=== PATIENT | male | born 1955 | race Caucasian/White ===

== ENCOUNTER → 2019-07-09 14:05 | Outpatient (CLI) | payer MEDICARE, OTHER, SELFPAY ==
--- NOTE | 2019-07-09 14:10 | CT_ITS ---
PROCEDURE: CT LUNG SCREENING CLINICAL INDICATION: H/O NICOTINE DEPENDENCE Fifty-three pack-year smoking history, asymptomatic for lung cancer COMPARISON: No exams were available for comparison TECHNIQUE: The exam was performed on a GE Light Speed [address] scanner using 2.90 mGy CTDI. A low dose helical CT CHEST was performed on a multi-detector scanner. All CT scans at the facility use one or more dose reduction, viz: automated exposure control, ma/kV adjustment per patient size (including targeted exams where dose is matched to indication, i.e. head), or iterative reconstruction technique. The LDCT was performed in a facility that meets the criteria for the screening program. Data regarding this exam was submitted to ACR which is an approved registry. The order for this exam indicates that it came as a result of a lung cancer screening counseling shard decision-making visit that included all the elements required of such a visit including smoking cessation. The radiologist interpreting this exam meets the [facility] criteria for the LDCT lung cancer screening program. The exam is reported using the Lung-RADS classification scale and reported to the ACR registry. NOTE: This study was performed for the specific purposes of lung cancer screening and is not an alternative to diagnostic chest CT. RADIATION DOSE: CTDI vol(CT dose Index-volume) = 2.90mG DLP (Dose Length Product) = 108.12 mGcm Lung Rads Category: FINDINGS: There arm several small bilateral pulmonary nodular opacities most of which are calcified. These are 4 mm or less consistent with granulomas. There is a 3 mm noncalcified nodule in the right lower lobe posteriorly image 48 series 3. No suspicious nodules are evident. Calcified nodes are present in the hilum. OTHER FINDINGS: There are coronary artery calcifications. There 2 stones in the right kidney measuring up to 6 mm. Degenerative changes are present in the thoracic spine. Suspect COPD with hyperinflation and mild prominence of the interstitial markings. Gynecomastia IMPRESSION: BI-RADS category [address] benign. Recommend annual LD CT Other incidental findings as described above Dictated by: Chucho Taylor MD 07/26/2019 06:45 Electronically signed by Chucho Taylor MD in [place] 07/26/2019 06:45
== END ==
PROVIDERS: PCP Family Medicine; Visit Provider Family Medicine
DX: Z87.891 Personal history of nicotine dependence (principal); Z12.2 Encounter for screening for malignant neoplasm of respiratory organs

== ENCOUNTER → 2019-07-24 08:26 | Outpatient (CLI) | payer MEDICARE, OTHER, SELFPAY ==
[2019-07-24 14:18] LABS: Coronavirus 19 IgG Antibody Negative (Negative); Coronavirus 19 IgM Antibody Negative (Negative)
== END ==
PROVIDERS: Visit Provider Internal Medicine Gastroenterology
DX: Z01.818 Encounter for other preprocedural examination (principal)
CPT/HCPCS: 36415; 86328

== ENCOUNTER 2019-07-27 07:42 | Day surgery (SDC) | payer MEDICARE, OTHER, SELFPAY ==
[2019-07-22 11:08] VITALS: BMI 28.7
[2019-07-27] VITALS (7 sets, daily range): BP systolic 93–130; BP diastolic 57–83; PULSE 55–67; RESP 16–18; TEMP 36.1–36.6; O2SAT 94–97
--- NOTE | 2019-07-27 08:38 | P.PN_ITS ---
[facility] Anesthesia Checklist - Structural Data Admitted From: Home Planned Operative Procedure/s: colonoscopy Consent for Planned Operative Procedure(s) Verified: Yes - Airway Assessment C-Spine Mobility Assessed: Yes TMJ Mobility Assessed: Yes Dentition: Good Dentition - Neurological Assessment Level of Consciousness: Awake, Alert, Appropriate - Anesthesia Plan Anesthesia Risk discussed: Yes Anesthesia Plan: Verified ASA Class: II Anesthesia Type: MAC [facility] History I have reviewed the patient's past medical history: Yes Medical History: Denies:: Cancer, Diabetes Mellitus Type 1, Diabetes Mellitus Type 2, Internal Pacemaker, MRSA, Seizures *Have you ever received a pneumonia vaccine?: No *Have you received a flu vaccine this season?: No Anesthesia experience/problems:: none Laterality Cases: Right: Arthroscopy Knee Other Surgeries: No: Pacemaker Amputation: No Fractures: No - *Social History Educational Level: Completed High School Smoking Status: Current every day smoker Tobacco Type: cigarettes # Packs/Day (cigarettes): 1 Alcohol Intake: never Substance Use Type: denies use *Occupational Status:: retired *Travel in the last 8 weeks: None Family Hx:: No significant family history
--- NOTE | 2019-07-27 09:40 | P.PCN_ITS ---
[facility] Procedure Note Procedure Note:: Colonoscopy Procedure Report: Colonoscopy with submucosal injection and cold snare polypectomy Endoscopist: Chun Lal II, MD Referring physician: Pola Monreal MD Date of Procedure: July 27, 2019 Equipment: Olympus 180 variable stiffness pediatric colonoscope Sedation: MAC sedation Indication: Mr. Daniel is a 64-year-old gentleman who is here for follow-up screening/surveillance colonoscopy. His last colonoscopy was greater than 10 years ago (Dr. Tc Mason). The patient reports no abdominal pain, weight loss, change in his bowel habits or rectal bleeding. He reports no family history of colon cancer. Procedure: Prior to the procedure, a history and physical exam was performed, and patient's medications and allergies were reviewed. The risks, benefits and alternatives of the sedation and procedure were discussed with the patient. All questions were answered and informed consent was obtained. The patient was brought to the procedure room. Patient identification and proposed procedure were verified by the physician and the nurse. The patient was placed in a left lateral decubitus position and the scope was passed under direct vision. Throughout the procedure, the patient's blood pressure, pulse, and oxygen saturations were monitored continuously. The colonoscopy was accomplished without difficulty. The patient tolerated the procedure well. Findings: On digital rectal examination there was normal rectal tone. There were no external hemorrhoids. The prostate was 2+, smooth, soft, symmetric without nodules. The colonoscope was introduced through the anal canal to the rectum and advanced to the cecum. The ileocecal valve and appendiceal orifice were identified. The scope was advanced a short distance into the ileum which appeared grossly normal. The scope was then withdrawn into the colon. Within the cecum was a large wide-based 40 mm (4 cm) polyp that extended behind the ileocecal valve and was very difficult to visualize and less pulled or positioned. It was on a wide base so more than 10 mL of Eleview was injected submucosally to raise this polyp. Even a 3 cm large thin wire snare could only remove a large section of this. However, the major portion of the polyp volume was still remaining and difficult to visualize or removed colonoscopically. Portions of this large polyp were removed colonoscopically with the Montoya net. Because of the size and obscured location, it was deemed to be risky to completely remove colonoscopically. Upon withdrawal, the ascending colon was normal. There were transverse polyps x3 (4, 4 and 6 mm), descending polyps x3 (3, 5 and 7 mm) and sigmoid polyp x1 (6 mm). All of these were removed via cold snare polypectomy. There were a few scattered diverticuli in the distal descending and sigmoid colon. Upon retroflexion within the rectum there were grade 1-2 internal hemorrhoids. The preparation was excellent throughout with Graham Preparation Score of 9. The cecal time was 22 minutes. Impression: 1. Large advanced adenomatous cecal polyp (4 cm with wide base) status post partial piecemeal removal 2. Additional diminutive polyps x7 3. Mild left-sided diverticulosis 4. Grade 1-2 internal hemorrhoids Plan: Based upon the very wide size of this very advanced cecal polyp and its obscured location in a thin walled area of colon, I would favor surgical removal. I will discuss this with patient and family.
== END 2019-07-27 10:40 | disposition home or self-care (01) ==
LOC: OUTP 07:43
PROVIDERS: PCP Family Medicine; Visit Provider Internal Medicine Gastroenterology
PROC: 0DJD8ZZ Inspection of Lower Intestinal Tract, Via Natural or Artificial Opening Endoscopic (ICD-10-PCS; CPT 45378; principal; 2019-07-27 09:00)
DX: Z12.11 Encounter for screening for malignant neoplasm of colon (principal); K63.5 Polyp of colon; K57.30 Diverticulosis of large intestine without perforation or abscess without bleeding; K64.0 First degree hemorrhoids; Z72.0 Tobacco use; Z83.3 Family history of diabetes mellitus; Z82.49 Family history of ischemic heart disease and other diseases of the circulatory system; Z87.39 Personal history of other diseases of the musculoskeletal system and connective tissue; Z88.6 Allergy status to analgesic agent
CPT/HCPCS: 45381; 45385; 88305

== ENCOUNTER → 2019-08-11 07:26 | Outpatient (CLI) | payer MEDICARE, OTHER, SELFPAY ==
[2019-08-11 07:42] LABS: Basophils % 0.7 % (0.1-2.0); Eosinophils # 0.1 K/mm3 (0.0-0.4); Eosinophils % 2.6 % (0.1-12.0); Hematocrit 44.4 % (42.0-52.0); Hemoglobin 14.8 g/dL (14.1-18.0); Lymphocytes # 1.6 K/mm3 (0.7-4.5); Lymphocytes % 29.4 % (10-50); Mean Corpuscular HGB Conc 33.3 g/dL (31.8-35.4); Mean Corpuscular Hemoglobin 29.6 pg (27.0-31.2); Mean Corpuscular Volume 88.8 fl (80-94); Mean Platelet Volume 7.5 fl (7.4-10.4); Monocytes # 0.3 K/mm3 (0.1-1.0); Neutrophils # 3.2 K/mm3 (1.8-7.8); Neutrophils % 61.3 % (37.0-80.0); Platelet Count 197 K/mm3 (142-424); Red Cell Distribution Width 14.2 % (11.5-17.5); White Blood Count 5.3 K/mm3 (4.8-10.8)
--- NOTE | 2019-08-11 07:46 | ECG_ITS ---
APPROVED REPORT Exam: Resting ECG HR:57 bpm ECG Measurements Heart Rate 57 AXES NE 130 P 16 QRSd 122 QRS -38 QT 430 T 8 QTc 418 <Conclusion> Sinus bradycardia Left axis deviation RSR' or QR pattern in V1 suggests right ventricular conduction delay Abnormal ECG Electronically signed by : Andrew Amaral, 08/11/2019 14:05:28
[2019-08-11 08:35] LABS: Chloride 104 mmol/L (98-107); Potassium 4.6 mmoL/L (3.5-5.1); Sodium 139 mmol/L (136-145)
[2019-08-11 08:38] LABS: Alanine Aminotransferase 14 U/L (12-78); Albumin/Globulin Ratio 1.7 (1.1-1.8); Alkaline Phosphatase 74 U/L (38-126); Anion Gap 10.6 mEq/L (5-15); Aspartate Amino Transferase 25 U/L (17-59); Bilirubin,Total 0.6 mg/dl (0.2-1.3); Blood Urea Nitrogen 15 mg/dl (9-20); Carbon Dioxide 29 mmol/L (22.0-30.0); Estimated Glomerular Filt Rate 97 ml/min (>60); GFR (African American) 117 ML/MIN (>60); Globulin 2.3 g/dL (1.3-3.2); Glucose 99 mg/dl (74-100); Total Protein,Serum 6.3 g/dl (6.3-8.2)
[2019-08-11 10:39] LABS: Coronavirus 19 IgG Antibody Negative (Negative); Coronavirus 19 IgM Antibody Negative (Negative)
== END ==
PROVIDERS: Visit Provider Surgery
DX: Z01.812 Encounter for preprocedural laboratory examination (principal); D49.0 Neoplasm of unspecified behavior of digestive system; Z01.84 Encounter for antibody response examination
CPT/HCPCS: 36415; 80053; 85025; 86328; 93005

== ENCOUNTER 2019-08-12 07:20 | Inpatient (IN) | payer MEDICARE, OTHER, SELFPAY ==
[2019-08-10 09:49] VITALS: BMI 26.5
--- NOTE | 2019-08-10 09:49 | SUR.PREOP ---
spoke with pt and daughter, Radha, to preop and inform of need to come in in the morning for blood work, including Covid test as well as ekg Both verbalized understanding. Reviewed all prep with Radha and said pt has GoLytely and Neomycin and Emycin to take 08-11-19.
[2019-08-12] VITALS (24 sets, daily range): BP systolic 120–153; BP diastolic 67–82; PULSE 67–88; RESP 14–20; TEMP 36.4–43; O2SAT 90–98
--- NOTE | 2019-08-12 06:55 | HMH.ANESCL ---
[facility] Anesthesia Checklist - Structural Data Admitted From: Home Planned Operative Procedure/s: hemicolectomy Consent for Planned Operative Procedure(s) Verified: Yes - Additional verifications Anesthesia Reactions: No Hx Blood Transfusions: No Blood Transfusion Reaction: No - Airway Assessment C-Spine Mobility Assessed: Yes TMJ Mobility Assessed: Yes Dentition: Poor Dentition - Neurological Assessment Level of Consciousness: Awake, Alert, Appropriate - Anesthesia Plan Anesthesia Risk discussed: Yes Anesthesia Plan: Verified ASA Class: II Anesthesia Type: General [facility] History I have reviewed the patient's past medical history: Yes Medical History: Reports:: MRSA (1972) Denies:: Cancer, Diabetes Mellitus Type 1, Diabetes Mellitus Type 2, Internal Pacemaker, Seizures *Have you ever received a pneumonia vaccine?: No *Have you received a flu vaccine this season?: No Other Medical History: Denies: Blood Transfusion Reaction Anesthesia experience/problems:: none Laterality Cases: Right: Arthroscopy Knee Other Surgeries: Yes: Colonoscopy, Hernia Repair. No: Pacemaker Amputation: No Fractures: No - *Social History Smoking Status: Current every day smoker Tobacco Type: cigarettes # Packs/Day (cigarettes): 1 Alcohol Intake: current Alcohol Intake Frequency:: holidays/special occasions only Substance Use Type: denies use *Occupational Status:: employed *Travel in the last 8 weeks: None Family Hx:: Cancer
[2019-08-12 06:56] LABS: Activated Partial Thrombo Time 24.7 seconds (23.6-34.0); INR 1.14 (0.9-1.1); Prothrombin Time 11.6 seconds (9.4-11.8)
--- NOTE | 2019-08-12 08:17 | HMH.PHAVTE ---
[facility] Pharmacy VTE Monitoring - Patient Demographics Admission date: 08/12/19 Report Date: 08/12/19 Time: 08:17 Allergies/Adverse Reactions: Patient Allergies codeine [CODEINE] Adverse Reaction (Unknown, Verified 08/12/19 06:18) Height: 1.78 m Weight: 83.915 kg - VTE Risk Labs: VTE Related Lab Results PT 11.6 seconds (9.4-11.8) 08/12/19 06:30 INR 1.14 (0.9-1.1) H 08/12/19 06:30 APTT 24.7 seconds (23.6-34.0) 08/12/19 06:30 Clinical Trial Participant: No - Prophylaxis VTE Prophylaxis Ordered?: Yes Types of VTE Prophylaxis: TEDS Knee High
--- NOTE | 2019-08-12 09:16 | HMH.OPNOTE ---
Date of procedure: 08/12/19 Pre-op Diagnosis:: Colon neoplasm of uncertain behavior Post-op Diagnosis:: Same Procedure performed:: Right hemicolectomy Surgeon:: Alexis Casillas MD Resident Care Aide(s):: Dr. Andrew Andrade APPEALS BOARD REFEREE:: Andrew Harvey Anesthesia: GETA Estimated blood loss (mL): 100 Clinical Note:: This is a 64-year-old gentleman who recently underwent colonoscopy by Dr. Chun Lal. A cecal polyp that was not amenable to colonoscopic removal was noted. Partial removal did reveal adenomatous changes. No high-grade dysplasia or invasive carcinoma was noted. The surgical service was consulted for right hemicolectomy. Operative findings:: Large polypoid lesion in cecum/ileocecal valve confirmed No obvious adenopathy Operative note:: After informed consent was obtained the patient was taken to the operating room and placed in the supine position. General anesthesia was induced and his abdomen was prepped and draped in a sterile fashion. A midline laparotomy incision was made. The abdomen was entered and the Bookwalter retractor was placed in position. The right colon was carefully retracted medially as the lateral attachments were taken down with a combination of blunt dissection and electrocautery. A transection site just proximal to the ileocecal valve was carefully elevated. A window was made in the mesentery and a EDWARD stapling device was utilized to transect the distal ileum. Careful dissection then continued around the hepatic flexure. The proximal transverse colon was carefully elevated. A window was made in the mesentery and a EDWARD stapling device was utilized to transect at this site. A combination of blunt dissection, electrocautery, Enseal, and suture ligation was then utilized to take the mesentery as the right colon was carefully elevated. The right colon was passed off for pathologic evaluation. The specimen was opened on the back table to confirm a large polypoid lesion of the cecum/ileocecal valve. Attention was then turned to anastomosis and closure. The distal ileum and transverse colon were brought into [id number] approximation. A EDWARD stapler was utilized to create a common otomy which was then closed with a TX stapling device. The staple line was imbricated with interrupted 3-0 Surgilon. The crotch was also secured with the same suture. The mesenteric defect was closed with running Vicryl suture. The abdominal cavity was irrigated. No sign of injury or active bleeding was noted. Fascia was reapproximated with #2 Novafil. Skin was stapled and dressings were applied. The patient's anesthetic agents were reversed and he was extubated prior to transfer to recovery. Condition: stable Disposition: PACU Specimens:: Right colon Complications:: No immediate
--- NOTE | 2019-08-12 09:21 | HMH.ANESI ---
[facility] Anesthesia Record Part I Intake, IV Amount: 1,400 Estimated blood loss (mL): 100 Urine output (mL): 60 Blood Products used (#): none Blood Pressure: 120/73 SaO2: 95 Pulse Rate: 69 Respiratory Rate: 20 Temperature: 97.5 F Patient is:: Drowsy, Stable Stable to PACU at:: 09:17
[2019-08-12 10:05] LABS: Microscopic,Cath URINE MICROSCOPIC (MICROSCOPIC)
[2019-08-12 10:10] LABS: Appearance,Urine/Cath CLEAR (Clear); Bilirubin,Cath Negative (Negative); Blood, Urine/Cath TRACE-L (Negative); Color,Urine/Cath YELLOW (Yellow); Glucose,Urine/Cath (UA) Negative (Negative); Ketones,Urine/Cath TRACE (Negative); Leukocyte Esterase,Cath Negative (Negative); Nitrate,Cath Negative (Negative); PH,Urine/Cath 5.5 (5.0-8.5); Protein,Urine/Cath Negative (Negative); Specific Gravity, Urine/Cath >= 1.030 (1.005-1.030); Urobilinogen,Cath 0.2 EU/dl (0.2)
[2019-08-12 10:19] LABS: Squamous Epithelial Ur./Cath Occasional #/hpf (0-5); WBC,Urine/Cath Occasional #/hpf (0-3)
--- NOTE | 2019-08-12 13:06 | P.PN_ITS ---
[facility] Anesthesia Record Part II Discharge Time: 09:47 Destination: Medical Surgical Department PACU nurse assessment reviewed?: Yes Patient Condition:: Good Anesthesia Complications:: None Swallowing reflex intact?: Yes Cyanosis?: No Blood Pressure: 133/70 Pulse Rate: 82 Temperature: 98.0 F Mental Status: Alert & Oriented Pain level:: 5 Nausea and/or vomitting:: None Intake, IV Amount: 50
--- NOTE | 2019-08-12 17:25 | PC.NURSE ---
PATIENT A&O X4, LUNGS DIMINSHED, PULSES EQUAL. MIDLINE INCISION, DRESSING GAUZE WITH TEGADERM. SCANT AMOUNT OF BLOODY DRAINAGE. PATIENT SAT ON SIDE OF BED, TOLERATED WELL. THIS RN HAS ATTEMPTED TO WEAN PATIENT OFF OF O2 NC. O2 STATES DROP TO 88% ON RA. PATIENT IS CURRENTLY ON 1L NC WITH 94% O2 STATS. NO OTHER CONCERNS AT THIS TIME.
--- NOTE | 2019-08-12 18:25 | PC.NURSE ---
PATIENT RECEIVED 7MG OF MORPHINE FROM WRAPPING MACHINE HELPER PUMP.
--- NOTE | 2019-08-12 19:07 | PC.NURSE ---
report given to umm
[2019-08-13] VITALS (11 sets, daily range): BP systolic 119–157; BP diastolic 67–88; PULSE 72–91; RESP 16–19; TEMP 36.6–37.3; O2SAT 92–98; BMI 27.1; BMI 565536.9
--- NOTE | 2019-08-13 02:52 | PC.NURSE ---
A&OX4 T/O SHIFT. PT TOLERATING RA WELL T/O SHIFT. PT HAS REMAINED IN BED, AND HAS BEEN RESTING WITH EYES CLOSED MAJORITY OF SHIFT. SCUDS PRESENT TO BLE. PT TOLERATING NPO DIET WELL. POPULATION HEALTH COACH PUMP PRESENT. PT HAS HAD NO C/O THUS FAR THIS SHIFT. INCISION PRESENT TO MIDLINE OF ABD. SLIGHT SANG DRAINAGE PRESENT. DRESSING CDI. ALL BOWEL SOUNDS ACTIVE PER AUSCULTATION. F/C PRESENT DRAINING BRIGHT YELLOW URINE. VSS WILL CONTINUE TO MONITOR.
--- NOTE | 2019-08-13 05:17 | PC.NURSE ---
PT HAS RECEIVED 5MG OF MORPHINE THIS SHIFT. PUMP CLEARED AT THIS TIME.
[2019-08-13 06:35] LABS: Chloride 104 mmol/L (98-107); Potassium 4.8 mmoL/L (3.5-5.1); Sodium 133 mmol/L (136-145)
[2019-08-13 06:36] LABS: Hematocrit 42.6 % (42.0-52.0); Hemoglobin 14.3 g/dL (14.1-18.0); Lymphocytes % 8.9 % (10-50); Mean Corpuscular HGB Conc 33.5 g/dL (31.8-35.4); Mean Corpuscular Hemoglobin 29.7 pg (27.0-31.2); Mean Corpuscular Volume 88.7 fl (80-94); Mean Platelet Volume 7.1 fl (7.4-10.4); Monocytes # 0.7 K/mm3 (0.1-1.0); Monocytes % 6.3 % (1.7-9.3); Neutrophils # 9.8 K/mm3 (1.8-7.8); Neutrophils % 84.8 % (37.0-80.0); Platelet Count 193 K/mm3 (142-424); Red Cell Distribution Width 14.2 % (11.5-17.5); White Blood Count 11.6 K/mm3 (4.8-10.8)
[2019-08-13 06:38] LABS: Anion Gap 3.8 mEq/L (5-15); Blood Urea Nitrogen 13 mg/dl (9-20); Calcium 8.5 mg/dl (8.4-10.2); Carbon Dioxide 30 mmol/L (22.0-30.0); Creatinine Clearance Estimated 88 mL/min (50-200); Estimated Glomerular Filt Rate 97 ml/min (>60); GFR (African American) 117 ML/MIN (>60); Glucose 128 mg/dl (74-100)
--- NOTE | 2019-08-13 06:52 | HMH.GSPN ---
Subjective Patient reports: no new complaints Exam Vital signs and Labs for Last 24 Hours: Temp Pulse Resp BP Pulse Ox 98.0 F 78 18 145/85 H 94 L 08/13/19 03:45 08/13/19 03:45 08/13/19 03:45 08/13/19 03:45 08/13/19 03:45 Laboratory Results - last 24 hr 08/12/19 06:30: PT 11.6, INR 1.14 H, APTT 24.7 08/12/19 07:15: Urine Color Yellow, Urine Appearance Clear, Urine pH 5.5, Ur Specific [place] >= 1.030, Urine Protein Negative, Urine Glucose (UA) Negative, Urine Ketones Trace, Urine Blood Trace-l, Urine Nitrate Negative, Urine Bilirubin Negative, Urine Urobilinogen 0.2, Ur Leukocyte Esterase Negative, Urine RBC 5-10, Urine WBC Occasional, Ur Squamous Epith Cells Occasional, Urine Bacteria None 08/13/19 06:00: WBC 11.6 H D, RBC 4.80, Hgb 14.3, Hct 42.6, MCV 88.7, MCH 29.7, MCHC 33.5, RDW 14.2, Plt Count 193, MPV 7.1 L, Neut % (Auto) 84.8 H, Lymph % (Auto) 8.9 L, [place] % (Auto) 6.3, Eos % (Auto) 0.0 L, Baso % (Auto) 0.0 L, Neut # (Auto) 9.8 H, Lymph # (Auto) 1.0, [place] # (Auto) 0.7, Eos # (Auto) 0.0, Baso # (Auto) 0.0 08/13/19 06:00: Sodium 133 L, Potassium 4.8, Chloride 104, Carbon Dioxide 30, Anion Gap 3.8 L, BUN 13, Creatinine 0.80, Estimated Creat Clear 88, Estimated GFR 97, Est GFR ( Amer) 117, Glucose 128 H, Calcium 8.5 I & O for Last 24 hours: Intake & Output 08/10/19 08/11/19 08/12/19 08/13/19 11:59 11:59 11:59 11:59 Intake Total 1400 / 1400 2653 / 2653 Output Total 100 / 100 1725 / 1725 Balance 1300 / 1300 928 / 928 Weight 185 lb 189 lb 8 oz - Constitutional no acute distress - *Routine Respiratory Exam Absent: respiratory distress - *Routine Cardiovascular Exam Present: RRR - *Routine Abdominal Exam Present: soft Comments: dressing in place. no erythema. 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 DC Huang Ambulate Await return of bowel function Current Visit: Yes
--- NOTE | 2019-08-13 17:30 | PC.NURSE ---
patient in recliner with safety measures in place. no issues at this time. incision to abd cdi. pt ambulated in hallway several times today. family visited patient. no changes on this shift.
[2019-08-14] VITALS (14 sets, daily range): BP systolic 123–163; BP diastolic 72–106; PULSE 75–85; RESP 16–20; TEMP 36.7–37.2; O2SAT 91–97; BMI 26.7
--- NOTE | 2019-08-14 01:00 | PC.NURSE ---
Pt's room air sat at rest = 92%.
--- NOTE | 2019-08-14 05:41 | PC.NURSE ---
A&OX4. PT HAS TOLERATED ROOM AIR WELL THROUGHOUT SHIFT. RESPIRATIONS CLEAR AND UNLABORED. WHEEZES NOTED BILATERALLY THROUGHOUT. HEART RATE REGULAR. INTERMITTENT NONPRODUCTIVE COUGH NOTED. NO EDEMA NOTED. HAND CONVERTER SUPERVISOR EQUAL. LR INFUSING AT 150ML/HR. SQL SSRS DEVELOPER PUMP IN PLACE WITH MORPHINE 1MG INFUSING EVERY 10 MINUTES NEEDED. PT TOLERATING WELL. HYPOACTIVE BOWEL SOUNDS NOTED. SOFT TENDER ABDOMEN NOTED. DRESSING NOTED TO MIDLINE OF ABDOMEN. CDI WITH SLIGHT SANGUINEOUS DRAINAGE NOTED UNCHANGED FROM BEGINNING OF SHIFT. WILL CONTINUE TO MONITOR. PT REPORTS NO FLATUS PASSED THIS SHIFT. PT HAS WALKED WITH STANDBY ASSISTANCE TO THE RESTROOM AND IN THE HALLWAY THROUGHOUT SHIFT. PT TOLERATED WELL. INCENTIVE SPIROMETER ENCOURAGED TO USE Q 1 HOUR WHILE AWAKE. CALL LIGHT WITHIN REACH. BED IN LOWEST POSITION. VSS. NO CONCERNS AT THIS TIME. WILL CONTINUE TO MONITOR.
--- NOTE | 2019-08-14 06:34 | PC.NURSE ---
CLEARED AMOUNT IN FINISHER COLD ROLLING PUMP IS 11.7 AT THE END OF SHIFT.
[2019-08-14 06:43] LABS: Basophils % 0.1 % (0.1-2.0); Chloride 101 mmol/L (98-107); Eosinophils % 0.5 % (0.1-12.0); Hematocrit 43.4 % (42.0-52.0); Hemoglobin 14.2 g/dL (14.1-18.0); Lymphocytes # 1.1 K/mm3 (0.7-4.5); Lymphocytes % 13.6 % (10-50); Mean Corpuscular HGB Conc 32.8 g/dL (31.8-35.4); Mean Corpuscular Hemoglobin 29.3 pg (27.0-31.2); Mean Corpuscular Volume 89.3 fl (80-94); Mean Platelet Volume 7.9 fl (7.4-10.4); Monocytes # 0.7 K/mm3 (0.1-1.0); Monocytes % 8.5 % (1.7-9.3); Neutrophils # 6.4 K/mm3 (1.8-7.8); Neutrophils % 77.2 % (37.0-80.0); Platelet Count 188 K/mm3 (142-424); Potassium 4.3 mmoL/L (3.5-5.1); Red Blood Count 4.85 M/mm3 (4.60-6.20); Red Cell Distribution Width 14.1 % (11.5-17.5); Sodium 134 mmol/L (136-145); White Blood Count 8.3 K/mm3 (4.8-10.8)
[2019-08-14 06:46] LABS: Anion Gap 9.3 mEq/L (5-15); Blood Urea Nitrogen 14 mg/dl (9-20); Calcium 8.8 mg/dl (8.4-10.2); Carbon Dioxide 28 mmol/L (22.0-30.0); Creatinine Clearance Estimated 87 mL/min (50-200); Estimated Glomerular Filt Rate 113 ml/min (>60); GFR (African American) 137 ML/MIN (>60); Glucose 94 mg/dl (74-100)
--- NOTE | 2019-08-14 07:10 | HMH.GSPN ---
Subjective Patient reports: no flatus, no bowel movement Narrative: ambulating Exam Vital signs and Labs for Last 24 Hours: Temp Pulse Resp BP Pulse Ox 98.5 F 82 18 147/79 H 95 08/14/19 06:00 08/14/19 06:00 08/14/19 06:00 08/14/19 06:00 08/14/19 06:00 Laboratory Results - last 24 hr 08/12/19 06:30: Carcinoembryonic Ag 3.0 08/14/19 05:55: WBC 8.3 D, RBC 4.85, Hgb 14.2, Hct 43.4, MCV 89.3, MCH 29.3, MCHC 32.8, RDW 14.1, Plt Count 188, MPV 7.9, Neut % (Auto) 77.2, Lymph % (Auto) 13.6, [place] % (Auto) 8.5, Eos % (Auto) 0.5, Baso % (Auto) 0.1, Neut # (Auto) 6.4, Lymph # (Auto) 1.1, [place] # (Auto) 0.7, Eos # (Auto) 0.0, Baso # (Auto) 0.0 08/14/19 05:55: Sodium 134 L, Potassium 4.3, Chloride 101, Carbon Dioxide 28, Anion Gap 9.3, BUN 14, Creatinine 0.70, Estimated Creat Clear 87, Estimated GFR 113, Est GFR ( Amer) 137, Glucose 94 D, Calcium 8.8 I & O for Last 24 hours: Intake & Output 08/11/19 08/12/19 08/13/19 08/14/19 11:59 11:59 11:59 11:59 Intake Total 1400 / 1400 2653 / 2653 3618 / 3618 Output Total 100 / 100 2175 / 2175 Balance 1300 / 1300 478 / 478 3618 / 3618 Weight 189 lb 8 oz 187 lb - Constitutional no acute distress - *Routine Respiratory Exam Absent: respiratory distress - *Routine Cardiovascular Exam Present: RRR - *Routine Abdominal Exam Present: soft Comments: Incision clean, dry, and intact. No erythema. 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 Await return of bowel function Change IV fluids to maintenance Sips and chips Current Visit: Yes
--- NOTE | 2019-08-14 19:02 | PC.NURSE ---
report given to alejandro
--- NOTE | 2019-08-14 19:05 | PC.NURSE ---
pt is sitting up in the chair. pt has only used a total of 1 mg of morphine this shift. ambulating in the king and to the bathroom. chewing gum. pt was offered ice chips but stated he was okay with the chewing gum for now. midline incision open to air. normal bowel sounds. vss. will continue to monitor.
[2019-08-15] VITALS (7 sets, daily range): BP systolic 90–144; BP diastolic 66–87; PULSE 66–79; RESP 16–24; TEMP 36.7–37.2; O2SAT 91–97; BMI 26.7
--- NOTE | 2019-08-15 03:36 | PC.NURSE ---
Pt has slept on and off t/o this shift. Pt has been up to chair all evening. LABEL PRESS OPERATOR pump running appropriately. Pt ambulates to bathroom independently. VSS. No complaints at this time. Call light within reach. Will continue to monitor for any changes.
--- NOTE | 2019-08-15 09:17 | P.PN_ITS ---
Subjective Narrative: Patient without significant complaints other than soreness . Still no flatus. Ambulating well. Exam Vital signs and Labs for Last 24 Hours: Temp Pulse Resp BP Pulse Ox 98.0 F 78 24 109/75 L 93 L 08/15/19 08:33 08/15/19 08:33 08/15/19 08:33 08/15/19 08:33 08/15/19 08:33 I & O for Last 24 hours: Intake & Output 08/12/19 08/13/19 08/14/19 08/15/19 11:59 11:59 11:59 11:59 Intake Total 1400 / 1400 2653 / 2653 3905 / 3905 1770 / 1770 Output Total 100 / 100 2175 / 2175 Balance 1300 / 1300 478 / 478 3905 / 3905 1770 / 1770 Weight 189 lb 8 oz 187 lb 187 lb 0.008 oz - *Routine Abdominal Exam Present: soft Comments: Incision clean. Progress Note: A&P (1) Neoplasm of uncertain behavior of ascending colon Status: Acute Current Visit: Yes Assessment and Plan for All Diagnoses:: Decrease IVF. May have few sips of clears. DC FIRE EQUIPMENT INSPECTOR and start oral pain meds.
--- NOTE | 2019-08-15 16:38 | PC.NURSE ---
Pt has been pleasant and cooperative this shift. A&O X4. LEARNING SUPPORT SERVICES DIRECTOR pump DC'd this shift. Pt has complained of pain X2 since, and has been medicated with Hydrocodone/APAP per APR. No complaints of SOA. Lungs sounds reveal inspiratory wheezing and expiratory rhonchi. Bowel sounds present in all 4 quadrants. No edema noted. No BM this shift. Abdominal incision is open to air and c/d/i. Pt is on room air with sats. >90%. Pt ambulates independently throughout the room, to the bathroom, and in the hallway. Pt received a shower and total linen change. Pt is still NPO status but has tolerated ice chips well today. Pt is also frequently chewing sugarless gum. 20 G peripheral IV located in the RT AC patent and infusing D5W 0.45% NS w/20K+ @ 100 ML/HR. VSS. Call light within reach. Will continue to monitor.
[2019-08-16] VITALS: BP 127/69; PULSE 73; RESP 20; TEMP 37.2; O2SAT 90
[2019-08-16 04:00] VITALS: BP 112/61; PULSE 69; RESP 20; TEMP 36.7; O2SAT 91
[2019-08-16 05:00] VITALS: BMI 260110.0
--- NOTE | 2019-08-16 05:38 | PC.NURSE ---
Pt has rested well this shift. At the beginning of the shift pt ambulated once in the king. Pt c/o of abdominal pain with movement x1 this shift, PRN medication administered per APR. No complaints as of this morning. Pt has had no bowel movement or flatulence this shift. Call light within reach, no complaints at this time. Will continue to monitor.
[2019-08-16 07:48] VITALS: BP 125/65; PULSE 64; RESP 16; TEMP 36.8; O2SAT 96
[2019-08-16 07:49] VITALS: O2SAT 95
--- NOTE | 2019-08-16 09:38 | HMH.GSPN ---
Subjective Patient reports: no new complaints Narrative: Ambulating extremely well. No nausea. Still no flatus! Exam Vital signs and Labs for Last 24 Hours: Temp Pulse Resp BP Pulse Ox 98.3 F 64 16 125/65 95 08/16/19 07:48 08/16/19 07:48 08/16/19 07:48 08/16/19 07:48 08/16/19 07:49 I & O for Last 24 hours: Intake & Output 08/13/19 08/14/19 08/15/19 08/16/19 11:59 11:59 11:59 11:59 Intake Total 2653 / 2653 3905 / 3905 1770 / 1770 4031 / 4031 Output Total 2175 / 2175 400 / 400 Balance 478 / 478 3905 / 3905 1370 / 1370 4031 / 4031 Weight 189 lb 8 oz 187 lb 187 lb 0.008 oz 181 lb 4.8 oz - *Routine Abdominal Exam Present: soft Progress Note: A&P (1) Neoplasm of uncertain behavior of ascending colon Status: Acute Current Visit: Yes Assessment and Plan for All Diagnoses:: Start clear liquids.
[2019-08-16 16:00] VITALS: BP 119/66; PULSE 73; RESP 17; TEMP 36.7; O2SAT 94
--- NOTE | 2019-08-16 18:35 | PC.NURSE ---
ALERT AND ORIENTED X4. GOAL DIRECTED BEHAVIOR. PT HAS AMBULATED IN HALLWAY SEVERAL TIMES THIS SHIFT WITHOUT PROBLEM AND UP TO CHAIR FOR MOST OF THE DAY. PT HAD ONE MEDIUM SIZED WATERY YELLOW BM THIS EVENING. CLEAR LIQUID DIET TOLERATED WELL AND PT IS EAGER TO ADVANCE DIET. PAIN MEDS ADMINISTERED PER MAR. PT DENIES GI UPSET AND PAIN IS RELATED TO INCISION. VSS. NO DISTRESS NOTED. SAFETY MEASURES IN PLACE, WILL CONTINUE TO MONITOR
[2019-08-16 20:00] VITALS: BP 124/73; PULSE 73; RESP 20; TEMP 36.9; O2SAT 94
--- NOTE | 2019-08-17 03:20 | PC.NURSE ---
pt has slept t/o the night in bed. IV site in Right FA discontinued due to infiltration. 20 g was placed in new IV site on right FA. Pt has tolerated clear liquids this shift. Shows eagerness to have diet advanced. No other bowel movements since previous one on last day shift. Pt ambulated appropriately x1 this shift. No complaints at this time, will continue to monitor.
[2019-08-17 04:00] VITALS: BP 115/70; PULSE 73; RESP 18; TEMP 36.9; O2SAT 93
[2019-08-17 05:00] VITALS: BMI 25.9
[2019-08-17 07:51] VITALS: BP 99/68; PULSE 77; RESP 20; TEMP 36.7; O2SAT 94
--- NOTE | 2019-08-17 08:32 | HMH.GSPN ---
Subjective Narrative: Patient feels quite good with no complaints. He has been tolerating clear liquid diet. He states he began passing significant flatus and has had a couple of bowel movements. 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 Saline lock IV. Possible discharge this afternoon.
--- NOTE | 2019-08-17 11:35 | P.DS_ITS ---
General - General Admission date:: 08/12/19 Discharge date: 08/17/19 HPI HPI: This is a 64-year-old gentleman who recently underwent colonoscopy by Dr. Chun Lal. A cecal polyp that was not amenable to colonoscopic removal was noted. Partial removal did reveal adenomatous changes. No high-grade dysplasia or invasive carcinoma was noted. The surgical service was consulted for right hemicolectomy. Hospital Course Hospital Course: Patient was admitted on the day of surgery and taken to the operating room on 08/11/2018 at which time he underwent right hemicolectomy. He was found to have an adenomatous mass in the cecum at the ileocecal valve. There were good gross negative margins. There were no issues during his colon resection. Please see operative dictation for complete details. He was admitted for postoperative management. He remained on an n.p.o. status. Huang catheter was removed. For several days patient continued without any evidence of bowel function with no flatus. However he had no evidence of any nausea or abdominal bloating either. By postoperative day #4 he still stated he was not passing any flatus but his abdomen was soft and flat with no distention and he had no nausea. He was therefore started on a clear liquid diet at that time. He tolerated this extremely well and began passing significant amounts of flatus and had several bowel movements. His diet was advanced to full liquid which she tolerated without difficulty. His IV was saline locked. Plan was for removal of every other staple prior to discharge. After tolerating full liquid diet he was dis charged home in the afternoon of 08/17/2019 with follow-up with Dr. Casillas in 1 week. 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 Status: Acute Discharge Plan - Patient Discharge Instructions ACTIVITY: No heavy lifting DIET: advance to your usual diet Patient Instructions: DI for Surgical Site Infection, Catheter-Associated Urinary Tract Infection - Follow up Plan Follow up with: Alexis Casillas MD [Staff Physician] - 1 week Home Medications: Home Medications Medication Instructions Recorded Confirmed Type Hydrocod/Acet 5/325 mg [[place] 1 - 2 tab PO Q6HP PRN #9 tab 08/17/19 Rx 5/325mg tablet] Prescriptions/Medication Reconciliation: New Hydrocod/Acet 5/325 mg [[place] 5/325mg tablet] 1 - 2 tab PO Q6HP PRN #9 tab PRN Reason: Moderate Pain - Problem Reconciliation Problems Reviewed?: Yes
--- NOTE | 2019-08-17 12:14 | HMH.PHAINT ---
DISCHARGE COUNSELING COMPLETED ON [place] PT RECEIVED WRITTEN RX. PT DID NOT HAVE ANY QUESTIONS.
== END 2019-08-17 12:30 | disposition home or self-care (01) | DRG 331 ==
LOC: 2ND 07:20
PROVIDERS: Admitting Provider Surgery; PCP Family Medicine; Visit Provider Surgery
PROC: 0DTK0ZZ Resection of Ascending Colon, Open Approach (ICD-10-PCS; principal; 2019-08-12 07:30)
DX: D12.2 Benign neoplasm of ascending colon; Z72.0 Tobacco use; D37.4 Neoplasm of uncertain behavior of colon
CPT/HCPCS: 44140; 36415; 80048; 80053; 81001; 82378; 85025; 85610; 85730; 86328; 88309; 93005; 94761; 96372; 96374; J1335; J2405; J2543; J2710

== ENCOUNTER → 2020-08-25 15:40 | Outpatient (CLI) | payer MEDICARE, OTHER, SELFPAY ==
[2020-08-25 16:21] LABS: Basophils # 0.1 K/mm3 (0-0.2); Basophils % 0.8 % (0.1-2.0); Eosinophils # 0.2 K/mm3 (0.0-0.4); Eosinophils % 3.1 % (0.1-12.0); Hematocrit 42.8 % (42.0-52.0); Hemoglobin 14.3 g/dL (14.1-18.0); Lymphocytes % 30.4 % (10-50); Mean Corpuscular HGB Conc 33.4 g/dL (31.8-35.4); Mean Corpuscular Hemoglobin 29.1 pg (27.0-31.2); Mean Corpuscular Volume 86.9 fl (80-94); Mean Platelet Volume 7.6 fl (7.4-10.4); Monocytes # 0.4 K/mm3 (0.1-1.0); Monocytes % 6.2 % (1.7-9.3); Neutrophils # 3.8 K/mm3 (1.8-7.8); Neutrophils % 59.5 % (37.0-80.0); Platelet Count 225 K/mm3 (142-424); Red Blood Count 4.92 M/mm3 (4.60-6.20); Red Cell Distribution Width 14.6 % (11.5-17.5); White Blood Count 6.4 K/mm3 (4.8-10.8)
[2020-08-25 16:27] LABS: Chloride 108 mmol/L (98-107); Potassium 4.8 mmoL/L (3.5-5.1); Sodium 144 mmol/L (136-145)
[2020-08-25 16:30] LABS: Alanine Aminotransferase 14 U/L (12-78); Albumin Level 4.4 g/dl (3.5-5.0); Albumin/Globulin Ratio 1.6 (1.1-1.8); Alkaline Phosphatase 87 U/L (38-126); Anion Gap 12.8 mEq/L (5-15); Aspartate Amino Transferase 24 U/L (17-59); Bilirubin,Total 0.6 mg/dl (0.2-1.3); Blood Urea Nitrogen 25 mg/dl (9-20); Carbon Dioxide 28 mmol/L (22.0-30.0); Estimated Glomerular Filt Rate 75 ml/min (>60); GFR (African American) 90 ML/MIN (>60); Globulin 2.8 g/dL (1.3-3.2); Total Protein,Serum 7.2 g/dl (6.3-8.2)
[2020-08-25 16:31] LABS: Calcium 9.1 mg/dl (8.4-10.2); Glucose 121 mg/dl (74-100)
[2020-08-25 17:01] LABS: Thyroid Stimulating Hormone 1.66 uIU/mL (0.465-4.68)
[2020-08-25 23:56] LABS: Prostate Specific Ag Screen 0.5 ng/ml (0.0-4.0)
== END ==
PROVIDERS: Visit Provider Family Medicine
DX: Z00.00 Encounter for general adult medical examination without abnormal findings (principal); J44.9 Chronic obstructive pulmonary disease, unspecified; M15.0 Primary generalized (osteo)arthritis; R53.83 Other fatigue; Z12.5 Encounter for screening for malignant neoplasm of prostate
CPT/HCPCS: 36415; 80053; 84443; 85025; G0103

== ENCOUNTER → 2020-08-31 08:15 | Outpatient (CLI) | payer MEDICARE, OTHER, SELFPAY ==
--- NOTE | 2020-08-31 08:20 | US_ITS ---
PROCEDURE: US ABD. AORTA SCREENING CLINICAL INDICATION: AAA COMPARISON: CT ABDPELW/O CT ABD PELVIS W/O CONTRAST from 02/04/2013 FINDINGS: Normal caliber abdominal aorta. No evidence of aortic aneurysm to the mid aspect of the aorta. Proximal iliacs are unremarkable. IMPRESSION: No evidence of abdominal aortic aneurysm Dictated by: Chucoh Taylor MD 08/31/2020 10:30 Chucho Taylor MD in [place] 08/31/2020 10:30
== END ==
PROVIDERS: PCP Family Medicine; Visit Provider Family Medicine
DX: Z13.6 Encounter for screening for cardiovascular disorders (principal)
CPT/HCPCS: 76705

== ENCOUNTER → 2020-10-26 08:20 | Outpatient (CLI) | payer MEDICARE, OTHER, SELFPAY | PROVIDERS: Visit Provider Internal Medicine Gastroenterology | DX: Z01.812 Encounter for preprocedural laboratory examination (principal); Z20.822 Contact with and (suspected) exposure to COVID-19; Z12.11 Encounter for screening for malignant neoplasm of colon | CPT/HCPCS: U0003 ==

== ENCOUNTER 2020-10-28 07:32 | Day surgery (SDC) | payer MEDICARE, OTHER, SELFPAY ==
[2020-10-20 10:58] VITALS: BMI 28.8
[2020-10-28 07:56] VITALS: BP 111/73; PULSE 80; RESP 18; TEMP 36.6; O2SAT 95
--- NOTE | 2020-10-28 08:28 | HMH.ANESCL ---
[facility] Anesthesia Checklist - Structural Data Admitted From: Home Planned Operative Procedure/s: colonoscopy Consent for Planned Operative Procedure(s) Verified: Yes - Additional verifications Anesthesia Reactions: No Hx Blood Transfusions: No Blood Transfusion Reaction: No - Airway Assessment C-Spine Mobility Assessed: Yes TMJ Mobility Assessed: Yes Dentition: Good Dentition - Neurological Assessment Level of Consciousness: Awake, Alert, Appropriate - Anesthesia Plan Anesthesia Risk discussed: Yes Anesthesia Plan: Verified ASA Class: II Anesthesia Type: MAC [facility] History I have reviewed the patient's past medical history: Yes Medical History: Denies:: Cancer, Diabetes Mellitus Type 1, Diabetes Mellitus Type 2, Internal Pacemaker, MRSA, Seizures *Have you ever received a pneumonia vaccine?: No *Have you received a flu vaccine this season?: No Other Medical History: Denies: Blood Transfusion Reaction Anesthesia experience/problems:: none Laterality Cases: Right: Arthroscopy Knee Other Surgeries: Yes: Colonoscopy, Hernia Repair. No: Pacemaker Amputation: No Fractures: No - *Social History Last grade of school completed: High school graduate Smoking Status: Current every day smoker Tobacco Type: cigarettes # Packs/Day (cigarettes): 1 Alcohol Intake: never Alcohol Intake Frequency:: holidays/special occasions only Substance Use Type: denies use *Occupational Status:: employed Housing: house Household Members: significant other *Travel in the last 8 weeks: None Family Hx:: Unable to obtain
--- NOTE | 2020-10-28 08:29 | P.PCN_ITS ---
[facility] Procedure Note Procedure Note:: Colonoscopy Procedure Report: Colonoscopy with cold snare polypectomy Endoscopist: Chun Lal II, MD Referring physician: Pola Monreal M.D./Alexis Casillas M.D. Date of Procedure: October 28, 2020 Equipment: Olympus 190 variable stiffness pediatric colonoscope Sedation: MAC sedation Indication: Mr. Daniel is a 65-year-old gentleman who had a screening/surveillance colonoscopy with wi in July 2019 and was found to have a very large advanced cecal adenomatous polyp (4 cm). This was a tubulovillous adenoma. He did undergo right hemicolectomy subsequently (on 08/12/2019 by Alexis Casillas M.D.). The patient has done well with no complaints. He reports no abdominal pain, weight loss, change in his bowel habits or rectal bleeding. He reports no family history of colon cancer. He does state that he has a bowel movement every 3 to 4 days. Procedure: Prior to the procedure, a history and physical exam was performed, and patient's medications and allergies were reviewed. The risks, benefits and alternatives of the sedation and procedure were discussed with the patient. All questions were answered and informed consent was obtained. The patient was brought to the procedure room. Patient identification and proposed procedure were verified by the physician and the nurse. The patient was placed in a left lateral decubitus position and the scope was passed under direct vision. Throughout the procedure, the patient's blood pressure, pulse, and oxygen saturations were monitored continuously. The colonoscopy was accomplished without difficulty. The patient tolerated the procedure well. Findings: On digital rectal examination there was normal rectal tone. There were no external hemorrhoids. The prostate was 2+, smooth, soft, symmetric without nodules. The colonoscope was introduced through the anal canal to the rectum and advanced to the ileocolonic anastomosis. There was an end-to-side anastomosis which was widely patent and normal in appearance. The scope was advanced a short distance into the ileum which was normal. The scope was then withdrawn into the colon. The remaining ascending and transverse colon and mucosa were grossly normal. There were 3 diminutive polyps (transverse x2 (3 and 3 mm) and descending x1 (4 mm)) which were removed via cold snare polypectom y. There were very mildly scattered diverticuli throughout the descending and sigmoid colon (LEFT colon). The rectum itself was normal. Upon retroflexion within the rectum there were grade 2 internal hemorrhoids. The preparation was excellent throughout with [place] Preparation Score of 9. The cecal time was 12 minutes. Impression: 1. Diminutive colonic polyps x3 2. Mild left-sided diverticulosis 3. Prior right hemicolectomy with normal anastomosis 4. Grade 2 internal hemorrhoids Plan: Based upon the patient's prior and recent history of advanced adenomatous polyp/tubulovillous adenoma, I would recommend repeat surveillance in 3 years. I would encourage a fiber bowel regimen on a maintenance basis.
[2020-10-28 08:50] VITALS: BP 77/47; PULSE 69; RESP 18; TEMP 36.3; O2SAT 96
[2020-10-28 09:00] VITALS: BP 112/65; PULSE 68; RESP 18; O2SAT 96
[2020-10-28 09:10] VITALS: BP 72/42; PULSE 70; RESP 18; O2SAT 95
[2020-10-28 09:34] VITALS: BP 119/61; PULSE 60; RESP 18; O2SAT 96
--- NOTE | 2020-10-28 11:35 | HMH.PROC ---
[facility] Procedure Note Procedure Note:: Upper Endoscopy Procedure Report: Esophagogastroduodenoscopy with cold biopsies Endoscopost: Chun Lal II, MD Referring Physician: Hill Singh D.O. Date of Procedure: October 28, 2020 Equipment: Olympus GIF 190 standard upper endoscope Sedation: MAC sedation Indications: Mr. Daniel is a 65-year-old gentleman with dyspepsia. He does get epigastric abdominal discomfort and occasionally pain. He has more significant reflux postprandially. He reports moderate belching and pyrosis. He does report bloating and fullness. He states that his symptoms are worsened when he is constipated. He has occasional nausea and regurgitation. He reports no vomiting. He does report incomplete bowel evacuation. He reports no dysphagia or globus. This is his first upper endoscopy. The patient has not responded well to dietary measures and PPI therapy. Procedure: Prior to the procedure, a history and physical exam was performed, and patient's medications and allergies were reviewed. The risks, benefits and alternatives of the sedation and procedure were discussed with the patient. All questions were answered and informed consent was obtained. The patient was brought to the procedure room. Patient identification and proposed procedure were verified by the physician and the nurse. The patient was placed in a left lateral decubitus position and the scope was passed under direct vision. Throughout the procedure, the patient's blood pressure, pulse, and oxygen saturations were monitored continuously. The upper GI endoscopy was accomplished without difficulty. The patient tolerated the procedure well. Findings: The scope was passed directly into the upper esophagus and advanced to the third portion of the duodenum. The post bulbar duodenum and duodenal bulb were normal with normal mucosa and conniventes. The scope was withdrawn through a normal duodenal bulb and pylorus into the stomach. There was bile reflux with linear reactive gastropathy of the antrum. The remainder of the body and fundus of the stomach were grossly normal. Upon retroflexion there was a very small sliding 1 to 2 cm hiatal hernia. 2 biopsies were taken in the antrum and along the lesser curvature for histology to rule out gastritis and/or H pylori. The scope was then withdrawn into the esophagus. There was one tongue of salmon-colored mucosa that was biopsied to rule out Clarke's esophagus. There was evidence of mild grade A reflux esophagitis. There were some tertiary contractions and evidence of mild esophageal dysmotility. The remainder of the esophageal mucosa was normal. Impression: 1. Grade A reflux esophagitis with possible short segment Clarke's esophagus and very small sliding hiatal hernia 2. Bile reflux with linear reactive gastropathy Plan: I will follow-up the biopsies. The patient does have functional dyspepsia and functional GERD. This is related to gas pressure gradient secondary to his obstipation. We will discussed dietary measures, fiber bowel regimen, promotility therapy with or without PPI therapy. I would also consider [id number] FDgard when necessary.
[2020-10-28 12:18] VITALS: O2SAT 94
== END 2020-10-28 09:39 | disposition home or self-care (01) ==
LOC: OUTP 07:34
PROVIDERS: PCP Family Medicine; Visit Provider Internal Medicine Gastroenterology
PROC: 0DJD8ZZ Inspection of Lower Intestinal Tract, Via Natural or Artificial Opening Endoscopic (ICD-10-PCS; CPT 45378; principal; 2020-10-28 09:00)
DX: Z12.11 Encounter for screening for malignant neoplasm of colon (principal); Z86.010 Personal history of colon polyps; K63.5 Polyp of colon; K57.30 Diverticulosis of large intestine without perforation or abscess without bleeding; K64.1 Second degree hemorrhoids; Z90.49 Acquired absence of other specified parts of digestive tract; Z72.0 Tobacco use; Z88.6 Allergy status to analgesic agent
CPT/HCPCS: 45385; 88305

== ENCOUNTER → 2020-11-08 09:38 | Outpatient (CLI) | payer MEDICARE, OTHER, SELFPAY ==
--- NOTE | 2020-11-08 09:43 | XR_ITS ---
PROCEDURE: XR SHOULDER RT MIN 2V CLINICAL INDICATION: RT SHOULDER PAIN COMPARISON: No exams were available for comparison FINDINGS: No fracture or dislocation. No lytic or blastic change. There is normal mineralization. There is mild osteoarthritic change of the acromioclavicular and glenohumeral joint. Soft tissue calcification is present along the deltoid region nonspecific. No significant subacromial stenosis. Other findings:None. IMPRESSION: Mild osteoarthritic change Dictated by: Chucho Taylor MD 11/08/2020 13:44 Chucho Taylor MD in [place] 11/08/2020 13:44
== END ==
PROVIDERS: PCP Family Medicine; Visit Provider Family Medicine
DX: M25.511 Pain in right shoulder (principal)
CPT/HCPCS: 73030

== ENCOUNTER 2021-04-30 19:00 | Emergency (ER) | payer MEDICARE, OTHER, SELFPAY ==
[2021-04-30 19:00] VITALS: BP 156/82; PULSE 86; RESP 16; TEMP 36.8; O2SAT 95; BMI 28.7
--- NOTE | 2021-04-30 19:19 | CT_ITS ---
PROCEDURE INFORMATION: Exam: CT Abdomen And Pelvis Without Contrast Exam date and time: 04/30/2021 7:19 PM Age: 65 years old Clinical indication: Abdominal pain; Generalized; Additional info: R/O kidney stone TECHNIQUE: Imaging protocol: Computed tomography of the abdomen and pelvis without contrast. Total images: 305 Radiation optimization: All CT scans at this facility use at least one of these dose optimization techniques: automated exposure control; mA and/or kV adjustment per patient size (includes targeted exams where dose is matched to clinical indication); or iterative reconstruction. COMPARISON: US ABD. AORTA SCREENING 08/31/2020 8:26 AM FINDINGS: Lungs: Visualized lung bases are clear. Heart: Heart size normal. Moderate coronary artery calcification. Mediastinal space: The visualized distal esophagus is largely contracted without gross abnormality. Liver: Granulomatous calcifications in the liver. Normal contour. Well-circumscribed low-density lesion in the right hepatic lobe demonstrating benign CT features most consistent with hepatic cyst. No further imaging characterization/followup is required based on current consensus criteria. No intrahepatic biliary ductal dilatation. Gallbladder and bile ducts: The gallbladder is partially contracted but otherwise unremarkable. Nondilated common bile duct. Pancreas: Normal. No inflammatory changes or ductal dilation. Spleen: Granulomatous calcifications in the spleen without acute splenic abnormality. Adrenal glands: Normal. No adrenal mass. Kidneys and ureters: There is slight right-sided pelviectasis and caliectasis and slight right-sided ureterectasis down to the level of the pelvic brim where there is a 3 mm suspected distal right ureteral stone, with normal caliber ureter beyond this level. There are 3 nonobstructive right renal stones measuring up to 7 mm. There is a 3 mm nonobstructive left renal stone. Stomach and bowel: The stomach is largely contracted without gross abnormality. The small bowel is nondilated with no gross abnormality. Proximal subtotal colectomy with ileocolonic anastomosis demonstrating no gross complication. Appendix: The appendix is surgically absent. Intraperitoneal space: No free fluid or air. Vasculature: Moderate atherosclerotic aortoiliac calcification without aneurysm. Lymph nodes: No adenopathy. Urinary bladder: Unremarkable as visualized. Reproductive: Mildly enlarged prostate. Bones/joints: No acute osseous abnormalities. Osteopenia and moderate lumbar osteoarthritic/degenerative changes. Soft tissues: Very small epigastric fatty hernias just to the left of midline and at the midline with midline surgical scarring, probably small chronic incisional hernias. No associated bowel herniation or signs of strangulation. IMPRESSION: 1. Mild right hydronephrosis and proximal hydroureter with a 3 mm suspected distal right ureteral stone at the pelvic brim. 2. Additional small bilateral nonobstructive renal stones are present. 3. Additional nonemergent findings detailed above.
[2021-04-30 19:25] LABS: Basophils # 0.1 K/mm3 (0-0.2); Eosinophils # 0.2 K/mm3 (0.0-0.4); Eosinophils % 2.9 % (0.1-12.0); Hematocrit 47.3 % (42.0-52.0); Hemoglobin 14.9 g/dL (14.1-18.0); Lymphocytes # 1.9 K/mm3 (0.7-4.5); Lymphocytes % 30.9 % (10-50); Mean Corpuscular HGB Conc 31.6 g/dL (31.8-35.4); Mean Corpuscular Hemoglobin 28.6 pg (27.0-31.2); Mean Corpuscular Volume 90.5 fl (80-94); Mean Platelet Volume 7.6 fl (7.4-10.4); Monocytes # 0.3 K/mm3 (0.1-1.0); Monocytes % 4.3 % (1.7-9.3); Neutrophils # 3.8 K/mm3 (1.8-7.8); Platelet Count 288 K/mm3 (142-424); Red Blood Count 5.23 M/mm3 (4.60-6.20); Red Cell Distribution Width 13.9 % (11.5-17.5); White Blood Count 6.2 K/mm3 (4.8-10.8)
[2021-04-30 19:33] LABS: Alanine Aminotransferase 18 U/L (12-78); Albumin Level 4.5 g/dl (3.5-5.0); Albumin/Globulin Ratio 1.5 (1.1-1.8); Alkaline Phosphatase 80 U/L (38-126); Anion Gap 11.8 mEq/L (5-15); Aspartate Amino Transferase 26 U/L (17-59); Bilirubin,Total 0.4 mg/dl (0.2-1.3); Blood Urea Nitrogen 16 mg/dl (9-20); Calcium 9.3 mg/dl (8.4-10.2); Carbon Dioxide 28 mmol/L (22.0-30.0); Chloride 103 mmol/L (98-107); Creatinine Clearance Estimated 92 mL/min (50-200); Estimated Glomerular Filt Rate 96 ml/min (>60); GFR (African American) 117 ML/MIN (>60); Glucose 103 mg/dl (74-100); Potassium 4.8 mmoL/L (3.5-5.1); Sodium 138 mmol/L (136-145); Total Protein,Serum 7.5 g/dl (6.3-8.2)
[2021-04-30 19:49] LABS: Microscopic, Urine URINE MICROSCOPIC (MICROSCOPIC)
[2021-04-30 19:53] LABS: Appearance,Urine CLEAR (Clear); Bilirubin,Urine Negative (Negative); Blood, Urine 2+ (Negative); Color,Urine YELLOW (Yellow); Glucose,Urine (UA) Negative (Negative); Ketones,Urine Negative (Negative); Leukocyte Esterase,Urine Negative (Negative); Nitrate,Urine Negative (Negative); PH,Urine 6.5 (5.0-8.5); Protein,Urine Negative (Negative); Specific Gravity, Urine 1.025 (1.005-1.030); Urobilinogen,Urine 0.2 EU/dl (0.2)
[2021-04-30 19:59] LABS: Bacteria,Urine 1+ /lpf; RBC,Urine 20-50 #/hpf (0-3)
--- NOTE | 2021-04-30 20:43 | HMH.EDGENADL ---
ED Disposition Clinical Impression: Renal colic on right side Disposition: Home, Self-Care Condition on Discharge: Good Instructions: DI for Kidney Stones Additional Instructions: use meds and call pcp and urology for follow up Prescriptions: Tamsulosin HCl [Flomax 0.4mg capsule] 0.4 mg PO HS #10 cap Transmission Status: Pending to [id number] levoFLOXacin [Levaquin 500mg tab] 500 mg PO DAILY #7 tab Transmission Status: Pending to [id number] Referrals: Jose Daniel Monreal MD [Primary Care Provider] - - Critical Care Critical Care Time: No Attestation: On 04/30/21, the high probability of a clinically significant, sudden or life threatening deterioration of the following system(s) required my full and direct attention, intervention and personal management. The time I documented below is in addition to time spent performing reported procedures but includes the following listed in this critical care notation. Medical Decision Making - Medical Records Medical records reviewed: Yes: I reviewed the patient's medical records. - [place] Inquiry Pt receiving controlled substance: No Vital Signs: 04/30/21 19:00 Temperature 98.2 F Temperature Source Oral Pulse Rate [Right Radial] 86 Respiratory Rate 16 Blood Pressure [Right Arm] 156/82 H Blood Pressure Mean [Right Arm] 106 Blood Pressure Source [Right Arm] Automatic Cuff Blood Pressure Position [Right Arm] Sitting 02 Sat by Pulse Oximetry 95 Oxygen Delivery Method Room Air - Lab Data Lab results reviewed: Yes: I reviewed the patient's lab results. Lab Results 04/30/21 19:18: WBC 6.2, RBC 5.23, Hgb 14.9, Hct 47.3, MCV 90.5, MCH 28.6, MCHC 31.6 L, RDW 13.9, Plt Count 288, MPV 7.6, Neut % (Auto) 61.0, Lymph % (Auto) 30.9, Cotton % (Auto) 4.3, Eos % (Auto) 2.9, Baso % (Auto) 1.0, Neut # (Auto) 3.8, Lymph # (Auto) 1.9, Cotton # (Auto) 0.3, Eos # (Auto) 0.2, Baso # (Auto) 0.1 04/30/21 19:18: Sodium 138, Potassium 4.8, Chloride 103, Carbon Dioxide 28, Anion Gap 11.8, BUN 16, Creatinine 0.80, Estimated Creat Clear 92, Estimated GFR 96, Est GFR ( Amer) 117, Glucose 103 H, Calcium 9.3, Total Bilirubin 0.4, AST 26, ALT 18, Alkaline Phosphatase 80, Total Protein 7.5, Albumin 4.5, Globulin 3.0, Albumin/Globulin Ratio 1.5 04/30/21 19:45: Urine Color Yellow, Urine Appearance Clear, Urine pH 6.5, Ur Specific [place] 1.025, Urine Protein Negative, Urine Glucose (UA) Negative, Urine Ketones Negative, Urine Blood 2+, Urine Nitrate Negative, Urine Bilirubin Negative, Urine Urobilinogen 0.2, Ur Leukocyte Esterase Negative, Urine RBC 20-50, Urine WBC 10-20, Ur Squamous Epith Cells 3-5, Urine Bacteria 1+ Result diagrams: 04/30/21 19:18 04/30/21 19:18 Orders (Tests/Meds): ED MEDICATIONS Discontinued Medications Generic Name Dose Route Start Last Admin Trade Name Dwaine PRN Reason Stop Dose Admin Sodium Chloride 1,000 mls @ 999 mls/hr 04/30/21 19:30 04/30/21 19:22 Sod Chlor 0.9% 1000ml Bag IV 04/30/21 20:30 999 mls/hr .Q1H1M ENRIQUE Administration Ketorolac Tromethamine 30 mg 04/30/21 19:19 04/30/21 19:21 Ketorolac 30mg/Ml Vial IV 04/30/21 19:20 30 mg ONCE ONE Administration ORDERS Category Date Time Status Urine Culture Stat Micro 04/30/21 19:45 Received - CT Data CT Scan: Abdomen, Pelvis Time Received: 20:[address] Reviewed: Yes: I have viewed the radiologist's interpretation Preliminary Findings: Abnormal (see report ) Medical Decision Narrative: has flank pain with acute renal colic and stable exam and labs - will start treatment and refer to urology General Adult HPI - General Chief complaint: PAIN Stated complaint: poss kidney stone Time Seen by Provider: 04/30/21 20:00 Mode of Arrival: Ambulatory Source of Information: Patient, Medical Record Limitations: No Limitations Description of Symptoms (Recalled from ER Triage Doc. by RN): Pt reports right flank pain that started 30 min prior to ar
[2021-04-30 21:04] VITALS: BP 146/82; PULSE 76; RESP 16; TEMP 36.6; O2SAT 95
== END 2021-04-30 21:07 | disposition home or self-care (01) ==
PROVIDERS: Emergency Provider Emergency Medicine; PCP Family Medicine
DX: N23 Unspecified renal colic (principal); Z87.442 Personal history of urinary calculi; F17.210 Nicotine dependence, cigarettes, uncomplicated
CPT/HCPCS: 74176; 80053; 81001; 85025; 87086; 96365; 96375; 99284

== ENCOUNTER 2021-06-05 05:24 | Emergency (ER) | payer MEDICARE, OTHER, SELFPAY ==
[2021-06-05 05:24] VITALS: BP 157/91; PULSE 81; RESP 20; TEMP 36.6; O2SAT 95; BMI 28.7
[2021-06-05 05:34] LABS: Microscopic, Urine URINE MICROSCOPIC (MICROSCOPIC)
[2021-06-05 05:35] LABS: Appearance,Urine CLEAR (Clear); Bilirubin,Urine Negative (Negative); Blood, Urine 3+ (Negative); Color,Urine YELLOW (Yellow); Glucose,Urine (UA) Negative (Negative); Ketones,Urine TRACE (Negative); Leukocyte Esterase,Urine Negative (Negative); Nitrate,Urine Negative (Negative); PH,Urine 6.5 (5.0-8.5); Protein,Urine Negative (Negative); Urobilinogen,Urine 0.2 EU/dl (0.2)
[2021-06-05 05:37] LABS: Amorphous Sediment,Urine Trace /lpf; RBC,Urine 20-50 #/hpf (0-3)
--- NOTE | 2021-06-05 05:47 | CT_ITS ---
PROCEDURE INFORMATION: Exam: CT Abdomen And Pelvis Without Contrast Exam date and time: 06/05/2021 5:59 AM Age: 65 years old Clinical indication: Abdominal pain; Flank; Right; Additional info: Right flank pain, h/o stones TECHNIQUE: Imaging protocol: Computed tomography of the abdomen and pelvis without contrast. Radiation optimization: All CT scans at this facility use at least one of these dose optimization techniques: automated exposure control; mA and/or kV adjustment per patient size (includes targeted exams where dose is matched to clinical indication); or iterative reconstruction. COMPARISON: CT ABDOMEN PELVIS WO CON 04/30/2021 6:22 PM FINDINGS: Liver: Calcified hepatic granulomas. Gallbladder and bile ducts: Normal. No calcified stones. No ductal dilation. Pancreas: Normal. No ductal dilation. Spleen: Calcified splenic granuloma. Adrenal glands: Normal. No mass. Kidneys and ureters: 6 mm proximal right ureteral calculus associated with mild right hydronephrosis. Additional bilateral nonobstructing renal calculi. Stomach and bowel: Prior right colon anastomosis. Appendix: Appendix not visualized. Intraperitoneal space: Unremarkable. No free air. No significant fluid collection. Arteries: Few atheromatous vascular calcifications. Lymph nodes: Unremarkable. No enlarged lymph nodes. Urinary bladder: Unremarkable as visualized. Reproductive: Prostatic calcifications. Bones/joints: Moderate multilevel spondylosis with convex left scoliosis. Soft tissues: Unremarkable. IMPRESSION: 1. Proximal right ureteral calculus causing mild obstruction. 2. Additional bilateral nonobstructing renal calculi. 3. Other nonacute findings above.
--- NOTE | 2021-06-05 06:00 | PC.NURSE ---
pt to CT
[2021-06-05 06:03] LABS: Basophils # 0.2 K/mm3 (0-0.2); Basophils % 2.8 % (0.1-2.0); Eosinophils # 0.1 K/mm3 (0.0-0.4); Eosinophils % 0.9 % (0.1-12.0); Hematocrit 49.1 % (42.0-52.0); Hemoglobin 15.9 g/dL (14.1-18.0); Lymphocytes # 0.8 K/mm3 (0.7-4.5); Lymphocytes % 9.4 % (10-50); Mean Corpuscular HGB Conc 32.5 g/dL (31.8-35.4); Mean Corpuscular Hemoglobin 28.9 pg (27.0-31.2); Mean Corpuscular Volume 88.9 fl (80-94); Mean Platelet Volume 7.3 fl (7.4-10.4); Monocytes # 0.5 K/mm3 (0.1-1.0); Monocytes % 6.8 % (1.7-9.3); Neutrophils # 6.4 K/mm3 (1.8-7.8); Platelet Count 222 K/mm3 (142-424); Red Blood Count 5.53 M/mm3 (4.60-6.20); Red Cell Distribution Width 13.9 % (11.5-17.5)
--- NOTE | 2021-06-05 06:10 | PC.NURSE ---
pt back from ct
[2021-06-05 06:11] LABS: Chloride 102 mmol/L (98-107); Potassium 4.7 mmoL/L (3.5-5.1); Sodium 133 mmol/L (136-145)
[2021-06-05 06:13] LABS: Blood Urea Nitrogen 16 mg/dl (9-20); Creatinine Clearance Estimated 92 mL/min (50-200); Estimated Glomerular Filt Rate 75 ml/min (>60); GFR (African American) 90 ML/MIN (>60)
[2021-06-05 06:14] LABS: Alanine Aminotransferase 21 U/L (12-78); Albumin Level 4.3 g/dl (3.5-5.0); Albumin/Globulin Ratio 1.3 (1.1-1.8); Alkaline Phosphatase 105 U/L (38-126); Amylase 62 U/L (30-110); Anion Gap 8.7 mEq/L (5-15); Aspartate Amino Transferase 33 U/L (17-59); Bilirubin,Total 1.2 mg/dl (0.2-1.3); Calcium 8.7 mg/dl (8.4-10.2); Carbon Dioxide 27 mmol/L (22.0-30.0); Globulin 3.4 g/dL (1.3-3.2); Glucose 111 mg/dl (74-100); Lipase 64 U/L (23-300); Total Protein,Serum 7.7 g/dl (6.3-8.2)
[2021-06-05 06:21] LABS: C-Reactive Protein 18.3 mg/L (0-4)
--- NOTE | 2021-06-05 06:24 | HMH.EDNVD ---
ED Disposition Clinical Impression: Renal colic on right side Disposition: Home, Self-Care Condition on Discharge: Good Instructions: DI for Kidney Stones Additional Instructions: call pcp and dr alarcon for follow up Prescriptions: Tamsulosin HCl [Flomax 0.4mg capsule] 0.4 mg PO HS #30 cap Transmission Status: Pending to [id number] Referrals: Jose Daniel Monreal MD [Primary Care Provider] - Cory Alarcon MD [Staff Physician] - - Critical Care Critical Care Time: No Attestation: On 06/05/21, the high probability of a clinically significant, sudden or life threatening deterioration of the following system(s) required my full and direct attention, intervention and personal management. The time I documented below is in addition to time spent performing reported procedures but includes the following listed in this critical care notation. Medical Decision Making - Medical Records Medical records reviewed: Yes: I reviewed the patient's medical records. - Genaro Inquiry Pt receiving controlled substance: No Vital Signs: 06/05/21 05:24 Temperature 97.9 F Temperature Source Oral Pulse Rate [Right] 81 Respiratory Rate 20 Blood Pressure [Right Arm] 157/91 H Blood Pressure Mean [Right Arm] 113 Blood Pressure Source [Right Arm] Automatic Cuff 02 Sat by Pulse Oximetry 95 Oxygen Delivery Method Room Air - Lab Data Lab results reviewed: Yes: I reviewed the patient's lab results. Lab Results 06/05/21 05:30: Urine Color Yellow, Urine Appearance Clear, Urine pH 6.5, Ur Specific [place] 1.020, Urine Protein Negative, Urine Glucose (UA) Negative, Urine Ketones Trace, Urine Blood 3+, Urine Nitrate Negative, Urine Bilirubin Negative, Urine Urobilinogen 0.2, Ur Leukocyte Esterase Negative, Urine RBC 20-50, Amorphous Sediment Trace 06/05/21 05:38: ESR 1 06/05/21 05:38: C-Reactive Protein 18.3 H, Amylase 62 06/05/21 05:38: WBC 8.0, RBC 5.53, Hgb 15.9, Hct 49.1, MCV 88.9, MCH 28.9, MCHC 32.5, RDW 13.9, Plt Count 222, MPV 7.3 L, Neut % (Auto) 80.0, Lymph % (Auto) 9.4 L, [place] % (Auto) 6.8, Eos % (Auto) 0.9, Baso % (Auto) 2.8 H, Neut # (Auto) 6.4, Lymph # (Auto) 0.8, [place] # (Auto) 0.5, Eos # (Auto) 0.1, Baso # (Auto) 0.2 06/05/21 05:38: Sodium 133 L, Potassium 4.7, Chloride 102, Carbon Dioxide 27, Anion Gap 8.7, BUN 16, Creatinine 1.00, Estimated Creat Clear 92, Estimated GFR 75, Est GFR ( Amer) 90, Glucose 111 H, Calcium 8.7, Total Bilirubin 1.2, AST 33, ALT 21, Alkaline Phosphatase 105, Total Protein 7.7, Albumin 4.3, Globulin 3.4 H, Albumin/Globulin Ratio 1.3, Lipase 64 Result diagrams: 06/05/21 05:38 06/05/21 05:38 Orders (Tests/Meds): ED MEDICATIONS Generic Name Dose Route Start Last Admin Trade Name Freq PRN Reason Stop Dose Admin Sodium Chloride 1,000 mls @ 999 mls/hr 06/05/21 06:00 06/05/21 05:52 Sod Chlor 0.45% 1000ml Bag IV 06/05/21 07:00 999 mls/hr .Q1H1M ENRIQUE Administration Discontinued Medications Generic Name Dose Route Start Last Admin Trade Name Freq PRN Reason Stop Dose Admin Ketorolac Tromethamine 30 mg 06/05/21 05:47 06/05/21 05:49 Ketorolac 30mg/Ml Vial IV 06/05/21 05:48 30 mg ONCE ONE Administration Ondansetron HCl 4 mg 06/05/21 06:09 06/05/21 06:10 Ondansetron 4mg/2ml Vial IV 06/05/21 06:10 4 mg ONCE ONE Administration Tamsulosin HCl 0.4 mg 06/05/21 07:04 06/05/21 07:05 Tamsulosin 0.4mg Capsule PO 06/05/21 07:05 0.4 mg ONCE ONE Administration ORDERS Category Date Time Status Amylase Stat Lab 06/05/21 05:38 Results C-Reactive Protein Stat Lab 06/05/21 05:38 Results Procalcitonin Stat Lab 06/05/21 05:38 Results - CT Data CT Scan: Abdomen, Pelvis Time Received: 07:[address] Reviewed: Yes: I have viewed the radiologist's interpretation Preliminary Findings: Abnormal (see report ) Medical Decision Narrative: has acute flank pain with hx of stones with rt acute stone Nausea/Vomiting/Diarrhea HPI
[2021-06-05 06:48] LABS: Erythrocyte Sedimentation Rate 1 mm/hr (0-20)
[2021-06-05 07:31] LABS: Procalcitonin 0.052 ng/mL (0.0-2.0)
[2021-06-05 07:43] VITALS: BP 135/78; PULSE 74; RESP 15; TEMP 36.8; O2SAT 98
== END 2021-06-05 07:44 | disposition home or self-care (01) ==
PROVIDERS: Emergency Provider Emergency Medicine; PCP Family Medicine
DX: N23 Unspecified renal colic (principal); J45.909 Unspecified asthma, uncomplicated; F17.210 Nicotine dependence, cigarettes, uncomplicated; Z79.1 Long term (current) use of non-steroidal anti-inflammatories (NSAID); Z88.5 Allergy status to narcotic agent; Z87.442 Personal history of urinary calculi
CPT/HCPCS: 74176; 80053; 81001; 82150; 83690; 84145; 85025; 85651; 86140; 96361; 96365; 96374; 96375; 99285; J2405

== ENCOUNTER 2021-06-06 07:59 | Emergency (ER) | payer MEDICARE, OTHER, SELFPAY ==
[2021-06-06 08:00] VITALS: BP 145/80; PULSE 82; RESP 18; TEMP 36.7; O2SAT 93; BMI 28.7
--- NOTE | 2021-06-06 08:05 | HMH.EDGENADL ---
ED Disposition Clinical Impression: Kidney stone on right side Disposition: Home, Self-Care Condition on Discharge: Good Instructions: DI for Kidney Stones Additional Instructions: You have been evaluated for flank pain, kidney stone. Please take anti-inflammatory medication, like 600 mg ibuprofen every 6 hours. Take [place] as needed for breakthrough pain. Drink fluids to stay hydrated. Follow-up with Dr. West tomorrow as scheduled. Return to the emergency department at once for any new or worsening symptoms, pain or other concerns. Prescriptions: Hydrocod/Acet 5/325 mg [[place] 5/325mg tablet] 1 tab PO Q6HP PRN #8 tab PRN Reason: Severe Pain Transmission Status: [facility] Ibuprofen [Ibuprofen 600mg Tablet] 600 mg PO Q6 #30 tab Transmission Status: Pending to [facility] Referrals: Jose Daniel Monreal MD [Primary Care Provider] - Time of Disposition: 09:07 - Critical Care Critical Care Time: No Attestation: On , the high probability of a clinically significant, sudden or life threatening deterioration of the following system(s) required my full and direct attention, intervention and personal management. The time I documented below is in addition to time spent performing reported procedures but includes the following listed in this critical care notation. Medical Decision Making - Medical Records Medical records reviewed: Yes: I reviewed the patient's medical records. - Genaro Inquiry Pt receiving controlled substance: No Vital Signs: 06/06/21 08:00 06/06/21 08:31 Temperature 98.1 F Temperature Source Oral Pulse Rate 81 Pulse Rate [Right Radial] 82 Respiratory Rate 18 Blood Pressure 128/82 Blood Pressure [Right Arm] 145/80 H Blood Pressure Mean [Right Arm] 101 Blood Pressure Source [Right Arm] Automatic Cuff Blood Pressure Position [Right Arm] Sitting 02 Sat by Pulse Oximetry 93 L 95 Oxygen Delivery Method Room Air - Lab Data Lab Results 06/06/21 08:18: WBC 7.9, RBC 5.08, Hgb 14.8, Hct 46.0, MCV 90.5, MCH 29.2, MCHC 32.2, RDW 13.9, Plt Count 225, MPV 7.3 L, Neut % (Auto) 78.0, Lymph % (Auto) 12.6, Lane % (Auto) 7.2, Eos % (Auto) 1.4, Baso % (Auto) 0.7, Neut # (Auto) 6.1, Lymph # (Auto) 1.0, Lane # (Auto) 0.6, Eos # (Auto) 0.1, Baso # (Auto) 0.1 06/06/21 08:18: Sodium 134 L, Potassium 4.7, Chloride 104, Carbon Dioxide 27, Anion Gap 7.7, BUN 19, Creatinine 1.00, Estimated Creat Clear 92, Estimated GFR 75, Est GFR ( Amer) 90, Glucose 100, Calcium 8.4, Total Bilirubin 0.8, AST 30, ALT 18, Alkaline Phosphatase 95, Total Protein 7.1, Albumin 4.1, Globulin 3.0, Albumin/Globulin Ratio 1.4 06/06/21 08:54: Urine Color Yellow, Urine Appearance Clear, Urine pH 6.5, Ur Specific [place] 1.020, Urine Protein Negative, Urine Glucose (UA) Negative, Urine Ketones Negative, Urine Blood 2+, Urine Nitrate Negative, Urine Bilirubin Negative, Urine Urobilinogen 0.2, Ur Leukocyte Esterase Negative Result diagrams: 06/06/21 08:18 06/06/21 08:18 Orders (Tests/Meds): ED MEDICATIONS Generic Name Dose Route Start Last Admin Trade Name Freq PRN Reason Stop Dose Admin Sodium Chloride 1,000 mls @ 999 mls/hr 06/06/21 08:15 06/06/21 08:27 Sod Chlor 0.9% 1000ml Bag IV 06/06/21 09:15 Not Given .Q1H1M ENRIQUE Lactated Ringer's 1,000 mls @ 999 mls/hr 06/06/21 08:30 06/06/21 08:29 Lactated Ringer's 1000 Ml Bag IV 06/06/21 09:30 999 mls/hr .Q1H1M ENRIQUE Administration Discontinued Medications Generic Name Dose Route Start Last Admin Trade Name Freq PRN Reason Stop Dose Admin Ketorolac Tromethamine 30 mg 06/06/21 08:05 06/06/21 08:24 Ketorolac 30mg/Ml Vial IV 06/06/21 08:06 30 mg ONCE ONE Administration Ondansetron HCl 4 mg 06/06/21 08:05 06/06/21 08:24 Ondansetron 4mg/2ml Vial IV 06/06/21 08:06 4 mg ONCE ONE Administration ORDERS Category Date Time Status Urinalysis and Microscopic Stat Lab 06/06/21 08:54 Re
[2021-06-06 08:27] VITALS: BMI 28.7
[2021-06-06 08:31] VITALS: BP 128/82; PULSE 81; O2SAT 95
[2021-06-06 08:32] LABS: Basophils # 0.1 K/mm3 (0-0.2); Basophils % 0.7 % (0.1-2.0); Eosinophils # 0.1 K/mm3 (0.0-0.4); Eosinophils % 1.4 % (0.1-12.0); Hemoglobin 14.8 g/dL (14.1-18.0); Lymphocytes % 12.6 % (10-50); Mean Corpuscular HGB Conc 32.2 g/dL (31.8-35.4); Mean Corpuscular Hemoglobin 29.2 pg (27.0-31.2); Mean Corpuscular Volume 90.5 fl (80-94); Mean Platelet Volume 7.3 fl (7.4-10.4); Monocytes # 0.6 K/mm3 (0.1-1.0); Monocytes % 7.2 % (1.7-9.3); Neutrophils # 6.1 K/mm3 (1.8-7.8); Platelet Count 225 K/mm3 (142-424); Red Blood Count 5.08 M/mm3 (4.60-6.20); Red Cell Distribution Width 13.9 % (11.5-17.5); White Blood Count 7.9 K/mm3 (4.8-10.8)
[2021-06-06 08:40] LABS: Chloride 104 mmol/L (98-107); Potassium 4.7 mmoL/L (3.5-5.1); Sodium 134 mmol/L (136-145)
[2021-06-06 08:42] LABS: Blood Urea Nitrogen 19 mg/dl (9-20); Creatinine Clearance Estimated 92 mL/min (50-200); Estimated Glomerular Filt Rate 75 ml/min (>60); GFR (African American) 90 ML/MIN (>60)
[2021-06-06 08:43] LABS: Alanine Aminotransferase 18 U/L (12-78); Albumin Level 4.1 g/dl (3.5-5.0); Albumin/Globulin Ratio 1.4 (1.1-1.8); Alkaline Phosphatase 95 U/L (38-126); Anion Gap 7.7 mEq/L (5-15); Aspartate Amino Transferase 30 U/L (17-59); Bilirubin,Total 0.8 mg/dl (0.2-1.3); Calcium 8.4 mg/dl (8.4-10.2); Carbon Dioxide 27 mmol/L (22.0-30.0); Glucose 100 mg/dl (74-100); Total Protein,Serum 7.1 g/dl (6.3-8.2)
[2021-06-06 09:00] LABS: Microscopic, Urine URINE MICROSCOPIC (MICROSCOPIC)
[2021-06-06 09:02] LABS: Appearance,Urine CLEAR (Clear); Bilirubin,Urine Negative (Negative); Blood, Urine 2+ (Negative); Color,Urine YELLOW (Yellow); Glucose,Urine (UA) Negative (Negative); Ketones,Urine Negative (Negative); Leukocyte Esterase,Urine Negative (Negative); Nitrate,Urine Negative (Negative); PH,Urine 6.5 (5.0-8.5); Protein,Urine Negative (Negative); Urobilinogen,Urine 0.2 EU/dl (0.2)
[2021-06-06 09:14] LABS: Squamous Epithelial Cell,Urine Occasional #/hpf (0-5)
[2021-06-06 09:15] VITALS: BP 125/81; PULSE 80; RESP 18; TEMP 36.7; O2SAT 95
== END 2021-06-06 09:15 | disposition home or self-care (01) ==
PROVIDERS: Emergency Provider Emergency Medicine; PCP Family Medicine
DX: N20.0 Calculus of kidney (principal); Z87.442 Personal history of urinary calculi; J45.909 Unspecified asthma, uncomplicated; F17.210 Nicotine dependence, cigarettes, uncomplicated
CPT/HCPCS: 80053; 81001; 85025; 96365; 96375; 99284; J2405

== ENCOUNTER → 2021-06-08 10:47 | Outpatient (CLI) | payer MEDICARE, OTHER, SELFPAY | PROVIDERS: Visit Provider Urology | DX: N20.0 Calculus of kidney (principal); Z01.812 Encounter for preprocedural laboratory examination; Z11.52 Encounter for screening for COVID-19 | CPT/HCPCS: C9803; U0003; U0005 ==

== ENCOUNTER 2021-06-09 09:39 | Day surgery (SDC) | payer MEDICARE, OTHER, SELFPAY ==
[2021-06-08 11:18] VITALS: BMI 28.3
[2021-06-09] VITALS (11 sets, daily range): BP systolic 80–159; BP diastolic 52–89; PULSE 62–80; RESP 12–20; TEMP 36.2–43; O2SAT 95–98
--- NOTE | 2021-06-09 10:50 | P.PN_ITS ---
[facility] Anesthesia Checklist - Patient Identification Patient Identification: Arm Band - Structural Data Admitted From: Home Planned Operative Procedure/s: Cystoscopy with Right Ureteral Stent Placement Consent for Planned Operative Procedure(s) Verified: Yes Verified Documents: Surgical Consent, History and Physical - NPO Status Verified Time NPO: 00:00 - Additional verifications Anesthesia Reactions: No Hx Blood Transfusions: No Blood Transfusion Reaction: No - Airway Assessment C-Spine Mobility Assessed: Yes (mp2) TMJ Mobility Assessed: Yes Dentition: Good Dentition - Neurological Assessment Level of Consciousness: Awake, Alert - Anesthesia Plan Anesthesia Risk discussed: Yes Anesthesia Plan: Verified ASA Class: II Anesthesia Type: General [facility] History I have reviewed the patient's past medical history: Yes Medical History: Reports:: Asthma, Gastroesophageal Reflux Disease(GERD), Kidney Stones, MRSA (40-45 years ago) Denies:: Cancer, Diabetes Mellitus Type 1, Diabetes Mellitus Type 2, Internal Pacemaker, Seizures *Have you ever received a pneumonia vaccine?: No *Have you received a flu vaccine this season?: No Other Medical History: Denies: Blood Transfusion Reaction Anesthesia experience/problems:: nac Laterality Cases: Right: Arthroscopy Knee Other Surgeries: Yes: Colonoscopy, Colon Resection, Hernia Repair. No: Pacemaker Amputation: Yes (finger ) Fractures: No - *Social History Last grade of school completed: High school graduate Smoking Status: Current every day smoker Tobacco Type: cigarettes # Packs/Day (cigarettes): 1 Alcohol Intake: never Alcohol Intake Frequency:: holidays/special occasions only Substance Use Type: denies use *Occupational Status:: retired Housing: house Household Members: significant other *Travel in the last 8 weeks: None Family Hx:: Heart Attack
--- NOTE | 2021-06-09 11:43 | XR_ITS ---
FINAL REPORT CLINICAL HISTORY: CYSTO WITH STENT PLACEMENT IN OR FT: 1.6 FINDINGS: FLUOROSCOPY IN THE OR HISTORY: stent placement FINDINGS: Fluoroscopy was provided by the radiology department for the clinical service. 1 film wasobtained during the procedure. Fluoroscopy time: 1.6 minutess. IMPRESSION: Intraoperative fluoroscopy Reviewed, Interpreted and Dictated by Lorenzo Kelly MD Transcribed by KIM Melendez Authenticated by Lorenzo Kelly MD on 06/12/2021 09:51:57 AM [facility]
--- NOTE | 2021-06-09 11:46 | P.PN_ITS ---
[facility] Anesthesia Record Part I Intake, IV Amount: 800 Estimated blood loss (mL): 0 Urine output (mL): 0 Blood Pressure: 86/52 SaO2: 95 Pulse Rate: 62 Respiratory Rate: 16 Temperature: 97.1 F Patient is:: Drowsy, Stable Stable to PACU at:: 11:40
--- NOTE | 2021-06-09 12:00 | SUR.PHASEI ---
Pt sitting up, awake, pleasant, A&O x4. Denies pain. Currently drinking pepsi, tolerating well. No needs voiced @ this time.
--- NOTE | 2021-06-09 13:04 | HMH.OPNOTE ---
Date of procedure: 06/09/21 Pre-op Diagnosis:: Right ureteral stone Post-op Diagnosis:: Same Procedure performed:: Right stent placement, cystoscopy Surgeon:: Cory West MD SMALL ANIMAL VETERINARIAN:: Navdeep Bush Anesthesia: LMA Estimated blood loss (mL): 0 Clinical Note:: 65-year-old white male with recent right renal colic noted to have a 6 mm proximal right ureteral stone on recent CT scan. He presents today for surgical management. Operative findings:: 6 mm stone is still in the right proximal ureter. A stent was placed and we will plan on ESWL in the near future. Operative note:: Patient taken to the operating room after informed consent was obtained. He was placed on the operating table in the supine position and general anesthesia was administered. Preoperative antibiotics and sequential compression devices placed. He was placed in the dorsal lithotomy position and prepped draped in the standard surgical fashion. 22 Macanese cystoscope passed into the urethra and into the bladder without problem. The bladder was examined in a systematic fashion and there is no evidence of abnormalities. The ureteral orifices in their normal anatomic position. A 5 Macanese ureteral catheter passed into the right ureteral orifice and up to the level of the stone. The guidewire was passed through the ureteral catheter and by the stone without difficulty. The ureteral catheter was removed and a 6 x 26 Macanese stent then passed over the guidewire. The guidewire removed and a good curl was noted proximally and distally. String was left on for later removal. Urojet placed into the urethra. Patient tolerated procedure well no complications. Condition: stable Disposition: PACU Specimens:: None Complications:: None
--- NOTE | 2021-06-12 09:51 | HMH.ANESII ---
[facility] Anesthesia Record Part II Discharge Time: 12:10 Destination: Surgical Day Care (OP Surgery) PACU nurse assessment reviewed?: Yes Patient Condition:: Good Anesthesia Complications:: None Swallowing reflex intact?: Yes Cyanosis?: No Blood Pressure: 128/67 Pulse Rate: 69 Temperature: 97.5 F Mental Status: Alert & Oriented Pain level:: 0 Nausea and/or vomitting:: None Intake, IV Amount: 0
[2021-06-12 09:52] VITALS: BP 128/67; PULSE 69; TEMP 36.4
== END 2021-06-09 12:41 | disposition home or self-care (01) ==
LOC: OR 09:40
PROVIDERS: PCP Family Medicine; Visit Provider Urology
DX: N20.1 Calculus of ureter (principal); J45.909 Unspecified asthma, uncomplicated; K21.9 Gastro-esophageal reflux disease without esophagitis; Z72.0 Tobacco use
CPT/HCPCS: 52000; 74018; 76000; 96374; C2617; J2405

== ENCOUNTER → 2021-06-28 07:43 | Outpatient (CLI) | payer MEDICARE, OTHER, SELFPAY ==
--- NOTE | 2021-06-28 07:49 | XR_ITS ---
FINAL REPORT CLINICAL HISTORY: ureteral stone FINDINGS: SINGLE VIEW ABDOMEN A single view of the abdomen was obtained. A right-sided ureteral stent is present. There is a nonobstructive bowel gas pattern. There are no abnormally dilated loops of small bowel. A 3 mm stone is noted in the upper pole of the right kidney. There is no definite ureteral stone seen. There are several phleboliths in the right pelvis. IMPRESSION: Right renal stone measuring 3 mm. No ureteral stone identified. Reviewed, Interpreted and Dictated by Andrew Murillo III, MD Transcribed by Lesly Jones Authenticated by Andrew Murillo III, MD on 06/28/2021 09:19:39 AM [facility]
[2021-06-28 07:58] LABS: MANUAL DIFFERENTIAL MANUAL DIFFERENTIAL (MANUAL DIFF)
[2021-06-28 09:03] LABS: Basophils # 0.1 K/mm3 (0-0.2); Basophils % 1.1 % (0.1-2.0); Eosinophils # 0.1 K/mm3 (0.0-0.4); Eosinophils % 2.8 % (0.1-12.0); Hematocrit 44.4 % (42.0-52.0); Hemoglobin 14.5 g/dL (14.1-18.0); Lymphocytes # 1.2 K/mm3 (0.7-4.5); Lymphocytes % 24.8 % (10-50); Mean Corpuscular HGB Conc 32.6 g/dL (31.8-35.4); Mean Corpuscular Hemoglobin 28.8 pg (27.0-31.2); Mean Corpuscular Volume 88.4 fl (80-94); Mean Platelet Volume 7.3 fl (7.4-10.4); Monocytes # 0.3 K/mm3 (0.1-1.0); Monocytes % 6.4 % (1.7-9.3); Neutrophils # 3.2 K/mm3 (1.8-7.8); Platelet Count 263 K/mm3 (142-424); Red Blood Count 5.03 M/mm3 (4.60-6.20); Red Cell Distribution Width 13.9 % (11.5-17.5); White Blood Count 4.9 K/mm3 (4.8-10.8)
[2021-06-28 09:25] LABS: Anion Gap 10.6 mEq/L (5-15); Blood Urea Nitrogen 20 mg/dl (9-20); Calcium 9.2 mg/dl (8.4-10.2); Carbon Dioxide 29 mmol/L (22.0-30.0); Chloride 104 mmol/L (98-107); Estimated Glomerular Filt Rate 75 ml/min (>60); GFR (African American) 90 ML/MIN (>60); Glucose 93 mg/dl (74-100); Potassium 4.6 mmoL/L (3.5-5.1); Sodium 139 mmol/L (136-145)
[2021-06-28 17:00] LABS: Eosinophils % 2 % (0-3); Lymphocytes % 27 % (10-50); Monocytes % 2 % (2-9); Neutrophils % 68 % (42-76); Platelet Estimate Normal; RBC Morphology Normal; Total Cells Counted 100
== END ==
PROVIDERS: PCP Family Medicine; Visit Provider Urology
DX: N20.1 Calculus of ureter (principal); Z01.812 Encounter for preprocedural laboratory examination; Z11.52 Encounter for screening for COVID-19
CPT/HCPCS: 36415; 74018; 80048; 85007; 85014; 85018; 85048; 85049; C9803; U0003; U0005

== ENCOUNTER 2021-06-30 12:13 | Day surgery (SDC) | payer MEDICARE, OTHER, SELFPAY ==
[2021-06-28 10:16] VITALS: BMI 27.9
[2021-06-30] VITALS (10 sets, daily range): BP systolic 117–157; BP diastolic 75–94; PULSE 54–100; RESP 16–20; TEMP 36.1–43; O2SAT 93–97
--- NOTE | 2021-06-30 12:30 | XR_ITS ---
FINAL REPORT CLINICAL HISTORY: ureteral stone, preop COMPARISON: June 28, 2021 FINDINGS: SINGLE VIEW ABDOMEN A single view of the abdomen was obtained. There is a nonobstructive bowel gas pattern. There are no abnormally dilated loops of small bowel. There is a right ureteral stent. There is a probable 4 mm right renal stone. There is a questionable small lower pole left renal stone measuring 3 mm. There are phleboliths in the pelvis. IMPRESSION: 4 mm right renal stone with questionable 3 mm left renal stone. Reviewed, Interpreted and Dictated by Andrew Murillo III, MD Transcribed by Rahul Contreras Authenticated by Andrew Murillo III, MD on 06/30/2021 12:56:27 PM [facility]
--- NOTE | 2021-06-30 12:48 | HMH.ANESCL ---
[facility] Anesthesia Checklist - Patient Identification Patient Identification: Arm Band, Verbal (Name & ) - Structural Data Admitted From: Home Planned Operative Procedure/s: ESWL Consent for Planned Operative Procedure(s) Verified: Yes Verified Documents: Surgical Consent - NPO Status Verified Time NPO: 00:00 - Additional verifications Anesthesia Reactions: No Hx Blood Transfusions: No Blood Transfusion Reaction: No - Airway Assessment C-Spine Mobility Assessed: Yes TMJ Mobility Assessed: Yes - Neurological Assessment Level of Consciousness: Awake, Alert, Appropriate - Anesthesia Plan Anesthesia Risk discussed: Yes ASA Class: II Anesthesia Type: General [facility] History I have reviewed the patient's past medical history: Yes Medical History: Reports:: Asthma, Gastroesophageal Reflux Disease(GERD), Kidney Stones Denies:: Cancer, Diabetes Mellitus Type 1, Diabetes Mellitus Type 2, Internal Pacemaker, MRSA, Seizures *Have you ever received a pneumonia vaccine?: No *Have you received a flu vaccine this season?: No Other Medical History: Denies: Blood Transfusion Reaction Anesthesia experience/problems:: none Laterality Cases: Right: Arthroscopy Knee Other Surgeries: Yes: No Previous Surgery, Colonoscopy, Colon Resection, Hernia Repair. No: Pacemaker Amputation: Yes (finger ) Fractures: No - *Social History Last grade of school completed: High school graduate Smoking Status: Current every day smoker Tobacco Type: cigarettes # Packs/Day (cigarettes): 1 Alcohol Intake: never Alcohol Intake Frequency:: holidays/special occasions only Substance Use Type: denies use *Occupational Status:: retired Housing: house Household Members: significant other *Travel in the last 8 weeks: None Family Hx:: Coronary Artery Disease, Heart Attack, Hyperlipidemia, Hypertension
--- NOTE | 2021-06-30 13:02 | HMH.ANESI ---
[facility] Anesthesia Record Part I Intake, IV Amount: 700 Estimated blood loss (mL): 0 Urine output (mL): 0 Blood Pressure: 145/94 SaO2: 93 Pulse Rate: 100 Respiratory Rate: 20 Temperature: 98.3 F Patient is:: Drowsy Stable to PACU at:: 13:01
--- NOTE | 2021-06-30 14:24 | P.PN_ITS ---
[facility] Anesthesia Record Part I Intake, IV Amount: 600 Estimated blood loss (mL): 0 Urine output (mL): 0 Blood Products used (#): none Blood Pressure: 152/87 SaO2: 97 Pulse Rate: 85 Respiratory Rate: 16 Temperature: 97.4 F Patient is:: Drowsy Stable to PACU at:: 14:24
--- NOTE | 2021-06-30 14:28 | HMH.OPNOTE ---
Date of procedure: 06/30/21 Pre-op Diagnosis:: Right kidney stone, right ureteral stone Post-op Diagnosis:: Right kidney stone, no evidence of a ureteral stone Procedure performed:: Right ESWL, right ureteroscopy, right stent removal Surgeon:: Cory West MD LINE MECHANIC:: Other (masoud s) Anesthesia: LMA Estimated blood loss (mL): 0 Clinical Note:: Patient is a 65-year-old white male with recent right renal colic. CT scan had shown a 6 mm proximal ureteral stone with obstruction as well as a right upper pole stone. Patient was taken to the operating room where a right stent was placed. The stone could not be manipulated into the right renal pelvis at that time. He presents today for ESWL. Preoperative KUB. Show calcification in the distal ureter as well as the stone in the right upper pole. Operative findings:: Right ureteroscopy revealed no stones in the course of the ureter. The right upper pole stone was treated with ESWL. Right ureteral stent that was previously placed was removed today. Operative note:: Patient taken to the operating room after informed consent was obtained. He was placed on the operating table in the supine position. General anesthesia was administered. Preoperative antibiotics and sequential compression devices placed. Patient then placed into the dorsal lithotomy position and prepped and draped in the standard surgical fashion. The string on the right ureteral stent was used to pull the stent out to the urethral meatus. A guidewire then passed through the lumen of the ureteral stent and into the right renal pelvis. This was noted on fluoroscopy. Our semirigid ureteroscope was then passed into the urethra and into the bladder and into the right ureter. Scope was passed up to the a calcification in the distal ureter noted on KUB but there was no evidence of stones in the ureter. We passed the scope up to the right renal pelvis without evidence of a stone. We then removed the ureteroscope and into the bladder. Urojet placed into the urethra and patient placed in the supine position. He was positioned so that F2 of the lithotripter was focused onto the right upper pole stone and 3000 shockwaves delivered to the stone fragmentation. Patient tolerated the procedure well. Condition: stable Disposition: PACU Specimens:: Right ureteral stent Complications:: None
[2021-07-03 07:12] VITALS: BP 147/86; PULSE 81; TEMP 36.6
--- NOTE | 2021-07-03 07:12 | HMH.ANESII ---
[facility] Anesthesia Record Part II Discharge Time: 14:44 Destination: home PACU nurse assessment reviewed?: Yes Patient Condition:: Good Anesthesia Complications:: None Swallowing reflex intact?: Yes Cyanosis?: No Blood Pressure: 147/86 Pulse Rate: 81 Temperature: 97.8 F Mental Status: Alert & Oriented Pain level:: 0 Nausea and/or vomitting:: None Intake, IV Amount: 0
== END 2021-06-30 15:17 | disposition home or self-care (01) ==
PROVIDERS: PCP Family Medicine; Visit Provider Urology
DX: N20.0 Calculus of kidney (principal); J45.909 Unspecified asthma, uncomplicated; K21.9 Gastro-esophageal reflux disease without esophagitis; Z72.0 Tobacco use; Z82.3 Family history of stroke; Z82.49 Family history of ischemic heart disease and other diseases of the circulatory system; Z83.438 Family history of other disorder of lipoprotein metabolism and other lipidemia; Z88.6 Allergy status to analgesic agent
CPT/HCPCS: 50386; 50590; 74018; J2405

== ENCOUNTER → 2022-03-06 06:13 | Outpatient (CLI) | payer MEDICARE, OTHER, SELFPAY ==
--- NOTE | 2022-03-06 | CA_ITS ---
APPROVED REPORT Exam: Exercise Treadmill Technologist: Dena Mcbride Ht: 5 ft 10 in Wt: 200 lbs BSA: 2.09 m2 HR: 66 bpm BP: 140/78 mmHg Indications: Chest pain Medical History Medications: No home meds,,,,, Stress Test Details Test: [place] HR Resting HR: 71 bpm Max Heart Rate (APMHR): 152.084280 bpm Max HR Achieved: 122 bpm Target HR (85% APMHR): 129.860299 bpm % of APMHR: 80.26 Recovery HR: 71 bpm BP Resting BP: 140.0/78.0 mmHg Max BP: 187.0/94.0 mmHg Recovery BP: 147.0/89.0 mmHg ECG Resting ECG: Normal sinus rhythm, incomplete right bundle branch block, left axis deviation. Clinical Exercise duration: 06:00 min Highest Stage Achieved: Exercise capacity: 7.0 METs Stress ECG Conclusion Patient exercised 6:00 on [place] Protocol, completing stage II. Test stopped due to chest pain, shortness of air. Symptoms: Chest pain consistent with classic exertional angina. Arrhythmias/Ectopy: Occasional PVC. ST-T Changes: 0.75 - 1 mm of slightly upsloping ST depression laterally. Conclusion: Classic Angina with equivocal EKG changes for ischemia to heart rate acheived (80% of PM). Myoview images reported separately. Test Summary REST . . . . . . . Sitting REST . . . . . . . Standing REST 05:15 0.0 0.0 71 . 140/ 78 . . Stage 1 01:00 10.0 1.7 90 . . . . Stage 1 02:00 10.0 1.7 97 . . . . Stage 1 03:00 10.0 1.7 97 . 150/ 76 . . Stage 2 . . . . . . . Chest pain Stage 2 01:00 12.0 2.5 109 . . . . Stage 2 . . . . . . . Myoview Injected Stage 2 02:00 12.0 2.5 115 . . . . Stage 2 03:00 12.0 2.5 122 . . . Stop exercise at 06:00 RECOVERY 01:00 0.0 0.0 95 . . . . RECOVERY 02:00 0.0 0.0 76 . . . . RECOVERY 03:00 0.0 0.0 84 . 187/ 94 . . RECOVERY 04:00 0.0 0.0 73 . 187/ 94 . . RECOVERY 05:00 0.0 0.0 71 . 165/ 91 . . RECOVERY 05:59 0.0 0.0 74 . 147/ 89 . . Electronically signed by : Rogers Ferrer MD 03/07/2022 06:12:37
--- NOTE | 2022-03-06 06:31 | NM_ITS ---
APPROVED REPORT Exam: Nuclear Stress Test Indication: Chest pain, Tobacco use, Family history Patient Location: Outpatient Stress Tech: Dena Mcbride NM Tech:Ethel Genao, ARRT, RT (R)(N) Ht: 5 ft 9 in Wt: 200 lbs HR: 71 bpm BP: 140/78 mmHg BSA: 2.07 m2 TID: 1.22 BMI: 29.5 History: Chest pain, Tobacco use, Family history Procedure: Patient exercised on [place] protocol 6:00 minutes and sec, resting heart rate 71 bpm, resting blood pressure 140/78 mmHg, with exercise maximum heart rate achived was 122 bpm which is 80 % of the maximum predicted heart rate and blood pressure was 187/94 mmHg. Test was stopped due to chest pain and SOB. Patient has Adequate exercise capacity, achieved 7.0 METs of workload on treadmill, the blood pressure response to exercise was Adequate. Electrocardiogram Resting electrocardiogram showed sinus rhythm right ventricular conduction delay, with exercise there is [address] segment depressions noted from the baseline EKG. The EKG portion of the exercise Myoview is positive for ischemia. Cardiac Stress and Resting SPECT Images: Cardiac Stress and Resting SPECT images were obtained using technetium 99m Myoview 31.2 mCi stress and 10.01 mCi at rest. Gated SPECT for analysis of segmental wall motion and calculation of the ejection fraction also done. Prone images were also obtained. Cardiac stress and resting SPECT images show reversible ischemia involving the anterior, apex, anteroseptal and septal wall, there is transient ischemic dilatation of the left ventricle seen, computer derived ejection fraction is 45% with mild anteroseptal wall hypokinesis. Right ventricle is normal size and contractility. Conclusion: 1. The EKG portion of the exercise Myoview is positive for ischemia. Patient has adequate exercise capacity 7 METS of workload on treadmill, the blood pressure response to exercise was adequate, patient complained of chest discomfort with exercise which was relieved with rest. 2. Scintigraphic evidence of reversible ischemia involving the apex, anterior, anteroseptal and septal wall, computer derived ejection fraction is 45% with segmental wall motion abnormality described above, there is transient ischemic dilatation of the left ventricle seen, right ventricle is normal size and contractility. 3. Abnormal exercise Myoview study. Electronically signed by : Rogers Ferrer MD 03/07/2022 06:20:02
== END ==
PROVIDERS: PCP Family Medicine; Visit Provider Family Medicine
DX: R07.9 Chest pain, unspecified (principal)
CPT/HCPCS: 78452; 93017; A9502

== ENCOUNTER → 2022-03-14 07:58 | Outpatient (CLI) | payer MEDICARE, OTHER, SELFPAY ==
--- NOTE | 2022-03-14 07:59 | CA_ITS ---
APPROVED REPORT EXAM: Comprehensive 2D, Doppler, and color-flow Echocardiogram Forensic Psychiatrist: Rocio Heard RVT Ht: 5 ft 8 in Wt: 205lbs BSA: 2.07 BP: 144/85 mmHg Indications: LV DYSFUNCTION,ABN EKG,SMOKER,CP,CM SEEN ON NUCLEAR STRESS TEST TDS 2D Dimensions LVOT 2.44 cm (M/F) 1.5-2.5 LA Volume 22.20 mL LA Volume Index 10.72 mL/m2 (M/F) 16-34 M-Mode Dimensions RVDd 2.37 cm (0.9-2.6) LA Diam 3.15 cm (1.9-4.0) LVDd 5.67 cm (3.5-5.7) Ao Diam 3.27 cm (2.0-3.7) LVDs 4.30 cm (3.5-5.7) IVSd 0.60 cm (0.6-1.1) PWd 0.84 cm (0.6-1.1) EF (Teich) 47.40% FS 24.20% EDV (Teich) 158.10 mL TAPSE 2.26 (<1.7) ESV (Teich) 83.10 mL LV Diastology E Decel Time 267.00 (160-240 msec) E/A Ratio 0.7 MED E' 6.80 (< 7 cm/sec) E'/MED E' Ratio 8.00 (>14) LAT E' 9.10 (<10 cm/sec) E/LAT E' Ratio 5.98 (>14) Aortic Valve AO Peak GR. 8.30 mmHg Mitral Valve MV E Max Lucian. 54.00 (40-130 cm/s) MV A Velocity 81.00 (40-130 cm/s) E/A Ratio 0.67 MV Decel. Time 267.00 (160-240 ms) MV PHT 78.00 ms Pulmonary Valve PV Peak Velocity 53.00 (50-150 cm/s) Tricuspid Valve TR P. Velocity 198.00 cm/s RAP Estimate 10.00 mmHg RVSP 25.70 mmHg Left Ventricle Left atrium is mildly enlarged, left ventricle is normal size mild concentric left ventricular hypertrophy, borderline left ventricular systolic function, estimated ejection fraction 50% with no obvious regional wall motion abnormality, grade 1 diastolic dysfunction seen without tissue Doppler evidence of raise left atrial pressure. Right Ventricle Right atrium and right ventricle are mildly enlarged with normal contractility. Aortic Valve Aortic valve is minimally thickened and fibrosed there is no aortic stenosis or aortic insufficiency. Mitral Valve Mitral valve is grossly normal, there is trace mitral regurgitation. Tricuspid Valve Tricuspid grossly normal, there is trace tricuspid regurgitation, tricuspid regurgitation jet velocity is inadequate for calculation of the right ventricular systolic pressure. Pulmonic Valve Pulmonic valve is poorly visualized. Great Vessels Aortic root is normal size. Inferior vena cava is mildly dilated with less than 50% inspiratory collapse. Pericardium No significant pericardial effusion noted. Conclusion 1. Mild biatrial enlargement, normal left ventricular size, mild concentric left ventricular hypertrophy, borderline left ventricular systolic function, estimated ejection fraction 50% with no obvious regional wall motion abnormality, grade 1 diastolic dysfunction seen without tissue Doppler evidence of reduced left atrial pressure. 2. Mildly enlarged right ventricle with normal contractility. 3. Trace mitral and tricuspid regurgitation. 4. No significant pericardial effusion noted. 5. Inferior vena cava is mildly dilated with less than 50% inspiratory collapse. Electronically signed by : Rogesr Ferrer MD 03/15/2022 06:21:32
== END ==
PROVIDERS: PCP Family Medicine; Visit Provider Nurse Practitioner Family
DX: I51.9 Heart disease, unspecified (principal)
CPT/HCPCS: 93306

== ENCOUNTER 2022-03-19 08:50 | Day surgery (SDC) | payer MEDICARE, OTHER, SELFPAY ==
[2022-03-19] VITALS (13 sets, daily range): BP systolic 103–129; BP diastolic 60–83; PULSE 56–96; RESP 18–24; TEMP 36.9; O2SAT 92–95; BMI 31.1
--- NOTE | 2022-03-19 07:12 | IR_ITS ---
APPROVED REPORT Patient Location: Outpatient PROCEDURES Left heart catheterization Left ventriculogram Selective coronary angiogram Drug-eluting stent deployment to the proximal LAD INDICATION High risk abnormal Myoview anterior ischemia, Reduced ejection fraction, Coronary artery disease Informed consent was obtained prior to the procedure. COMPLICATIONS None Estimated Blood Loss: Less than 10 ML TECHNIQUE One percent lidocaine used to anesthetize the right anterior aspect of the wrist. The right radial artery was accessed via the Seldinger technique. A 6 Uzbek sheath was placed in the right radial artery. 2.5 mg of verapamil, 800 mcg of nitroglycerin, 1mg Lidocaine and 5000 U Heparin were given through the arterial sheath. The papa catheter was also used to perform selective coronary angiogram. At the end of the procedure therapeutic heparin was administered giving a therapeutic ACT and the guide catheter was placed on left main artery followed by a Choice PT extra-support wire. A 4 mm x 15 mm resolute Granby stent was deployed at 20 theresa reducing the critical stenosis to 0%. KENNY-3 flow was present before and after the procedure. At the end of the procedure the apparatus was removed the sheath was removed and hemostasis was achieved using TR banding patient was transferred to the postop putting in stable condition ANGIOGRAPHIC RESULTS The left main artery Normal The left anterior descending artery Has a proximal critical concentric 90% stenosis with diffuse mild luminal irregularities throughout the LAD. The first diagonal artery has a proximal 40 followed by mid vessel 60% stenosis The circumflex artery Is a nondominant yet still large vessel which has 30% stenosis and a large first obtuse marginal artery with 20% stenoses in the second obtuse marginal artery The right coronary artery Is a large dominant vessel with an ostial 30 to 40% stenosis and mid vessel 20% stenoses with distal 10 to 20% stenosis The HANNAH ventriculogram reveals Not performed The left ventricular end-diastolic pressure Not measured IMPRESSION Critical proximal LAD disease as described above Successful stenting of the proximal LAD critical disease reduced to 0% with 1 drug-eluting stent PLAN 1. Brilinta 90 twice daily plus aspirin 81 mg daily 2. LDL less than 55 to be achieved with high intensity statin 3. Standard therapy for ischemic heart disease which should include beta-blockers and ANGELES inhibitor 4. Avoidance of tobacco products 5. Cardiac rehabilitation Electronically signed by : Hill Kimball MD 03/19/2022 11:32:37
[2022-03-19 10:07] LABS: Basophils # 0.1 K/mm3 (0-0.2); Eosinophils # 0.2 K/mm3 (0.0-0.4); Eosinophils % 3.8 % (0.1-12.0); Hematocrit 47.9 % (42.0-52.0); Hemoglobin 15.3 g/dL (14.1-18.0); Lymphocytes # 1.5 K/mm3 (0.7-4.5); Lymphocytes % 27.3 % (10-50); Mean Corpuscular HGB Conc 31.9 g/dL (31.8-35.4); Mean Corpuscular Hemoglobin 28.4 pg (27.0-31.2); Mean Corpuscular Volume 89.2 fl (80-94); Mean Platelet Volume 7.7 fl (7.4-10.4); Monocytes # 0.3 K/mm3 (0.1-1.0); Monocytes % 6.2 % (1.7-9.3); Neutrophils # 3.3 K/mm3 (1.8-7.8); Neutrophils % 61.6 % (37.0-80.0); Platelet Count 222 K/mm3 (142-424); Red Blood Count 5.37 M/mm3 (4.60-6.20); Red Cell Distribution Width 13.9 % (11.5-17.5); White Blood Count 5.3 K/mm3 (4.8-10.8)
[2022-03-19 10:10] LABS: Chloride 106 mmol/L (98-107); Sodium 141 mmol/L (136-145)
[2022-03-19 10:11] LABS: Potassium 4.7 mmoL/L (3.5-5.1)
[2022-03-19 10:13] LABS: Alanine Aminotransferase 19 U/L (12-78); Albumin Level 4.3 g/dl (3.5-5.0); Alkaline Phosphatase 85 U/L (38-126); Anion Gap 9.7 mEq/L (5-15); Aspartate Amino Transferase 30 U/L (17-59); Bilirubin,Direct 0.1 mg/dl (0.0-0.4); Bilirubin,Indirect 0.6 mg/dL (0.0-0.9); Bilirubin,Total 0.7 mg/dl (0.2-1.3); Bilirubin,Unconjugated 0.6 mg/dL (0.0-1.1); Blood Urea Nitrogen 15 mg/dl (9-20); Calcium 8.8 mg/dl (8.4-10.2); Carbon Dioxide 30 mmol/L (22.0-30.0); Cholesterol 112 mg/dl (140-200); Creatinine Clearance Estimated 93 mL/min (50-200); Estimated Glomerular Filt Rate 84 ml/min (>60); GFR (African American) 102 ML/MIN (>60); Glucose 97 mg/dl (74-100); Total Protein,Serum 7.3 g/dl (6.3-8.2); Triglycerides 62 mg/dl (30-150); VLDL Cholesterol 12 mg/dL (0-40)
[2022-03-19 10:14] LABS: Chol/HDL Ratio 3.2 (1-3.5); HDL Cholesterol 35 mg/dl (40-60)
[2022-03-19 10:25] LABS: Direct LDL Cholesterol 58.81 mg/dL (100-129)
--- NOTE | 2022-03-19 13:52 | HMH.PHACL ---
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
[2022-03-19 15:08] LABS: CATHL Activated Clotting Time 322 SEC (74-125)
== END 2022-03-19 15:23 | disposition home or self-care (01) ==
PROVIDERS: Nurse Practitioner Family; PCP Family Medicine; Visit Provider Internal Medicine
DX: R07.9 Chest pain, unspecified; R94.30 Abnormal result of cardiovascular function study, unspecified; R94.31 Abnormal electrocardiogram [ECG] [EKG]; I25.118 Atherosclerotic heart disease of native coronary artery with other forms of angina pectoris; F17.210 Nicotine dependence, cigarettes, uncomplicated; I42.9 Cardiomyopathy, unspecified
CPT/HCPCS: 36415; 80048; 80061; 80076; 83735; 85025; 85347; 92928; 93454; 99152; C1725; C1769; C1876; C9600; J1644; Q9967

== ENCOUNTER 2022-04-09 07:11 | Emergency (ER) | payer MEDICARE, OTHER, SELFPAY ==
[2022-04-09 07:12] VITALS: BP 159/92; PULSE 88; RESP 18; TEMP 36.7; O2SAT 100; BMI 31.1
[2022-04-09 07:20] VITALS: BMI 31.1
--- NOTE | 2022-04-09 07:21 | XR_ITS ---
FINAL REPORT CLINICAL HISTORY: right knee pain and swelling FINDINGS: 3 views of the right knee were obtained. There is no acute fracture or dislocation. There are moderate and severe degenerative changes. A large joint effusion is present. There is chronic appearing irregularity of the fibular head that may represent sequela of prior injury. IMPRESSION: Degenerative changes with a large joint effusion. Reviewed, Interpreted and Dictated by Andrew Murillo III, MD Transcribed by Rahul Contreras Authenticated and [facility]
--- NOTE | 2022-04-09 07:25 | PC.NURSE ---
DR MORGAN AT BEDSIDE
[2022-04-09 07:30] VITALS: BP 124/84; PULSE 85; O2SAT 95
--- NOTE | 2022-04-09 07:32 | PC.NURSE ---
PT TO XR AT THIS TIME
--- NOTE | 2022-04-09 07:37 | PC.NURSE ---
PT RETURNED FROM XR
--- NOTE | 2022-04-09 07:48 | HMH.EDGENADL ---
Discharge Plan Disposition Patient Disposition: Home, Self-Care Prescriptions Prescriptions: New prednisone [prednisone] 20 mg tablet 20 mg PO DAILY Qty: 10 0RF No Action aspirin 81 mg tablet 81 mg PO DAILY atorvastatin [Lipitor] 40 mg tablet 40 mg PO DAILY Qty: 90 3RF Entresto 24-26 mg tablet 1 tab PO BID Qty: 180 3RF Brilinta 90 mg tablet 90 mg PO Q12H Referrals Follow up/Referrals: Jose Daniel Monreal MD [Primary Care Provider] - See instructions Clinical Impressions Clinical Impression: Acute knee pain, DJD (degenerative joint disease) of knee Instructions Patient Instructions: DI for Knee Effusion, DI for Knee Pain Discharge ED Provider: Ashwin (ED)Marcio General Adult HPI General Chief complaint: PAIN Stated complaint: right leg pain, no accident Time Seen by Provider: 04/09/22 07:20 Mode of Arrival: Wheelchair Source of Information: Patient and Medical Record Limitations: No Limitations Description of Symptoms (Recalled from ER Triage Doc. by RN): PT C/O RIGHT KNEE PAIN AND SWELLING SINCE Saturday. History of Present Illness HPI narrative: atraumatic rt knee pain with swelling and pain with mov over the last few days Onset (ago): day(s) Location: lower extremity Severity: moderate Consistency: intermittent Associated symptoms: denies other symptoms Related Data Home Medications Medication Instructions Recorded Confirmed aspirin 81 mg tablet 81 mg PO DAILY . 03/12/22 04/09/22 ticagrelor 90 mg tablet (Brilinta) 90 mg PO Q12H Blood thinner 04/09/22 04/09/22 Previous Rx's Medication Instructions Recorded atorvastatin 40 mg tablet (Lipitor) 40 mg PO DAILY . #90 tabs 03/28/22 sacubitril 24 mg-valsartan 26 mg 1 tab PO BID . #180 tabs 03/29/22 tablet (Entresto) prednisone 20 mg tablet 20 mg PO DAILY #10 tabs 04/09/22 Allergies Allergy/AdvReac Type Severity Reaction Status Date / Time codeine [CODEINE] AdvReac Unknown Verified 03/28/22 14:22 [facility] Disclaimer: The information contained in this section may have been updated after the patient was seen, as this information can be updated by other users. Medical History (Updated 04/09/22 @ 08:05 by Marcio Christopher (ED)MD) Abnormal electrocardiogram [ECG] [EKG] Abnormal result of cardiovascular function study Cardiomyopathy Chest pain Coronary artery disease LV dysfunction Tobacco user Typical angina Surgical History (Updated 03/28/22 @ 14:50 by Molly Suggs, RN) History of colon resection History of right coronary artery stent placement Family History (Updated 04/09/22 @ 07:56 by Claudia Christie, GABE) Other No significant family history Social History Smoking Status: Current every day smoker tobacco type: cigarettes packs per day: 1 second hand exposure: Yes alcohol intake: never substance use type: denies use current occupational status: retired Travel in the last 8 weeks: None household members: significant other housing: house current occupational exposures/hazards: No caffeine: Yes ROS Obtained: Yes All systems reviewed & no additional complaints except as documented Physical Exam General General appearance: alert Head Head exam: normocephalic Eye Eye exam: Present PERRL and EOMI ENT ENT exam: Present mucous membranes moist Neck Neck exam: Present trachea midline Respiratory Respiratory exam: Absent respiratory distress Cardiovascular Cardiovascular exam: Present regular rate Expanded Lower Extremity Exam Right: Hip/Pelvis exam: Present pelvis stable Knee exam: Present tenderness, swelling, effusion and knee extension intact; Absent full ROM or erythema Neurovascular/Tendon exam: Absent motor deficit Neurological Exam Neurological exam: Present alert, oriented X3 and CN II-XII intact Psychiatric Psychiatric exam: Present normal affect Skin Skin exam:
--- NOTE | 2022-04-09 08:03 | PC.NURSE ---
ORTHO APPT MADE FOR 04/10/22 AT 0930
--- NOTE | 2022-04-09 08:28 | PC.NURSE ---
pt given ice pack
[2022-04-09 08:43] VITALS: BP 134/85; PULSE 82; RESP 17; TEMP 36.7; O2SAT 95
== END 2022-04-09 09:00 | disposition home or self-care (01) ==
PROVIDERS: Emergency Provider Emergency Medicine; PCP Family Medicine
DX: M17.11 Unilateral primary osteoarthritis, right knee (principal); I42.9 Cardiomyopathy, unspecified; I25.10 Atherosclerotic heart disease of native coronary artery without angina pectoris; F17.210 Nicotine dependence, cigarettes, uncomplicated; Z86.79 Personal history of other diseases of the circulatory system; Z90.49 Acquired absence of other specified parts of digestive tract
CPT/HCPCS: 73562; 96372; 99283; 99284

== ENCOUNTER → 2022-12-11 08:09 | Outpatient (CLI) | payer MEDICARE, OTHER, SELFPAY ==
--- NOTE | 2022-12-11 | CA_ITS ---
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 2D Dimensions IVSd 0.72 cm M: 0.6-1.2 LVEF (Visual) 58.70 % PWd 0.83 cm M: 0.6 - 1.2 LA Volume 44.80 mL LVDd 5.27 cm M: 4.2 - 5.9 LA Volume Index 21.85 mL/m2 (M/F) 16-34 LVDs 3.62 cm M: 2.5 - 4.0 Aortic Root 3.31 cm M: 3.1 - 3.7 Left Atrium 3.05 cm M: 3.0 - 4.0 LVOT 2.10 cm (M/F) 1.5-2.5 M-Mode Dimensions RVDd 2.41 cm (0.9-2.6) LA Diam 3.31 cm (1.9-4.0) LVDd 5.50 cm (3.5-5.7) Ao Diam 3.35 cm (2.0-3.7) LVDs 4.39 cm (3.5-5.7) IVSd 0.84 cm (0.6-1.1) PWd 0.89 cm (0.6-1.1) EF (Teich) 49.90% EPSs 0.81 cm FS 25.70% EDV (Teich) 173.90 mL TAPSE 2.25 (<1.7) ESV (Teich) 87.20 mL LV Diastology E Decel Time 347.00 (160-240 msec) E/A Ratio 1.06 MED E' 7.30 (< 7 cm/sec) MED A' 10.00 cm/s E'/MED E' Ratio 7.25 (>14) LAT E' 8.70 (<10 cm/sec) LAT A' 12.60 cm/s E/LAT E' Ratio 6.08 (>14) Aortic Valve LVOT Max 84.00 (70-110 cm/s) LVOT VTI 18.44 cm AoV Peak Lucian. 164.00 (50-130 cm/s) AI PHT 402.00 ms AO Peak GR. 10.70 mmHg AO Mean GR. 5.30 (<5 mmHg) AO VTI 33.94 (18-25 cm) EBONY (VTI) 1.88 (2.5-4.5 cm2) Mitral Valve MV A Velocity 50.00 (40-130 cm/s) E/A Ratio 1.06 MV Decel. Time 347.00 (160-240 ms) Pulmonary Valve PV Peak Velocity 66.00 (50-150 cm/s) Tricuspid Valve TR P. Velocity 255.00 cm/s RAP Estimate 10.00 mmHg RVSP 36.10 mmHg Left Ventricle The left ventricle is normal size. The left ventricular systolic function is low-normal. The left ventricular ejection fraction is within the low-normal range. There is normal left ventricular wall thickness. There is normal LV segmental wall motion. The left ventricular diastolic function is normal. LVEF is 50%. Right Ventricle The right ventricle is mildly to moderately dilated. Right ventricle is mildly hypokinetic. Atria The left atrium size is mildly dilated The right atrium is moderately dilated. There is no Doppler evidence of interatrial shunt. Aortic Valve The aortic valve is mildly thickened, cannot rule out bicuspid aortic valve. There is no aortic valvular stenosis. Mild aortic regurgitation. Mitral Valve The mitral valve is normal in structure. No evidence of mitral valve stenosis. Trace mitral regurgitation. Tricuspid Valve The tricuspid valve leaflets are thin and pliable. Mild tricuspid regurgitation. RVSP is 20-25 mmHg. Pulmonic Valve The pulmonary valve is normal in structure. Trace pulmonic regurgitation. Great Vessels The aortic root is normal in size. The ascending aorta is normal in size. IVC is normal in size and collapses >50% with inspiration. Pericardium There is no pericardial effusion. Other Information Study Quality: Fair Conclusion Low-normal LV systolic function. Mild to moderate RV dilation with mild reduction in RV systolic function. Biatrial dilatation. The aortic valve is mildly thickened, cannot rule out bicuspid aortic valve. Mild AI, mild TR. Electronically signed by : Sandy West MD 12/12/2022 14:12:57
== END ==
PROVIDERS: PCP Family Medicine; Visit Provider Family Medicine
DX: I50.9 Heart failure, unspecified (principal); I25.10 Atherosclerotic heart disease of native coronary artery without angina pectoris; Z72.0 Tobacco use
CPT/HCPCS: 93306

== ENCOUNTER 2023-02-23 02:45 | Emergency (ER) | payer MEDICARE, OTHER, SELFPAY ==
[2023-02-23] VITALS (8 sets, daily range): BP systolic 111–152; BP diastolic 73–88; PULSE 63–85; RESP 16–20; TEMP 36.6; O2SAT 93–96; BMI 30.4
--- NOTE | 2023-02-23 02:49 | CT_ITS ---
PROCEDURE INFORMATION: Exam: CT Abdomen And Pelvis Without Contrast Exam date and time: 02/23/2023 3:09 AM Age: 67 years old Clinical indication: Other: Flank pain; Additional info: Flank pain, h/o kidney stones TECHNIQUE: Imaging protocol: Computed tomography of the abdomen and pelvis without contrast. Radiation optimization: All CT scans at this facility use at least one of these dose optimization techniques: automated exposure control; mA and/or kV adjustment per patient size (includes targeted exams where dose is matched to clinical indication); or iterative reconstruction. COMPARISON: CT ABDOMEN PELVIS WO CON 06/05/2021 5:59 AM FINDINGS: Coronary arteries: Coronary atherosclerosis. Liver: Normal. No mass. Gallbladder and bile ducts: Normal. No calcified stones. No ductal dilation. Pancreas: Normal. No ductal dilation. Spleen: Normal. No splenomegaly. Adrenal glands: Normal. No mass. Kidneys and ureters: Small 3 mm stone seen in the right renal collecting system no hydronephrosis hydroureter or urolithiasis noted. There is a 5 mm stone at the left UVJ with mild to moderate left-sided hydronephrosis and hydroureter. Stomach and bowel: Prior right hemicolectomy. Appendix: No evidence of appendicitis. Intraperitoneal space: Unremarkable. No free air. No significant fluid collection. Vasculature: Unremarkable. No abdominal aortic aneurysm. Lymph nodes: Unremarkable. No enlarged lymph nodes. Urinary bladder: Unremarkable as visualized. Reproductive: Unremarkable as visualized. Bones/joints: Unremarkable. No acute fracture. Soft tissues: Unremarkable. IMPRESSION: 1. 5 mm stone at the left UVJ with mild to moderate left-sided hydronephrosis and hydroureter. 2. Nonobstructing right-sided nephrolithiasis. 3. Coronary atherosclerosis. 4. Prior right hemicolectomy.
[2023-02-23] MEDS: ACETAMINOPHEN 1,000MG/100ML VIAL 1000 MG IV (03:01)
[2023-02-23] MEDS: LACTATED RINGERS 1000ML 1,000 ML 999 ML IV (03:01)
[2023-02-23] MEDS: KETOROLAC 30MG/ML VIAL 15 MG IV (03:07)
[2023-02-23 03:08] LABS: Chloride 104 mmol/L (98-107); Potassium 4.3 mmoL/L (3.5-5.1); Sodium 139 mmol/L (136-145)
--- NOTE | 2023-02-23 03:08 | PC.NURSE ---
patient to RAD for CT at this time.
[2023-02-23 03:10] LABS: Alanine Aminotransferase 28 U/L (12-78); Aspartate Amino Transferase 40 U/L (17-59); Blood Urea Nitrogen 25 mg/dl (9-20); Creatinine Clearance Estimated 89 mL/min (50-200); Estimated Glomerular Filt Rate 74 ml/min (>60); GFR (African American) 90 ML/MIN (>60)
[2023-02-23 03:11] LABS: Albumin Level 4.5 g/dl (3.5-5.0); Albumin/Globulin Ratio 1.5 (1.1-1.8); Alkaline Phosphatase 92 U/L (38-126); Anion Gap 12.3 mEq/L (5-15); Basophils % 0.7 % (0.1-2.0); Bilirubin,Total 0.6 mg/dl (0.2-1.3); Calcium 9.2 mg/dl (8.4-10.2); Carbon Dioxide 27 mmol/L (22.0-30.0); Eosinophils # 0.3 K/mm3 (0.0-0.4); Eosinophils % 4.6 % (0.1-12.0); Globulin 3.1 g/dL (1.3-3.2); Glucose 118 mg/dl (74-100); Hematocrit 48.7 % (42.0-52.0); Hemoglobin 15.8 g/dL (14.1-18.0); Lymphocytes # 2.1 K/mm3 (0.7-4.5); Lymphocytes % 34.6 % (10-50); Mean Corpuscular HGB Conc 32.4 g/dL (31.8-35.4); Mean Corpuscular Hemoglobin 29.2 pg (27.0-31.2); Mean Platelet Volume 7.5 fl (7.4-10.4); Monocytes # 0.4 K/mm3 (0.1-1.0); Monocytes % 6.9 % (1.7-9.3); Neutrophils # 3.2 K/mm3 (1.8-7.8); Neutrophils % 53.2 % (37.0-80.0); Platelet Count 224 K/mm3 (142-424); Red Blood Count 5.41 M/mm3 (4.60-6.20); Red Cell Distribution Width 14.3 % (11.5-17.5); Total Protein,Serum 7.6 g/dl (6.3-8.2)
--- NOTE | 2023-02-23 03:13 | PC.NURSE ---
patient back from [facility] at this time
--- NOTE | 2023-02-23 04:32 | HMH.EDGENADL ---
Discharge Plan Disposition Patient Disposition: Home, Self-Care Condition: Good Prescriptions Prescriptions: New oxycodone 5 mg tablet 5 mg PO Q8H PRN (Reason: pain) Qty: 12 0RF ondansetron 4 mg tablet,disintegrating 4 mg PO Q8H PRN (Reason: nausea and vomiting) 4 Days Qty: 12 0RF ketorolac 10 mg tablet 10 mg PO Q8H PRN (Reason: pain) Qty: 12 0RF tamsulosin [Flomax] 0.4 mg capsule 0.4 mg PO DAILY Qty: 10 0RF No Action aspirin 81 mg tablet 81 mg PO DAILY atorvastatin [Lipitor] 40 mg tablet 40 mg PO DAILY Qty: 90 3RF Entresto 24-26 mg tablet 1 tab PO BID Qty: 180 3RF Brilinta 90 mg tablet 90 mg PO Q12H Referrals Follow up/Referrals: Jose Daniel Monreal MD [Primary Care Provider] - See instructions Idris Quiros MD [Staff Physician] - See instructions Activity Restrictions/Add. Instructions Additional Instructions/Restrictions: You were evaluated in the emergency department today and diagnosed with a 5 mm left-sided kidney stone. Please follow-up closely with urology. Call and schedule an appointment as an outpatient over the next 3 days. Also recommend close follow-up with your primary care provider over the next 3 days. child support specialist your prescriptions and take them as prescribed. Return to the emergency department for new or worsening symptoms, such as significant worsening pain, fevers, chills, vomiting, or other concerns. Clinical Impressions Clinical Impression: Ureterolithiasis, Left flank pain Instructions Patient Instructions: DI for Kidney Stones Discharge ED Provider: Lara Julien General Adult HPI General Chief complaint: Urogenital-Female Stated complaint: ? Kidney stone Time Seen by Provider: 02/23/23 02:51 Mode of Arrival: Ambulatory Source of Information: Patient Limitations: No Limitations Description of Symptoms (Recalled from ER Triage Doc. by RN): Patient c/o left flank pain and painful urination. History of Present Illness HPI narrative: This patient is a 67-year-old male with history of kidney stones, CAD, hypertension, and hyperlipidemia presenting to the emergency department for evaluation with concern for left flank pain that woke him up around 130 this morning. He states it feels the same as prior kidney stones. No other concerns noted, such as fevers, chills, nausea, vomiting, or other issues. Related Data Home Medications Medication Instructions Recorded Confirmed aspirin 81 mg tablet 81 mg PO DAILY . 03/12/22 02/23/23 ticagrelor 90 mg tablet (Brilinta) 90 mg PO Q12H Blood thinner 04/09/22 02/23/23 Previous Rx's Medication Instructions Recorded atorvastatin 40 mg tablet (Lipitor) 40 mg PO DAILY . #90 tabs 03/28/22 sacubitril 24 mg-valsartan 26 mg 1 tab PO BID . #180 tabs 03/29/22 tablet (Entresto) ketorolac 10 mg tablet 10 mg PO Q8H PRN pain #12 tabs 02/23/23 ondansetron 4 mg disintegrating 4 mg PO Q8H PRN nausea and 02/23/23 tablet vomiting 4 days #12 tabs oxycodone 5 mg tablet 5 mg PO Q8H PRN pain #12 tabs 02/23/23 tamsulosin 0.4 mg capsule (Flomax) 0.4 mg PO DAILY #10 caps 02/23/23 Allergies Allergy/AdvReac Type Severity Reaction Status Date / Time codeine [CODEINE] AdvReac Mild Nausea Verified 02/23/23 03:05 [facility] Disclaimer: The information contained in this section may have been updated after the patient was seen, as this information can be updated by other users. Medical History Abnormal electrocardiogram [ECG] [EKG] Abnormal result of cardiovascular function study Cardiomyopathy Chest pain Coronary artery disease LV dysfunction Tobacco user Typical angina Surgical History History of colon resection History of right coronary artery stent placement Family History Other No significant family history Social History Smoking Status: Current every day smoker tobacco type: cigarettes packs per day: 1 second hand exposure: Yes alcohol intake: never substance use type: denies use current occupational status: retired Travel in the last 8 weeks: None household members: significant other housing: house current occupational exposures/hazards: No caffeine: Yes ROS Obtained: Yes All systems reviewed & no additional complaints except as documented Physical Exam General General appearance: alert and in no apparent distress Head Head exam: atraumatic and normocephalic Eye Eye exam: Present normal appearance, PERRL and EOMI ENT ENT exam: Present normal exam, normal oropharynx, mucous membranes moist and normal external ear exam Neck Neck exam: Present normal inspection, full ROM and trachea midline; Absent tenderness Chest Chest inspection: Present normal inspection and symmetric chest wall rise; Absent tenderness Respiratory Respiratory exam: Present normal lung sounds bilaterally; Absent respiratory distress, wheezes, stridor or accessory muscle use Cardiovascular Cardiovascular exam: Present regular rate and normal rhythm Abdominal Exam Abdominal exam: Present soft; Absent distention, tenderness or guarding Extremities Exam Extremities exam: Present normal inspection, full ROM and normal capillary refill; Absent tenderness or edema Back Exam Back exam: Present full ROM and CVA tenderness (L); Absent tenderness Neurological Exam Neurological exam: Present alert, oriented X3, CN II-XII intact and normal gait; Absent motor sensory deficit Psychiatric Psychiatric exam: Present normal affect and normal mood Skin Skin exam: Present warm and dry Medical Decision Making Medical Records Medical records reviewed: Yes I reviewed the patient's medical records. Genaro Inquiry Pt receiving controlled substance: Yes Genaro was queried for this patient: Yes Risks and benefits of using a controlled substance: were discussed with pt by me Vital Signs: 02/23/23 02:46 02/23/23 05:54 Temperature 97.9 F 97.8 F Temperature Source Oral Pulse Rate 64 Pulse Rate [Radial] 85 Respiratory Rate 20 16 Blood Pressure 111/80 Blood Pressure [Left Arm] 152/88 H Blood Pressure Mean [Left Arm] 109 Blood Pressure Source [Left Arm] Automatic Cuff Blood Pressure Position [Left Arm] Sitting 02 Sat by Pulse Oximetry 96 Oxygen Delivery Method Room Air Lab Data Lab results reviewed: Yes I reviewed the patient's lab results. Lab Results 02/23/23 02:51: WBC 6.0, RBC 5.41, Hgb 15.8, Hct 48.7, MCV 90.0, MCH 29.2, MCHC 32.4, RDW 14.3, Plt Count 224, MPV 7.5, Neut % (Auto) 53.2, Lymph % (Auto) 34.6, [place] % (Auto) 6.9, Eos % (Auto) 4.6, Baso % (Auto) 0.7, Neut # (Auto) 3.2, Lymph # (Auto) 2.1, [place] # (Auto) 0.4, Eos # (Auto) 0.3, Baso # (Auto) 0.0, Sodium 139, Potassium 4.3, Chloride 104, Carbon Dioxide 27, Anion Gap 12.3, BUN 25 H, Creatinine 1.00, Estimated Creat Clear 89, Estimated GFR 74, Est GFR ( Amer) 90, Glucose 118 H, Calcium 9.2, Total Bilirubin 0.6, AST 40, ALT 28, Alkaline Phosphatase 92, Total Protein 7.6, Albumin 4.5, Globulin 3.1, Albumin/Globulin Ratio 1.5 02/23/23 04:45: Urine Color Yellow, Urine Appearance Clear, Urine pH 5.5, Ur Specific [place] >= 1.030, Urine Protein 1+, Urine Glucose (UA) Negative, Urine Ketones Negative, Urine Blood 3+, Urine Nitrate Negative, Urine Bilirubin 1+ A, Urine Urobilinogen 0.2, Ur Leukocyte Esterase Negative, Urine RBC 50-100, Urine WBC Occasional, Ur Squamous Epith Cells None, Urine Bacteria Trace 02/23/23 02:51 02/23/23 02:51 Orders (Tests/Meds): ED MEDICATIONS Discontinued Medications Generic Name Dose Route Start Last Admin Trade Name Pieterq PRN Reason Stop Dose Admin Acetaminophen 1,000 mg 02/23/23 02:52 02/23/23 03:01 Acetaminophen 1,000mg/100ml Vial IV 02/23/23 02:53 1,000 mg ONCE ONE Administration Lactated Ringer's 1,000 mls @ 999 mls/hr 02/23/23 02:52 02/23/23 03:01 Lactated Ringer's 1000 Ml Bag IV 02/23/23 03:52 999 mls/hr .Q1H1M ONE Administration Ketorolac Tromethamine 15 mg 02/23/23 02:52 02/23/23 03:07 Ketorolac 30mg/Ml Vial IV 02/23/23 02:53 15 mg ONCE ONE Administration ORDERS Category Date Time Status CT abdomen pelvis wo con Stat Cat Scan 02/23/23 02:49 Completed Complete Blood Count Auto Diff Stat Lab 02/23/23 02:51 Completed Comprehensive Metabolic Panel Stat Lab 02/23/23 02:51 Completed Urinalysis and Microscopic Stat Lab 02/23/23 04:45 Completed Urine Culture Stat Micro 02/23/23 03:43 Received Medical Decision Narrative: In summary, this patient is a 67-year-old male presenting to the Emergency Department for evaluation of left flank pain. Differential diagnoses considered include but are not limited to cystitis, pyelonephritis, ureterolithiasis, colitis. Ruling out the most morbid conditions drove assessment. It should be noted patient's history includes CAD, hypertension, and hyperlipidemia which may or may not be at goal therapy. This complicates all aspects of care by increasing patient's risk for morbidity. I reviewed patient's past medical records and noted previous evaluations by urology for ureterolithiasis in the past. On exam, the patient has left CVA tenderness but is in no acute distress. Workup included CBC, CMP, urinalysis, and CT abdomen pelvis without IV contrast. He was given a liter bolus of IV fluids as well as IV Toradol, acetaminophen, and Zofran for symptomatic improvement. I independently interpreted CT scan prior to the radiologist read and noted left ureteral stone at the UVJ with hydronephrosis. Please see their read for final interpretation. Labs were obtained that demonstrated normal creatinine, no leukocytosis, and hematuria without obvious signs of infection. On reassessment, patient had great improvement after administration of medications above. He is resting comfortably and is feeling much better. At this time given that his kidney function is normal he does not have signs of infection, I feel that he is appropriate for discharge with close follow-up with urology. He was given instructions for follow-up. He is also given prescriptions for oxycodone, Flomax, Toradol, and Zofran for symptomatic improvement of his pain. He was given strict return precautions, such as fever, vomiting, or significant increase in pain, and he was discharged in stable condition after all questions were answered.. At this time, patient was deemed to be appropriate for []. I had an interactive discussion with [] who advised []. The patient was given instructions for close outpatient follow-up, very strict return precautions, and the patient was discharged in stable condition with prescriptions for []. It should be noted that social factors including [] complicates care. We discussed []. Critical Care Critical Care Time Critical Care Time: No
[2023-02-23 04:49] LABS: Microscopic, Urine URINE MICROSCOPIC (MICROSCOPIC)
--- NOTE | 2023-02-23 04:52 | PC.NURSE ---
URINE COLLECTED AND SENT TO LAB
[2023-02-23 04:53] LABS: Appearance,Urine CLEAR (Clear); Blood, Urine 3+ (Negative); Color,Urine YELLOW (Yellow); Glucose,Urine (UA) Negative (Negative); Ketones,Urine Negative (Negative); Leukocyte Esterase,Urine Negative (Negative); Nitrate,Urine Negative (Negative); PH,Urine 5.5 (5.0-8.5); Protein,Urine 1+ (Negative); Specific Gravity, Urine >= 1.030 (1.005-1.030); Urobilinogen,Urine 0.2 EU/dl (0.2)
[2023-02-23 05:00] LABS: Bilirubin,Urine 1+ (Negative)
[2023-02-23 05:09] LABS: RBC,Urine 50-100 #/hpf (0-3); WBC,Urine Occasional #/hpf (0-3)
--- NOTE | 2023-02-23 05:09 | PC.NURSE ---
Spoke to Yanira in radiology, CT has been assigned but not being read yet
[2023-02-23 05:10] LABS: Bacteria,Urine Trace /lpf
== END 2023-02-23 06:03 | disposition home or self-care (01) ==
PROVIDERS: Emergency Provider Emergency Medicine; PCP Family Medicine
DX: N20.2 Calculus of kidney with calculus of ureter (principal); N13.30 Unspecified hydronephrosis; R10.9 Unspecified abdominal pain; I25.118 Atherosclerotic heart disease of native coronary artery with other forms of angina pectoris; I10 Essential (primary) hypertension; E78.5 Hyperlipidemia, unspecified; I42.9 Cardiomyopathy, unspecified; F17.210 Nicotine dependence, cigarettes, uncomplicated
CPT/HCPCS: 74176; 80053; 81001; 85025; 87086; 96361; 96374; 96375; 99285; J0131

== ENCOUNTER 2023-02-25 09:34 | Outpatient (CLI) | payer MEDICARE, OTHER, SELFPAY ==
--- NOTE | 2023-02-25 09:51 | XR_ITS ---
FINAL REPORT CLINICAL HISTORY: Kidney Stones in left kidney COMPARISON: 06/30/2021 FINDINGS: SINGLE VIEW ABDOMEN A single view of the abdomen was obtained. Right ureteral stent has been removed in the interval. There is a nonobstructive bowel gas pattern. There is a moderate stool burden. There are multiple small high density foci in the abdomen and pelvis, likely representing ingested material. No definite renal stone identified. IMPRESSION: Moderate stool burden with a nonobstructive bowel gas pattern. No definite renal stone identified. Reviewed, Interpreted and Dictated by Andrew Murillo III, MD Transcribed by Bianca Sawant Authenticated and [facility]
[2023-02-25 11:10] LABS: Estimated Glomerular Filt Rate 74 ml/min (>60); GFR (African American) 90 ML/MIN (>60)
[2023-02-26 14:12] LABS: PSA, Free 0.52 ng/mL
== END 2023-02-25 23:59 ==
LOC: LAB 09:36
PROVIDERS: PCP Family Medicine; Visit Provider Urology
DX: N20.1 Calculus of ureter (principal); N40.0 Benign prostatic hyperplasia without lower urinary tract symptoms
CPT/HCPCS: 36415; 74018; 82565; 84153; 84154

== ENCOUNTER 2023-03-11 08:09 | Outpatient (CLI) | payer MEDICARE, OTHER, SELFPAY ==
--- NOTE | 2023-03-11 08:18 | XR_ITS ---
FINAL REPORT CLINICAL HISTORY: kidney stones COMPARISON: 02/25/2023 FINDINGS: The visualized intestinal gas pattern appears unremarkable without evidence to suggest obstruction. There is a moderate amount of stool present in the colon. Calcifications are present in the pelvis compatible with calcified phleboliths. IMPRESSION: Nonspecific gas pattern with a moderate stool burden. Reviewed, Interpreted and Dictated by Lorenzo Kelly MD Transcribed by Alicia Oliva Authenticated and . [facility]
== END 2023-03-11 23:59 ==
LOC: RAD 08:11
PROVIDERS: PCP Family Medicine; Visit Provider Urology
DX: N20.0 Calculus of kidney (principal)
CPT/HCPCS: 74018

== ENCOUNTER 2023-04-25 14:01 | Outpatient (CLI) | payer MEDICARE, OTHER, SELFPAY ==
[2023-04-25 14:26] LABS: Basophils % 0.6 % (0.1-2.0); Eosinophils # 0.2 K/mm3 (0.0-0.4); Eosinophils % 3.1 % (0.1-12.0); Hematocrit 46.9 % (42.0-52.0); Lymphocytes % 26.1 % (10-50); Mean Corpuscular HGB Conc 32.1 g/dL (31.8-35.4); Mean Corpuscular Hemoglobin 29.8 pg (27.0-31.2); Mean Corpuscular Volume 92.8 fl (80-94); Mean Platelet Volume 7.4 fl (7.4-10.4); Monocytes # 0.4 K/mm3 (0.1-1.0); Monocytes % 5.7 % (1.7-9.3); Neutrophils # 4.8 K/mm3 (1.8-7.8); Neutrophils % 64.5 % (37.0-80.0); Platelet Count 201 K/mm3 (142-424); Red Blood Count 5.05 M/mm3 (4.60-6.20); Red Cell Distribution Width 14.7 % (11.5-17.5); White Blood Count 7.5 K/mm3 (4.8-10.8)
[2023-04-25 14:52] LABS: Alanine Aminotransferase 25 U/L (12-78); Albumin Level 4.4 g/dl (3.5-5.0); Alkaline Phosphatase 88 U/L (38-126); Anion Gap 9.1 mEq/L (5-15); Aspartate Amino Transferase 32 U/L (17-59); Bilirubin,Direct 0.1 mg/dl (0.0-0.4); Bilirubin,Indirect 0.5 mg/dL (0.0-0.9); Bilirubin,Total 0.6 mg/dl (0.2-1.3); Bilirubin,Unconjugated 0.5 mg/dL (0.0-1.1); Blood Urea Nitrogen 14 mg/dl (9-20); Calcium 9.1 mg/dl (8.4-10.2); Carbon Dioxide 29 mmol/L (22.0-30.0); Chloride 105 mmol/L (98-107); Chol/HDL Ratio 2.6 (1-3.5); Cholesterol 98 mg/dl (140-200); Estimated Glomerular Filt Rate 96 ml/min (>60); GFR (African American) 116 ML/MIN (>60); Glucose 116 mg/dl (74-100); HDL Cholesterol 38 mg/dl (40-60); Potassium 4.1 mmoL/L (3.5-5.1); Sodium 139 mmol/L (136-145); Total Protein,Serum 6.8 g/dl (6.3-8.2); Triglycerides 98 mg/dl (30-150); VLDL Cholesterol 20 mg/dL (0-40)
[2023-04-25 15:02] LABS: Direct LDL Cholesterol 45.73 mg/dL (100-129)
== END 2023-04-25 23:59 ==
LOC: LAB 14:03
PROVIDERS: PCP Family Medicine; Visit Provider Physician Assistant
DX: I25.10 Atherosclerotic heart disease of native coronary artery without angina pectoris (principal); R94.31 Abnormal electrocardiogram [ECG] [EKG]; F17.210 Nicotine dependence, cigarettes, uncomplicated; I42.8 Other cardiomyopathies
CPT/HCPCS: 36415; 80048; 80061; 80076; 83735; 85025

== ENCOUNTER 2023-06-10 11:39 | Emergency (ER) | payer MEDICARE, OTHER, SELFPAY ==
[2023-06-10 11:42] VITALS: BP 151/82; PULSE 86; RESP 18; TEMP 36.6; O2SAT 96; BMI 29.5
[2023-06-10 12:00] VITALS: BP 128/75; PULSE 79; O2SAT 95
--- NOTE | 2023-06-10 12:03 | CT_ITS ---
FINAL REPORT CLINICAL HISTORY: pelvis/low back pain FINDINGS: CT PELVIS Thin section axial CT with sagittal and coronal reconstructions. This study was performed with techniques to keep radiation doses as low as reasonably achievable (ALARA). Individualized dose reduction techniques using automated exposure control or adjustment of mA and/or kV according to the patient's size were employed. No fracture is present. There is no subluxation or dislocation . There is moderate hip joint space narrowing, left greater than right. Moderate hypertrophic changes are seen in the left hip. There are degenerative subchondral cyst in the lateral acetabulum bilaterally, left greater than right. Marked hypertrophic changes are seen in the lower lumbar facets. IMPRESSION: Degenerative changes with no acute bony abnormalities. Reviewed, Interpreted and Dictated by Lorenzo Kelly MD Transcribed by Selam Martinez Authenticated and [facility]
--- NOTE | 2023-06-10 12:03 | CT_ITS ---
FINAL REPORT TECHNIQUE: Axial images were obtained of the lumbar spine by computed tomography. Coronal and sagittal reconstruction process performed. This study was performed with techniques to keep radiation doses as low as reasonably achievable (ALARA). Individualized dose reduction techniques using automated exposure control or adjustment of mA and/or kV according to the patient''s size were employed. CLINICAL HISTORY: pelvis/low back pain FINDINGS: Lumbar vertebrae show normal height. There is advanced to space narrowing at L4-5. There is mild to space narrowing at L1-2 and L2-3. There is no malalignment. The facets are properly aligned. There is no acute fracture. L1-2: Moderate diffuse disc bulge and mild bilateral neuroforaminal narrowing. L2-3: Mild to moderate diffuse disc bulge with mild to moderate bilateral neuroforaminal narrowing. L3-4: Moderate diffuse disc bulge with moderate to high-grade bilateral neuroforaminal narrowing. L4-5: Moderate diffuse disc bulge and endplate hypertrophy eccentric to the right. Moderate to high-grade right neuroforaminal narrowing. L5-S1: Moderate diffuse disc bulge with marked facet hypertrophy. High-grade bilateral neuroforaminal narrowing. IMPRESSION: No acute bony abnormality. Multilevel degenerative disc disease with neuroforaminal compromise most evident on the right at L4-5 and bilaterally at L3-4 and L5-S1. Reviewed, Interpreted and Dictated by Lorenzo Kelly MD Transcribed by Selam Martinez Authenticated and . [facility]
--- NOTE | 2023-06-10 12:04 | ED_ITS ---
Discharge Plan Disposition Patient Disposition: Home, Self-Care Prescriptions Prescriptions: New lidocaine 4 % adhesive patch,medicated 1 patch topical DAILY Qty: 5 0RF Rx Instructions: may leave on for up to 12 hrs ibuprofen 800 mg tablet 800 mg PO TID PRN (Reason: pain) 7 Days Qty: 20 0RF cyclobenzaprine 5 mg tablet 5 mg PO TID PRN (Reason: muscle spasm) 5 Days Qty: 15 0RF No Action aspirin 81 mg tablet 81 mg PO DAILY tamsulosin [Flomax] 0.4 mg capsule 0.4 mg PO DAILY Qty: 30 0RF atorvastatin [Lipitor] 40 mg tablet 40 mg PO DAILY Qty: 90 3RF ketorolac 10 mg tablet 10 mg PO Q8H PRN (Reason: pain) Qty: 12 0RF Referrals Follow up/Referrals: Jose Daniel Monreal MD [Primary Care Provider] - See instructions Activity Restrictions/Add. Instructions Additional Instructions/Restrictions: Your symptoms are most likely secondary to musculoskeletal strain in the region of your pain. Please return to the emergency part with any significant paralysis of your leg bowel or bladder incontinence high fevers or other concerns. Clinical Impressions Clinical Impression: Lumbosacral strain Discharge ED Provider: Jada Hinton Adult HPI General Chief complaint: PAIN Stated complaint: right hip pain Time Seen by Provider: 06/10/23 11:57 Mode of Arrival: Ambulatory Source of Information: Patient Limitations: No Limitations Description of Symptoms (Recalled from ER Triage Doc. by RN): Patient presents to ER with complaints of right hip pain that started last night. Patient reports he was working on his truck and felt something pop and had sharp pain shoot down right leg into knee. Reports pain is worse with ambulation and is 9/10. History of Present Illness HPI narrative: Patient is a 67-year-old male presenting today with nontraumatic right lumbosacral pain. States it is so severe that he is having a hard time extending his back and restroom in a flexed position. No obvious trauma or injury he is aware. Was working on his truck last night but states that he is not working or doing any more physical activity than normal. Denies any radiating symptoms denies any fevers or chills or history of cancer. No saddle anesthesia no urinary or bowel incontinence or lower extremity weakness. Related Data Home Medications Medication Instructions Recorded Confirmed aspirin 81 mg tablet 81 mg PO DAILY . 03/12/22 04/25/23 Previous Rx's Medication Instructions Recorded ketorolac 10 mg tablet 10 mg PO Q8H PRN pain #12 tabs 02/23/23 tamsulosin 0.4 mg capsule (Flomax) 0.4 mg PO DAILY #30 caps 02/25/23 atorvastatin 40 mg tablet (Lipitor) 40 mg PO DAILY . #90 tabs 05/28/23 cyclobenzaprine 5 mg tablet 5 mg PO TID PRN muscle spasm 5 06/10/23 days #15 tabs ibuprofen 800 mg tablet 800 mg PO TID PRN pain 7 days #20 06/10/23 tabs lidocaine 4 % topical patch 1 patch topical DAILY #5 ea 06/10/23 Allergies Allergy/AdvReac Type Severity Reaction Status Date / Time codeine [CODEINE] AdvReac Mild Nausea Verified 04/25/23 13:33 [facility] Disclaimer: The information contained in this section may have been updated after the patient was seen, as this information can be updated by other users. Medical History Coronary artery disease Tobacco user Cardiomyopathy Typical angina LV dysfunction Abnormal electrocardiogram [ECG] [EKG] Chest pain Abnormal result of cardiovascular function study Surgical History History of colonoscopy History of right coronary artery stent placement History of colon resection Family History Other No significant family history Social History Smoking Status: Current every day smoker tobacco type: cigarettes packs per day: 1 second hand exposure: Yes alcohol intake: never substance use type: denies use current occupational status: retired Travel in the last 8 weeks: None household members: significant other housing: house current occupational exposures/hazards: No caffeine: Yes ROS Obtained: Yes All systems reviewed & no additional complaints except as documented Physical Exam General General appearance: alert Respiratory Respiratory exam: Present normal lung sounds bilaterally Cardiovascular Cardiovascular exam: Present regular rate and normal rhythm Back Exam Back exam: Present other (Significant pain over the superior lateral aspect of the right lumbosacral and iliac region no radiation of tenderness lower extremity motor and neurological exam is normal as well as vascular exam) Neurological Exam Neurological exam: Present alert and oriented X3 Medical Decision Making Genaro Inquiry Pt receiving controlled substance: No Vital Signs: 06/10/23 11:42 06/10/23 12:00 Temperature 97.9 F Temperature Source Oral Pulse Rate 79 Pulse Rate [Right] 86 Respiratory Rate 18 Blood Pressure 128/75 Blood Pressure [Right Arm] 151/82 H Blood Pressure Mean [Right Arm] 105 Blood Pressure Source [Right Arm] Automatic Cuff 02 Sat by Pulse Oximetry 96 95 Oxygen Delivery Method Room Air Orders (Tests/Meds): ED MEDICATIONS Discontinued Medications Generic Name Dose Route Start Last Admin Trade Name Freq PRN Reason Stop Dose Admin Acetaminophen 1,000 mg 06/10/23 12:03 06/10/23 12:14 Acetaminophen 500mg Tab PO 06/10/23 12:04 1,000 mg ONCE ONE Administration Ketorolac Tromethamine 60 mg 06/10/23 12:01 06/10/23 12:13 Ketorolac 60mg/2ml Vial IM 06/10/23 12:02 60 mg ONCE ONE Administration Lidocaine 1 each 06/10/23 12:01 06/10/23 12:14 Lidocaine 5% Transdermal Patch TP 06/10/23 12:02 1 each ONCE ONE Administration ORDERS Category Date Time Status CT bony pelvis Stat Cat Scan 06/10/23 12:[address] lumbar spine wo con Stat Cat Scan 06/10/23 12:03 Taken Medical Decision Narrative: 67-year-old with above history and physical most likely lumbosacral strain. However given his age malignancy is certainly on the differential we will get a CT scan of his bony pelvis and lumbosacral spine to further evaluate for this. I do not suspect any other pathology at this point. Will give him Toradol Tylenol lidocaine patch and will reassess. Reassess 2:09 PM patient feeling better serial neurologic musculoskeletal exams are unremarkable other than localized tenderness. CT scans performed which I personally interpreted showed no malignancy no significant acute bony abnormality and just degenerative changes this is consistent with radiology read. Symptomatic management sent to his pharmacy return precautions emphasized I also advised that he rest for several days from work patient was discharged in stable Critical Care Critical Care Time Critical Care Time: No
[2023-06-10] MEDS: KETOROLAC 60MG/2ML VIAL 60 MG IM (12:13)
[2023-06-10] MEDS: ACETAMINOPHEN 500MG TAB 1000 MG PO (12:14)
[2023-06-10] MEDS: LIDOCAINE 5% TRANSDERMAL PATCH 1 EACH TP (12:14)
--- NOTE | 2023-06-10 12:49 | PC.NURSE ---
Rounded on patient no needs at this time.
--- NOTE | 2023-06-10 14:01 | PC.NURSE ---
Rounded on pt chao see if they had any needs and pt asked for something to drink. Checked with the Dr and pt was able to have something to drink. Pt had no other needs at this time
[2023-06-10 14:15] VITALS: BP 129/76; PULSE 68; RESP 18; TEMP 36.8; O2SAT 97
== END 2023-06-10 14:15 | disposition home or self-care (01) ==
PROVIDERS: Emergency Provider Nurse Practitioner; PCP Family Medicine
DX: S39.012A Strain of muscle, fascia and tendon of lower back, initial encounter (principal); F17.210 Nicotine dependence, cigarettes, uncomplicated; X50.0XXA Overexertion from strenuous movement or load, initial encounter
CPT/HCPCS: 72131; 72192; 96372; 99285

== ENCOUNTER 2023-06-12 05:53 | Emergency (ER) | payer MEDICARE, OTHER, SELFPAY ==
[2023-06-12 06:00] VITALS: BP 137/90; PULSE 81; RESP 20; O2SAT 96
[2023-06-12 06:06] VITALS: BP 137/90; PULSE 78; RESP 20; TEMP 36.6; O2SAT 96; BMI 30.4
--- NOTE | 2023-06-12 06:07 | CT_ITS ---
FINAL REPORT TECHNIQUE: Axial images through the abdomen and pelvis were performed without contrast. This study was performed with techniques to keep radiation doses as low as reasonably achievable, (ALARA). Individualized dose reduction techniques using automated exposure control or adjustment of mA and/or kV according to the patient's size were employed. CLINICAL HISTORY: R low back pain, hx kidney stones COMPARISON: None FINDINGS: Abdomen: The lung bases are clear. The liver parenchyma is homogeneous. The gallbladder is present and mildly distended. The spleen, pancreas, and adrenals are unremarkable. There are small nonobstructing stones present in the right kidney. Postoperative changes are noted in the right colon. Pelvis: The urinary bladder is incompletely distended. The appendix is not visualized. There is no pelvic mass or inflammation. Phleboliths are present in the floor of the pelvis. IMPRESSION: Multiple small nonobstructing right renal stones are present without evidence of hydronephrosis or hydroureter. Postoperative changes present in the right colon. The gallbladder is present and mildly distended. Reviewed, Interpreted and Dictated by Lorenzo Kelly MD Transcribed by Alicia Oliva Authenticated and [facility]
--- NOTE | 2023-06-12 06:09 | ED_ITS ---
Discharge Plan Disposition Patient Disposition: Home, Self-Care Condition: Good Prescriptions Prescriptions: New ketorolac 10 mg tablet 10 mg PO Q8H PRN (Reason: pain) 5 Days Qty: 10 0RF tamsulosin 0.4 mg capsule 0.4 mg PO DAILY 30 Days Qty: 30 0RF Held aspirin 81 mg tablet 81 mg PO DAILY Hold Instructions: Resume on 06/19/23. Discontinued tamsulosin [Flomax] 0.4 mg capsule 0.4 mg PO DAILY Qty: 30 0RF ibuprofen 800 mg tablet 800 mg PO TID PRN (Reason: pain) 7 Days Qty: 20 0RF ketorolac 10 mg tablet 10 mg PO Q8H PRN (Reason: pain) Qty: 12 0RF No Action atorvastatin [Lipitor] 40 mg tablet 40 mg PO DAILY Qty: 90 3RF lidocaine 4 % adhesive patch,medicated 1 patch topical DAILY Qty: 5 0RF Rx Instructions: may leave on for up to 12 hrs cyclobenzaprine 5 mg tablet 5 mg PO TID PRN (Reason: muscle spasm) 5 Days Qty: 15 0RF Referrals Follow up/Referrals: Jose Daniel Monreal MD [Primary Care Provider] - See instructions Activity Restrictions/Add. Instructions Additional Instructions/Restrictions: I have prescribed Flomax as well as a pain medication that should help with both muscular low back pain as well as kidney stone type of pain. Please follow-up with your urologist for any refills of the Flomax if you find that it helps. Please return with any new or worsening symptoms. Clinical Impressions Clinical Impression: Acute right flank pain Instructions Patient Instructions: DI for Acute Abdominal Pain Discharge ED Provider: Reji Flowers General Adult HPI <Aruna Boles MD - Last Filed: 06/12/23 06:58> General Chief complaint: Abdominal Pain Stated complaint: kidney stone Time Seen by Provider: 06/12/23 06:05 History of Present Illness HPI narrative: 67-year-old male with a history of of CAD with stent, history of prior kidney stones presents to the ER with concerns of right-sided low back pain. He is also having difficulty urinating. Patient states he has a history of kidney stones and states he started having pain yesterday. He was told it was likely muscle spasm and given a muscle relaxant. He states pain has gotten worse. He had difficulty urinating last night but was able to pass urine this morning. He cannot see any blood in the urine. Related Data Home Medications Medication Instructions Recorded Confirmed aspirin 81 mg tablet 81 mg PO DAILY . 03/12/22 04/25/23 Previous Rx's Medication Instructions Recorded atorvastatin 40 mg tablet (Lipitor) 40 mg PO DAILY . #90 tabs 05/28/23 cyclobenzaprine 5 mg tablet 5 mg PO TID PRN muscle spasm 5 06/10/23 days #15 tabs lidocaine 4 % topical patch 1 patch topical DAILY #5 ea 06/10/23 ketorolac 10 mg tablet 10 mg PO Q8H PRN pain 5 days #10 06/12/23 tabs tamsulosin 0.4 mg capsule 0.4 mg PO DAILY 30 days #30 caps 06/12/23 Allergies Allergy/AdvReac Type Severity Reaction Status Date / Time codeine [CODEINE] AdvReac Mild Nausea Verified 04/25/23 13:33 PFS <Aruna Boles MD - Last Filed: 06/12/23 06:58> PFS Disclaimer: The information contained in this section may have been updated after the patient was seen, as this information can be updated by other users. Medical History Coronary artery disease Tobacco user Cardiomyopathy Typical angina LV dysfunction Abnormal electrocardiogram [ECG] [EKG] Chest pain Abnormal result of cardiovascular function study Surgical History History of colonoscopy History of right coronary artery stent placement History of colon resection Family History Other No significant family history Social History Smoking Status: Current every day smoker tobacco type: cigarettes packs per day: 1 second hand exposure: Yes alcohol intake: never substance use type: denies use current occupational status: retired Travel in the last 8 weeks: None household members: significant other housing: house current occupational exposures/hazards: No caffeine: Yes <Aruna Boles MD - Last Filed: 06/12/23 06:58> ROS Obtained: Yes All systems reviewed & no additional complaints except as documented Constitutional Constitutional: Denies chills, Denies fever(s), Denies headache(s) and Denies weakness Eyes Eyes: Denies change in vision ENT Ears, Nose, Mouth, and Throat: Denies dizziness, Denies headache(s), Denies nasal congestion and Denies sore throat Cardiovascular Cardiovascular: Denies chest pain, Denies dyspnea and Denies leg edema Respiratory Respiratory: Denies cough and Denies dyspnea Gastrointestinal Gastrointestingal: Denies constipation, diarrhea, nausea or vomiting Genitourinary Male Genitourinary: Reports difficulty urinating and Reports flank pain Musculoskeletal Musculoskeletal: Denies myalgias, Denies numbness and Denies tingling Integumentary/Breasts Skin/Breast: Denies change in pigmentation Neurologic Neurologic: Denies dizziness, Denies headache(s), Denies numbness, Denies tingling and Denies weakness Physical Exam <Aruna Boles MD - Last Filed: 06/12/23 06:58> General General appearance: alert and in no apparent distress Head Head exam: atraumatic and normocephalic Eye Eye exam: Present PERRL and EOMI ENT ENT exam: Present mucous membranes moist Neck Neck exam: Present normal inspection and full ROM Chest Chest inspection: Present symmetric chest wall rise Respiratory Respiratory exam: Absent respiratory distress or stridor Cardiovascular Cardiovascular exam: Present regular rate and normal rhythm Abdominal Exam Abdominal exam: Present soft; Absent distention or tenderness Extremities Exam Extremities exam: Present full ROM Back Exam Back exam: Present CVA tenderness (R); Absent CVA tenderness (L) Neurological Exam Neurological exam: Present alert and oriented X3; Absent motor sensory deficit Psychiatric Psychiatric exam: Present normal affect and normal mood Skin Skin exam: Present warm and dry Medical Decision Making <Aruna Boles MD - Last Filed: 06/12/23 06:58> Medical Records Medical records reviewed: Yes I reviewed the patient's medical records. MR Comment: Reviewed CT lumbar spine and pelvis performed on 06/09. No acute bony abnormalities were identified on those images. ER note from that presentation demonstrates concern for possible work-related injury, muscle spasm. Genaro Inquiry Pt receiving controlled substance: No Vital Signs: 06/12/23 06:00 06/12/23 06:06 06/12/23 07:59 Temperature 97.9 F Temperature Source Oral Pulse Rate 81 65 Pulse Rate [Right Radial] 78 Respiratory Rate 20 20 Blood Pressure 137/90 144/87 H Blood Pressure [Left Arm] 137/90 Blood Pressure Mean 94 106 Blood Pressure Mean [Left Arm] 105 Blood Pressure Source Blood Pressure Source [Left Arm] Automatic Cuff Blood Pressure Position Blood Pressure Position [Left Arm] Sitting 02 Sat by Pulse Oximetry 96 96 97 Oxygen Delivery Method Room Air Room Air Room Air 06/12/23 08:01 06/12/23 08:30 06/12/23 09:28 Temperature 97.9 F Temperature Source Oral Pulse Rate 64 66 66 Pulse Rate [Right Radial] Respiratory Rate 20 Blood Pressure 141/92 H 133/84 133/81 Blood Pressure [Left Arm] Blood Pressure Mean 104 107 Blood Pressure Mean [Left Arm] Blood Pressure Source Automatic Cuff Blood Pressure Source [Left Arm] Blood Pressure Position Sitting Blood Pressure Position [Left Arm] 02 Sat by Pulse Oximetry 96 97 Oxygen Delivery Method Room Air Room Air Room Air Lab Data Lab Results 06/12/23 06:03: WBC 6.3, RBC 5.46, Hgb 15.8, Hct 50.3, MCV 92.1, MCH 28.9, MCHC 31.4 L, RDW 14.5, Plt Count 215, MPV 7.4, Neut % (Auto) 62.0, Lymph % (Auto) 27.7, [place] % (Auto) 6.0, Eos % (Auto) 3.2, Baso % (Auto) 1.1, Neut # (Auto) 3.9, Lymph # (Auto) 1.8, [place] # (Auto) 0.4, Eos # (Auto) 0.2, Baso # (Auto) 0.1, Sodium 139, Potassium 4.9, Chloride 105, Carbon Dioxide 27, Anion Gap 11.9, BUN 21 H, Creatinine 0.80, Estimated Creat Clear 89, Estimated GFR 96, Est GFR ( Amer) 116, Glucose 95, Calcium 9.8, Total Bilirubin 1.0, AST 42, ALT 27, Alkaline Phosphatase 88, Total Protein 7.4, Albumin 4.3, Globulin 3.1, Albumin/Globulin Ratio 1.4, Urine Color Yellow, Urine Appearance Clear, Urine pH 5.5, Ur Specific [place] 1.025, Urine Protein Negative, Urine Glucose (UA) Negative, Urine Ketones 1+, Urine Blood Negative, Urine Nitrate Negative, Urine Bilirubin Negative, Urine Urobilinogen 1.0, Ur Leukocyte Esterase Negative, Urine RBC Occasional, Urine WBC 3-5, Urine Bacteria Trace, Urine Mucus Trace 06/12/23 06:03 06/12/23 06:03 Orders (Tests/Meds): ED MEDICATIONS Discontinued Medications Generic Name Dose Route Start Last Admin Trade Name Dwaine PRN Reason Stop Dose Admin Lactated Ringer's 1,000 mls @ 999 mls/hr 06/12/23 06:07 06/12/23 06:13 Lactated Ringer's 1000 Ml Bag IV 06/12/23 07:07 999 mls/hr .Q1H1M ONE Administration Ketorolac Tromethamine 15 mg 06/12/23 06:07 06/12/23 06:13 Ketorolac 30mg/Ml Vial IV 06/12/23 06:08 15 mg ONCE ONE Administration Morphine Sulfate 2 mg 06/12/23 06:07 Morphine 2mg/Ml Syringe IV 06/12/23 06:08 ONCE ONE Ondansetron HCl 4 mg 06/12/23 06:07 Ondansetron 4mg/2ml Vial IV 06/12/23 06:08 ONCE ONE ORDERS Category Date Time Status CT abdomen pelvis wo con Stat Cat Scan 06/12/23 06:07 Completed CBC w/Auto Diff [Complete Blood Count Auto Diff] Stat Lab 06/12/23 06:03 Completed CMP [Comprehensive Metabolic Panel] Stat Lab 06/12/23 06:03 Completed Urinalysis and Microscopic Stat Lab 06/12/23 06:03 Completed Medical Decision Narrative: In summary, this 67year old male presents to the emergency department today with right flank pain, difficulty urinating, symptoms consistent with prior kidney stone. On initial evaluation patient is hemodynamically stable, afebrile, he appears uncomfortable sitting on the edge of the bed leaning forward, patient has right-sided CVA/right paraspinal tenderness without deformity, bruising, or other signs of injury. He states previous diagnosis of muscle spasm and treatment with muscle relaxant has not helped. He is concerned about lack of urination and possibly having a blockage. Differential diagnosis includes but is not limited to urinary tract infection, kidney stone, hydronephrosis, kidney dysfunction, electrolyte abnormality, and is possible patient has musculoskeletal injury such as muscle spasm that is just not responding to the previously prescribed muscle relaxant. Based on these concerns, I ordered urine studies, CBC, CMP, noncontrasted CT abdomen pelvis. Patient received IV Toradol for treatment. I offered morphine and Zofran but patient declined. He is also receiving IV fluids. Labs personally reviewed demonstrate prerenal azotemia, patient is receiving IV fluids, no findings of electrolyte abnormality, UA with few RBCs and WBCs, trace bacteria, no obvious findings of infection. CBC pending at the time of physician handoff. CT abdomen pelvis personally interpreted demonstrates calcification near the UVJ, unclear to me if this is in the ureter or not, patient does not have significant hydronephrosis, radiology read pending at this time. Patient handed off to Dr. Flowers at physician shift change for further management and disposition pending CBC and final radiology reads. <Reji Flowers MD - Last Filed: 06/12/23 18:54> Vital Signs: 06/12/23 06:00 06/12/23 06:06 06/12/23 07:59 Temperature 97.9 F Temperature Source Oral Pulse Rate 81 65 Pulse Rate [Right Radial] 78 Respiratory Rate 20 20 Blood Pressure 137/90 144/87 H Blood Pressure [Left Arm] 137/90 Blood Pressure Mean 94 106 Blood Pressure Mean [Left Arm] 105 Blood Pressure Source Blood Pressure Source [Left Arm] Automatic Cuff Blood Pressure Position Blood Pressure Position [Left Arm] Sitting 02 Sat by Pulse Oximetry 96 96 97 Oxygen Delivery Method Room Air Room Air Room Air 06/12/23 08:01 06/12/23 08:30 06/12/23 09:28 Temperature 97.9 F Temperature Source Oral Pulse Rate 64 66 66 Pulse Rate [Right Radial] Respiratory Rate 20 Blood Pressure 141/92 H 133/84 133/81 Blood Pressure [Left Arm] Blood Pressure Mean 104 107 Blood Pressure Mean [Left Arm] Blood Pressure Source Automatic Cuff Blood Pressure Source [Left Arm] Blood Pressure Position Sitting Blood Pressure Position [Left Arm] 02 Sat by Pulse Oximetry 96 97 Oxygen Delivery Method Room Air Room Air Room Air Lab Data Lab Results 06/12/23 06:03: WBC 6.3, RBC 5.46, Hgb 15.8, Hct 50.3, MCV 92.1, MCH 28.9, MCHC 31.4 L, RDW 14.5, Plt Count 215, MPV 7.4, Neut % (Auto) 62.0, Lymph % (Auto) 27.7, [place] % (Auto) 6.0, Eos % (Auto) 3.2, Baso % (Auto) 1.1, Neut # (Auto) 3.9, Lymph # (Auto) 1.8, [place] # (Auto) 0.4, Eos # (Auto) 0.2, Baso # (Auto) 0.1, Sodium 139, Potassium 4.9, Chloride 105, Carbon Dioxide 27, Anion Gap 11.9, BUN 21 H, Creatinine 0.80, Estimated Creat Clear 89, Estimated GFR 96, Est GFR ( Amer) 116, Glucose 95, Calcium 9.8, Total Bilirubin 1.0, AST 42, ALT 27, Alkaline Phosphatase 88, Total Protein 7.4, Albumin 4.3, Globulin 3.1, Albumin/Globulin Ratio 1.4, Urine Color Yellow, Urine Appearance Clear, Urine pH 5.5, Ur Specific [place] 1.025, Urine Protein Negative, Urine Glucose (UA) Negative, Urine Ketones 1+, Urine Blood Negative, Urine Nitrate Negative, Urine Bilirubin Negative, Urine Urobilinogen 1.0, Ur Leukocyte Esterase Negative, Urine RBC Occasional, Urine WBC 3-5, Urine Bacteria Trace, Urine Mucus Trace Orders (Tests/Meds): ED MEDICATIONS Discontinued Medications Generic Name Dose Route Start Last Admin Trade Name Freq PRN Reason Stop Dose Admin Lactated Ringer's 1,000 mls @ 999 mls/hr 06/12/23 06:07 06/12/23 06:13 Lactated Ringer's 1000 Ml Bag IV 06/12/23 07:07 999 mls/hr .Q1H1M ONE Administration Ketorolac Tromethamine 15 mg 06/12/23 06:07 06/12/23 06:13 Ketorolac 30mg/Ml Vial IV 06/12/23 06:08 15 mg ONCE ONE Administration Morphine Sulfate 2 mg 06/12/23 06:07 Morphine 2mg/Ml Syringe IV 06/12/23 06:08 ONCE ONE Ondansetron HCl 4 mg 06/12/23 06:07 Ondansetron 4mg/2ml Vial IV 06/12/23 06:08 ONCE ONE ORDERS Category Date Time Status CT abdomen pelvis wo con Stat Cat Scan 06/12/23 06:07 Completed CBC w/Auto Diff [Complete Blood Count Auto Diff] Stat Lab 06/12/23 06:03 Completed CMP [Comprehensive Metabolic Panel] Stat Lab 06/12/23 06:03 Completed Urinalysis and Microscopic Stat Lab 06/12/23 06:03 Completed Medical Decision Narrative: In summary, this 67year old male presents to the emergency department today with right flank pain, difficulty urinating, symptoms consistent with prior kidney stone. On initial evaluation patient is hemodynamically stable, afebrile, he appears uncomfortable sitting on the edge of the bed leaning forward, patient has right-sided CVA/right paraspinal tenderness without deformity, bruising, or other signs of injury. He states previous diagnosis of muscle spasm and treatment with muscle relaxant has not helped. He is concerned about lack of urination and possibly having a blockage. Differential diagnosis includes but is not limited to urinary tract infection, kidney stone, hydronephrosis, kidney dysfunction, electrolyte abnormality, and is possible patient has musculoskeletal injury such as muscle spasm that is just not responding to the previously prescribed muscle relaxant. Based on these concerns, I ordered urine studies, CBC, CMP, noncontrasted CT abdomen pelvis. Patient received IV Toradol for treatment. I offered morphine and Zofran but patient declined. He is also receiving IV fluids. Labs personally reviewed demonstrate prerenal azotemia, patient is receiving IV fluids, no findings of electrolyte abnormality, UA with few RBCs and WBCs, trace bacteria, no obvious findings of infection. CBC pending at the time of physician handoff. CT abdomen pelvis personally interpreted demonstrates calcification near the UVJ, unclear to me if this is in the ureter or not, patient does not have significant hydronephrosis, radiology read pending at this time. Patient handed off to Dr. Flowers at physician shift change for further management and disposition pending CBC and final radiology reads. Reji Flowers MD: I assumed care of this patient from the previous emergency medicine physician. CT imaging reveals multiple right-sided kidney stones without evidence of hydronephrosis or obstruction. Patient had mild improvement of symptoms upon repeat evaluation. His symptoms, per my clinical judgment, still may be attributable to musculoskeletal precipitant although, given urinalysis with some evidence of inflammation and trace microscopic hematuria, it is possible that he may be experiencing pain due to a recently passed stone. Regardless, he has no evidence of obstruction, nor pyelonephritis, and is appropriate for discharge at this time with outpatient follow-up. Return precautions were given. Critical Care <Aruna Boles MD - Last Filed: 06/12/23 06:58> Critical Care Time Critical Care Time: No
[2023-06-12] MEDS: LACTATED RINGERS 1000ML 1,000 ML 999 ML IV (06:13)
[2023-06-12] MEDS: KETOROLAC 30MG/ML VIAL 15 MG IV (06:13)
[2023-06-12 06:18] LABS: Microscopic, Urine URINE MICROSCOPIC (MICROSCOPIC)
[2023-06-12 06:27] LABS: Appearance,Urine CLEAR (Clear); Bilirubin,Urine Negative (Negative); Blood, Urine Negative (Negative); Color,Urine YELLOW (Yellow); Glucose,Urine (UA) Negative (Negative); Ketones,Urine 1+ (Negative); Leukocyte Esterase,Urine Negative (Negative); Nitrate,Urine Negative (Negative); PH,Urine 5.5 (5.0-8.5); Protein,Urine Negative (Negative); Specific Gravity, Urine 1.025 (1.005-1.030)
[2023-06-12 06:29] LABS: Chloride 105 mmol/L (98-107); Potassium 4.9 mmoL/L (3.5-5.1); Sodium 139 mmol/L (136-145)
[2023-06-12 06:32] LABS: Alanine Aminotransferase 27 U/L (12-78); Albumin Level 4.3 g/dl (3.5-5.0); Albumin/Globulin Ratio 1.4 (1.1-1.8); Alkaline Phosphatase 88 U/L (38-126); Anion Gap 11.9 mEq/L (5-15); Aspartate Amino Transferase 42 U/L (17-59); Blood Urea Nitrogen 21 mg/dl (9-20); Calcium 9.8 mg/dl (8.4-10.2); Carbon Dioxide 27 mmol/L (22.0-30.0); Creatinine Clearance Estimated 89 mL/min (50-200); Estimated Glomerular Filt Rate 96 ml/min (>60); GFR (African American) 116 ML/MIN (>60); Globulin 3.1 g/dL (1.3-3.2); Glucose 95 mg/dl (74-100); Total Protein,Serum 7.4 g/dl (6.3-8.2)
[2023-06-12 06:49] LABS: Bacteria,Urine Trace /lpf
[2023-06-12 06:50] LABS: Mucus,Urine Trace /lpf; RBC,Urine Occasional #/hpf (0-3)
[2023-06-12 06:53] LABS: Basophils # 0.1 K/mm3 (0-0.2); Basophils % 1.1 % (0.1-2.0); Eosinophils # 0.2 K/mm3 (0.0-0.4); Eosinophils % 3.2 % (0.1-12.0); Hematocrit 50.3 % (42.0-52.0); Hemoglobin 15.8 g/dL (14.1-18.0); Lymphocytes # 1.8 K/mm3 (0.7-4.5); Lymphocytes % 27.7 % (10-50); Mean Corpuscular HGB Conc 31.4 g/dL (31.8-35.4); Mean Corpuscular Hemoglobin 28.9 pg (27.0-31.2); Mean Corpuscular Volume 92.1 fl (80-94); Mean Platelet Volume 7.4 fl (7.4-10.4); Monocytes # 0.4 K/mm3 (0.1-1.0); Neutrophils # 3.9 K/mm3 (1.8-7.8); Platelet Count 215 K/mm3 (142-424); Red Blood Count 5.46 M/mm3 (4.60-6.20); Red Cell Distribution Width 14.5 % (11.5-17.5); White Blood Count 6.3 K/mm3 (4.8-10.8)
--- NOTE | 2023-06-12 07:45 | PC.NURSE ---
ROUNDED ON PT, WARM BLANKET PROVIDED. NO NEEDS AT THIS TIME
[2023-06-12 07:59] VITALS: BP 144/87; PULSE 65; O2SAT 97
[2023-06-12 08:01] VITALS: BP 141/92; PULSE 64; O2SAT 96
--- NOTE | 2023-06-12 08:15 | PC.NURSE ---
PT PROVIDED DRINK. CALL LIGHT WITHIN REACH. NO NEEDS AT THIS TIME
[2023-06-12 08:30] VITALS: BP 133/84; PULSE 66; O2SAT 97
--- NOTE | 2023-06-12 09:04 | PC.NURSE ---
CHECKING WITH RADIOLOGY FOR CT READ
--- NOTE | 2023-06-12 09:11 | PC.NURSE ---
DR ROSALES AT BEDSIDE TO UPDATE PT
[2023-06-12 09:28] VITALS: BP 133/81; PULSE 66; RESP 20; TEMP 36.6; O2SAT 97
== END 2023-06-12 09:29 | disposition home or self-care (01) ==
PROVIDERS: Emergency Medicine; Emergency Provider Emergency Medicine; PCP Family Medicine
DX: R10.31 Right lower quadrant pain (principal); M54.59 Other low back pain; F17.210 Nicotine dependence, cigarettes, uncomplicated; I25.119 Atherosclerotic heart disease of native coronary artery with unspecified angina pectoris; Z95.5 Presence of coronary angioplasty implant and graft; Z87.442 Personal history of urinary calculi
CPT/HCPCS: 74176; 80053; 81001; 85025; 96361; 96374; 96375; 99285

== ENCOUNTER 2023-07-11 06:07 | Outpatient (CLI) | payer MEDICARE, OTHER, SELFPAY ==
--- NOTE | 2023-07-11 | CT_ITS ---
FINAL REPORT CLINICAL HISTORY: CURRENT SMOKER 1PPD X 56 YEARS COMPARISON: 07/09/2019 FINDINGS: CTDI vol (mGy): 2.90 DLP: 98.[address] images of the chest were obtained using the low-dose protocol for screening. There is bulky, calcified right paratracheal adenopathy. No axillary mass or adenopathy is identified. On the lung window images, several small bilateral scattered pulmonary nodules are seen. There is an anterior left upper lobe, 3 mm nodule seen on image 32 of series 3. There is a focus in the right lower lobe measuring 2 mm on image 46 of series 3. There are several small calcified granulomas. IMPRESSION: Small bilateral pulmonary nodules measuring up to 3 mm. Lung RADS category 2. Recommend 12 month followup low-dose CT for further evaluation. Reviewed, Interpreted and Dictated by Lorenzo Kelly MD Transcribed by Sudha Garcia Authenticated and [facility]
== END 2023-07-11 23:59 | disposition home or self-care (01) ==
LOC: RAD 06:08
PROVIDERS: PCP Family Medicine; Visit Provider Family Medicine
DX: Z87.891 Personal history of nicotine dependence (principal); Z12.2 Encounter for screening for malignant neoplasm of respiratory organs
CPT/HCPCS: 71271

== ENCOUNTER 2023-11-02 12:08 | Emergency (ER) | payer MEDICARE, OTHER, SELFPAY ==
[2023-11-02 12:09] VITALS: BP 145/87; PULSE 67; RESP 16; TEMP 36.7; O2SAT 95; BMI 30.4
--- NOTE | 2023-11-02 12:19 | XR_ITS ---
PROCEDURE INFORMATION: Exam: XR Left Hand Exam date and time: 11/02/2023 12:22 PM Age: 68 years old Clinical indication: Injury or trauma; Other: [place] accident; Work related; Laceration; Hand; Left; Additional info: Laceration to tip of finger TECHNIQUE: Imaging protocol: Radiologic exam of the left hand. Views: 3 or more views. COMPARISON: No relevant prior studies available. FINDINGS: Bones/joints: There is a fracture through the terminal tuft of the distal phalanx of the left 4th finger. Previous amputation of the distal left 2nd finger. Soft tissues: There is a soft tissue injury at the tip of the 4th finger. There is a small radiopaque foreign body projecting over the 1st metacarpal. IMPRESSION: Soft tissue injury and fracture of the terminal tuft of the distal phalanx left 4th finger.
[2023-11-02 12:30] VITALS: BP 130/83; PULSE 65; O2SAT 95
[2023-11-02 12:55] VITALS: BP 130/81; PULSE 66; O2SAT 96
[2023-11-02 13:30] VITALS: BP 134/81; PULSE 66; O2SAT 96
[2023-11-02] MEDS: LIDOCAINE 1% W/EPI 1:100,000 20ML VIAL 10 ML SQ (13:57)
--- NOTE | 2023-11-02 14:04 | PC.NURSE ---
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
--- NOTE | 2023-11-02 14:06 | PC.NURSE ---
PER SPEAKING WITH THE PT HE REFUSED TO TRANSFER TO [facility]
--- NOTE | 2023-11-02 14:09 | HMH.EDGENADL ---
Discharge Plan Disposition Patient Disposition: Home, Self-Care Prescriptions Prescriptions: New cephalexin 500 mg capsule 1,000 mg PO BID 5 Days Qty: 20 0RF No Action aspirin 81 mg tablet 81 mg PO DAILY atorvastatin [Lipitor] 40 mg tablet 40 mg PO DAILY Qty: 90 3RF cyclobenzaprine 5 mg tablet 5 mg PO TID PRN (Reason: muscle spasm) 5 Days Qty: 15 0RF Referrals Follow up/Referrals: Adi Corona DO [Staff Physician] - See instructions Jose Daniel Monreal MD [Primary Care Provider] - See instructions Activity Restrictions/Add. Instructions Additional Instructions/Restrictions: At this time it was felt you are safe to be discharged home. If new or worsening symptoms please do not hesitate to return the emergency department. Please take your antibiotics as prescribed and call and schedule appoint with Dr. Corona for as soon as possible. If your finger is oozing through the clot please change your dressing daily if needed. Do not soak your hand in water, it is okay to shower however keep that finger away from water. Clinical Impressions Clinical Impression: Fingertip amputation Instructions Patient Instructions: DI for Laceration Repair Print Language Print Language: Beninese Discharge ED Provider: Denilson Mac General Adult HPI General Chief complaint: Wound/Laceration Stated complaint: AO 11/01 @1100, left hand index finger lac Time Seen by Provider: 11/02/23 13:25 Mode of Arrival: Ambulatory Source of Information: Patient Limitations: No Limitations Description of Symptoms (Recalled from ER Triage Doc. by RN): pt presents to ED with c/o laceration to left ring finger. pt reports he was haskins hogging and a limb come loose and cut his finger. approx 45 minutes ago. History of Present Illness HPI narrative: Patient is a 68-year-old male right-handed individual who presents emergency department for evaluation of traumatic injury sustained with his left hand. His left ring finger at the distal tip amputated by a piece of wood while he was haskins hogging. No other acute complaints at this time. Related Data Home Medications ?Medication ?Instructions ?Recorded ?Confirmed aspirin 81 mg tablet 81 mg PO DAILY . 03/12/22 10/28/23 Previous Rx's ?Medication ?Instructions ?Recorded atorvastatin 40 mg tablet (Lipitor) 40 mg PO DAILY . #90 tabs 05/28/23 cyclobenzaprine 5 mg tablet 5 mg PO TID PRN muscle spasm 5 06/10/23 days #15 tabs cephalexin 500 mg capsule 1,000 mg (2 x 500 mg) PO BID 11/02/23 finger infection prophylaxis 5 days #20 caps Allergies Allergy/AdvReac Type Severity Reaction Status Date / Time codeine [CODEINE] AdvReac Mild Nausea Verified 10/28/23 13:57 [facility] Disclaimer: The information contained in this section may have been updated after the patient was seen, as this information can be updated by other users. Medical History (Updated 11/02/23 @ 14:44 by Denilson Mac MD) Hyperlipidemia Coronary artery disease Tobacco user Cardiomyopathy Typical angina LV dysfunction Abnormal electrocardiogram [ECG] [EKG] Chest pain Abnormal result of cardiovascular function study Surgical History History of colonoscopy History of right coronary artery stent placement History of colon resection Family History Other No significant family history Social History Smoking Status: Never smoker second hand exposure: Yes alcohol intake: never substance use type: denies use current occupational status: retired Travel in the last 8 weeks: None household members: significant other housing: house current occupational exposures/hazards: No caffeine: Yes ROS Obtained: Yes Systems reviewed as appropriate & no additional complaints except as documented Physical Exam General General appearance: alert and in no apparent distress Head Head exam: atraumatic and normocephalic Eye Eye exam: Present PERRL and EOMI ENT ENT exam: Present mucous membranes moist Neck Neck exam: Present normal inspection Chest Chest inspection: Present normal inspection and symmetric chest wall rise Respiratory Respiratory exam: Absent respiratory distress Cardiovascular Cardiovascular exam: Present regular rate and normal rhythm Abdominal Exam Abdominal exam: Present soft Extremities Exam Extremities exam: Present other (Distal fingertip amputation with the distal nail involved, no proximal nail involved, no exposed bone.) Neurological Exam Neurological exam: Present alert Psychiatric Psychiatric exam: Present normal affect Skin Skin exam: Present warm and dry Medical Decision Making Genaro Inquiry Pt receiving controlled substance: No Vital Signs: 11/02/23 12:09 11/02/23 12:30 11/02/23 12:55 Temperature 98.1 F Temperature Source Oral Pulse Rate 65 66 Pulse Rate [Left Radial] 67 Respiratory Rate 16 Blood Pressure 130/83 130/81 Blood Pressure [Right Arm] 145/87 H Blood Pressure Mean [Right Arm] 106 02 Sat by Pulse Oximetry 95 95 96 Oxygen Delivery Method Room Air Room Air 11/02/23 13:30 Temperature Temperature Source Pulse Rate 66 Pulse Rate [Left Radial] Respiratory Rate Blood Pressure 134/81 Blood Pressure [Right Arm] Blood Pressure Mean [Right Arm] 02 Sat by Pulse Oximetry 96 Oxygen Delivery Method Orders (Tests/Meds): ED MEDICATIONS Generic Name Dose Route Start Last Admin Trade Name Freq PRN Reason Stop Dose Admin Cefazolin Sodium 2 gm 11/02/23 14:41 Cefazolin 1gm Vial IM 11/02/23 14:42 ONCE ONE Discontinued Medications Generic Name Dose Route Start Last Admin Trade Name Freq PRN Reason Stop Dose Admin Lidocaine/Epinephrine 10 ml 11/02/23 13:56 11/02/23 13:57 Lidocaine 1% W/Epi 1:100,000 20ml Vial SQ 11/02/23 13:57 10 ml ONCE ONE Administration ORDERS Category Date Time Status Hand XR left minimum 3 views [XR hand LT min 3V] Stat Exams 11/02/23 12:19 Completed Medical Decision Narrative: In summary patient is a 5-year-old male past medical history described above presents emergency department for evaluation of traumatic injury sustained to his left index finger. Gauze was applied to the fingertip with pressure upon arrival. Differential diagnosis includes open fracture, among others. Limited trauma survey will be conducted with plain film of the left hand. Plain film of the left hand independently interpreted by me, acute open distal tuft fracture. No other acute traumatic pathology. Formal read shows soft tissue injury and fracture of the terminal tuft of the distal phalanx. The case was discussed with orthopedics regarding management and hemostasis will be achieved and patient will be given antibiotics and will have outpatient follow-up. I agree with this. Wound was copiously irrigated with Hibiclens and water, hand was scrubbed with surgical scrub and hemostasis was achieved with success. Patient will be discharged after 2 g of Ancef IM and will be discharged with a course of Keflex was given multiple return precautions and verbalized understanding will follow-up with orthopedics on outpatient basis. Procedure: Procedure performed was fingertip injury hemostasis. Procedure performed by Denilson Mac. Digital block performed 1% lidocaine with anesthesia achieved. Finger tourniquet applied. Surgicel was placed over top of the distal fingertip amputation and wound was wrapped with slight pressure. Upon repeat check 10 minutes later hemostasis was continued to be achieved. Patient tolerated procedure well. There were no immediate complications. Critical Care Critical Care Time Critical Care Time: No
--- NOTE | 2023-11-02 14:30 | PC.NURSE ---
Pt hand cleaned with sterile water and hibiclens
[2023-11-02] MEDS: CEFAZOLIN 1GM VIAL 2 GM IM (14:52)
[2023-11-02 14:53] VITALS: BP 134/81; PULSE 66; RESP 18; TEMP 36.6; O2SAT 97
== END 2023-11-02 15:18 | disposition home or self-care (01) ==
PROVIDERS: Emergency Provider Emergency Medicine; PCP Family Medicine
DX: S68.625A Partial traumatic transphalangeal amputation of left ring finger, initial encounter (principal); W26.8XXA Contact with other sharp object(s), not elsewhere classified, initial encounter; V84.5XXA Driver of special agricultural vehicle injured in nontraffic accident, initial encounter
CPT/HCPCS: 73130; 96372; 99283

== ENCOUNTER 2024-04-15 12:17 | Emergency (ER) | payer MEDICARE, SELFPAY ==
[2024-04-15 12:21] VITALS: BP 160/80; PULSE 79; RESP 18; TEMP 37.1; O2SAT 95; BMI 30.4
[2024-04-15 12:34] LABS: Influenza B, PCR Not Detected (NotDetected)
[2024-04-15 13:07] LABS: Coronavirus 19, PCR Detected (NotDetected); Influenza A, PCR Detected (NotDetected)
--- NOTE | 2024-04-15 13:23 | PC.NURSE ---
VIKI ZEPEDA PA-C AT BEDSIDE
[2024-04-15 13:26] VITALS: BP 155/77; PULSE 77; RESP 18; TEMP 37.1; O2SAT 99
--- NOTE | 2024-04-15 13:31 | ED_ITS ---
Discharge Plan Disposition Patient Disposition: Home, Self-Care Condition: Good Prescriptions Prescriptions: New oseltamivir [Tamiflu] 75 mg capsule 75 mg PO BID 5 Days Qty: 10 0RF No Action aspirin 81 mg tablet 81 mg PO DAILY tramadol 50 mg tablet 50 mg PO Q4-6H PRN Patient Comments: TAKE 1 TABLET BY MOUTH EVERY 6 HOURS NEEDED cephalexin 500 mg capsule 1,000 mg PO BID 5 Days Qty: 20 0RF atorvastatin 40 mg tablet See Rx Instructions .ROUTE .COMPLEX Qty: 90 3RF Dose Instruction: Take 1 tablet by mouth once daily Rx Instructions: Take 1 tablet by mouth once daily cyclobenzaprine 5 mg tablet 5 mg PO TID PRN (Reason: muscle spasm) 5 Days Qty: 15 0RF Referrals Follow up/Referrals: Jose Daniel Monreal MD [Primary Care Provider] - See instructions Activity Restrictions/Add. Instructions Additional Instructions/Restrictions: Return to the emerged part with any worsening signs or symptoms take all medications as prescribed. Clinical Impressions Clinical Impression: Influenza A Instructions Patient Instructions: How to Avoid a Cold or Flu, Influenza, DI for Influenza -- Adult Print Language Print Language: Tajik Discharge ED Provider: Ever Nye General Adult HPI <KIM Blue - Last Filed: 04/15/24 13:37> General Chief complaint: Upper Respiratory Infection Stated complaint: cough king ba Time Seen by Provider: 04/15/24 13:11 Mode of Arrival: Ambulatory Source of Information: Patient Limitations: No Limitations Description of Symptoms (Recalled from ER Triage Doc. by RN): PT REPORTS COUGH, CHILLS AND BODY ACHES THAT STARTED LAST NIGHT History of Present Illness HPI narrative: 68-year-old male presents to the emergency department with a 1 day history of cough congestion subjective fever chills, body aches, generalized fatigue and malaise, with no known sick exposure, denies chest pain denies any real shortness of breath abdominal pain nausea vomiting constipation diarrhea no urinary type symptomatology, no hematuria melena hematochezia or hematemesis. Patient is a former smoker, denies any other drug or alcohol use, other past medical history consistent with hyperlipidemia, BPH, osteoarthritis, CAD, status post stent placement. Onset (ago): day(s) Related Data Home Medications ?Medication ?Instructions ?Recorded ?Confirmed aspirin 81 mg tablet 81 mg PO DAILY . 03/12/22 03/02/24 tramadol 50 mg tablet 50 mg PO Q4-6H PRN 11/05/23 03/02/24 Previous Rx's ?Medication ?Instructions ?Recorded cyclobenzaprine 5 mg tablet 5 mg PO TID PRN muscle spasm 5 06/10/23 days #15 tabs cephalexin 500 mg capsule 1,000 mg (2 x 500 mg) PO BID 11/13/23 finger infection prophylaxis 5 days #20 caps atorvastatin 40 mg tablet See Rx Instructions .Route 04/13/24 .COMPLEX #90 tabs oseltamivir 75 mg capsule (Tamiflu) 75 mg PO BID 5 days #10 caps 04/15/24 Allergies Allergy/AdvReac Type Severity Reaction Status Date / Time codeine (CODEINE) AdvReac Mild Nausea Verified 03/02/24 09:00 [facility] <KIM Blue - Last Filed: 04/15/24 13:37> [facility] Disclaimer: The information contained in this section may have been updated after the patient was seen, as this information can be updated by other users. Medical History Hyperlipidemia Coronary artery disease Tobacco user Cardiomyopathy Typical angina LV dysfunction Abnormal electrocardiogram [ECG] [EKG] Chest pain Abnormal result of cardiovascular function study Surgical History History of colonoscopy History of right coronary artery stent placement History of colon resection Family History Other No significant family history Social History Smoking Status: Current every day smoker tobacco type: cigarettes packs per day: 1 second hand exposure: Yes alcohol intake: never substance use type: denies use current occupational status: retired Travel in the last 8 weeks: None household members: significant other housing: house current occupational exposures/hazards: No caffeine: Yes Have you lived/traveled outside [place] in past 30 days?: No Contact w/someone who lives/traveled outside [place] past 30 days?: No Exposure to someone with infectious disease in past 14 days?: No Do you have a fever (greater than 100.4 F or 38 C)?: No Have you tested positive for COVID-19: No Exposed to someone with COVID-19 in past 14 days?: No Do you have a sore throat?: No Do you have a cough?: Yes Do you have any weakness?: No Do you have any diarrhea?: No Are you experiencing any unusual bleeding?: No Do you have any muscle aches/pain?: Yes Do you have any abdominal pain?: No Are you experiencing loss of taste or smell?: No Other Medical History Have you received the Flu Vaccine for this season: No Have you received the Pneumonia Vaccine: Yes <KIM Blue - Last Filed: 04/15/24 13:37> ROS Obtained: Yes All systems reviewed & no additional complaints except as documented Physical Exam <KIM Blue - Last Filed: 04/15/24 13:37> General General appearance: alert and in no apparent distress Head Head exam: atraumatic and normocephalic Eye Eye exam: Present PERRL and EOMI ENT ENT exam: Present mucous membranes moist Neck Neck exam: Present normal inspection Chest Chest inspection: Present normal inspection and symmetric chest wall rise Respiratory Respiratory exam: Present normal lung sounds bilaterally; Absent respiratory distress, wheezes, stridor or accessory muscle use Cardiovascular Cardiovascular exam: Present regular rate and normal rhythm Abdominal Exam Abdominal exam: Present soft; Absent tenderness, guarding, rebound or rigidity Extremities Exam Extremities exam: Present normal inspection Neurological Exam Neurological exam: Present alert and oriented X3 Psychiatric Psychiatric exam: Present normal affect Skin Skin exam: Present warm and dry Medical Decision Making <KIM Blue - Last Filed: 04/15/24 13:37> Medical Records Medical records reviewed: Yes I reviewed the patient's medical records. Screening: Per USPSTF and CDC recommendations, given the prevalence of disease in our region, it is our hospital?s policy to screen for HIV and viral Hepatitis for all patients aged 18 and over and those with ongoing risk factors. Genaro Inquiry Pt receiving controlled substance: No Genaro was queried for this patient: No Vital Signs: 04/15/24 12:21 04/15/24 13:26 Temperature 98.8 F 98.8 F Temperature Source Oral Oral Pulse Rate 77 Pulse Rate [Radial] 79 Respiratory Rate 18 18 Blood Pressure 155/77 H Blood Pressure [Right Arm] 160/80 H Blood Pressure Mean [Right Arm] 106 Blood Pressure Source [Right Arm] Automatic Cuff Blood Pressure Position [Right Arm] Sitting 02 Sat by Pulse Oximetry 95 Oxygen Delivery Method Room Air Room Air Lab Data Lab results reviewed: Yes I reviewed the patient's lab results. Lab Results 04/15/24 12:22: SARS-CoV-2 (PCR) Detected A, Influenza A Untype (PCR) Detected A , Influenza Type B (PCR) Not detected Orders (Tests/Meds): ORDERS Category Date Time Status Rapid PCR Covid and Flu A/B Stat Lab 04/15/24 12:22 Completed Medical Decision Narrative: 68-year-old male presents to the emergency department with URI type symptomatology, differential diagnose include but not limited to acute URI, COVID-19, influenza, bronchitis, pneumonia. Discussed patient case with attending physician Will obtain rapid antigen swabs for COVID-19 and influenza A and B. Patient positive for influenza, COVID-19. Patient has no other signs or symptoms, no concern for respiratory distress or compromise, no wheezing, no Rales, lung exam is benign, oxygen saturation and other vital signs remained stable. Will treat patient with Tamiflu because the patient is within the 72-hour window with risk factors and age. Patient voiced understanding all of the side effects associate with this medication would like to trial this. Shared decision-making was utilized. Patient be discharged home to self-care, recommend [id number] cold and flu type medication as well as other supportive care. Patient will follow-up with PCP as directed. Strict ED return precautions given. Patient voiced understand agree with current treatment plan/discharge plan. <Ever Nye MD - Last Filed: 04/15/24 15:00> Vital Signs: 04/15/24 12:21 04/15/24 13:26 Temperature 98.8 F 98.8 F Temperature Source Oral Oral Pulse Rate 77 Pulse Rate [Radial] 79 Respiratory Rate 18 18 Blood Pressure 155/77 H Blood Pressure [Right Arm] 160/80 H Blood Pressure Mean [Right Arm] 106 Blood Pressure Source [Right Arm] Automatic Cuff Blood Pressure Position [Right Arm] Sitting 02 Sat by Pulse Oximetry 95 Oxygen Delivery Method Room Air Room Air Lab Data Lab Results 04/15/24 12:22: SARS-CoV-2 (PCR) Detected A, Influenza A Untype (PCR) Detected A , Influenza Type B (PCR) Not detected Orders (Tests/Meds): ORDERS Category Date Time Status Rapid PCR Covid and Flu A/B Stat Lab 04/15/24 12:22 Completed Medical Decision Narrative: 68-year-old male presents to the emergency department with URI type symptomatology, differential diagnose include but not limited to acute URI, COVID-19, influenza, bronchitis, pneumonia. Discussed patient case with attending physician Will obtain rapid antigen swabs for COVID-19 and influenza A and B. Patient positive for influenza, COVID-19. Patient has no other signs or sympto ms, no concern for respiratory distress or compromise, no wheezing, no Rales, lung exam is benign, oxygen saturation and other vital signs remained stable. Will treat patient with Tamiflu because the patient is within the 72-hour window with risk factors and age. Patient voiced understanding all of the side effects associate with this medication would like to trial this. Shared decision-making was utilized. Patient be discharged home to self-care, recommend [id number] cold and flu type medication as well as other supportive care. Patient will follow-up with PCP as directed. Strict ED return precautions given. Patient voiced understand agree with current treatment plan/discharge plan. I was consulted by the [facility], and we discussed the complexity of the problems being addressed. I approved the treatment and management plan for this patient's care in the Emergency Department, thus performing a substantive portion of the medical decision making. Ever Nye MD Critical Care <KIM Blue - Last Filed: 04/15/24 13:37> Critical Care Time Critical Care Time: No
== END 2024-04-15 13:32 | disposition home or self-care (01) ==
PROVIDERS: Emergency Provider Emergency Medicine; PCP Family Medicine
DX: J09.X2 Influenza due to identified novel influenza A virus with other respiratory manifestations (principal)
CPT/HCPCS: 87636; 99283

== ENCOUNTER 2024-04-16 11:57 | Emergency (ER) | payer MEDICARE, SELFPAY ==
[2024-04-16 12:07] VITALS: BP 142/76; PULSE 72; RESP 18; TEMP 36.6; O2SAT 94; BMI 27.3
[2024-04-16 12:17] VITALS: BP 146/82; PULSE 77; O2SAT 95
[2024-04-16 12:30] VITALS: BP 137/83; PULSE 76; O2SAT 94
--- NOTE | 2024-04-16 12:41 | XR_ITS ---
FINAL REPORT CLINICAL HISTORY: Shortness of breath COMPARISON: None FINDINGS: No acute pulmonary density is evident. There is no evidence of effusion or other pleural disease. The mediastinum has a normal appearance. The cardiac silhouette is unremarkable. IMPRESSION: Unremarkable chest exam. Reviewed, Interpreted and Dictated by Davon Giles MD Transcribed by Bianca Sawant Authenticated and [facility]
--- NOTE | 2024-04-16 12:41 | CT_ITS ---
FINAL REPORT CLINICAL HISTORY: headache blurry vision FINDINGS: CT NECK ANGIO, WITHOUT AND WITH CONTRAST TECHNIQUE: Thin section axial CT with contrast with multiplanar 3D MIP reconstruction. NASCET criteria and technique was utilized during interpretation. Aortic arch: Arch shows no significant narrowing. Great vessel origins are widely patent. Right carotid: No significant stenosis is seen of the cervical common or internal carotid artery. Left carotid: No significant stenosis is seen of the cervical common or internal carotid artery. Vertebrals: Left vertebral artery is dominant. No significant stenosis is present. IMPRESSION: No significant stenosis of the cervical carotid arteries This study was performed using automated techniques to achieve radiation exposure as low as reasonably Reviewed, Interpreted and Dictated by Davon Giles MD Transcribed by Lesly Jones Authenticated and [facility]
--- NOTE | 2024-04-16 12:41 | CT_ITS ---
FINAL REPORT TECHNIQUE: Noncontrast exam This study was performed with techniques to keep radiation doses as low as reasonably achievable, (ALARA). Individualized dose reduction techniques using automated exposure control or adjustment of mA and/or kV according to the patient's size were employed. CLINICAL HISTORY: head ache blurry vision COMPARISON: None FINDINGS: CT HEAD: There are mild foci of decreased white matter attenuation consistent with mild chronic microvascular changes. Ventricles are normal. There is no hemorrhage. No mass effect is seen. Bone windows show no evidence of fracture. There is mild bilateral mucoperiosteal thickening in the maxillary sinuses bilaterally. IMPRESSION: No acute intracranial abnormality. Mild chronic microvascular changes. Reviewed, Interpreted and Dictated by Davon Giles MD Transcribed by Alicia Oliva Authenticated and [facility]
--- NOTE | 2024-04-16 12:41 | CT_ITS ---
FINAL REPORT CLINICAL HISTORY: headache blurry vision FINDINGS: CTA HEAD TECHNIQUE: Thin section axial CT with contrast with 3D MIP reconstruction No aneurysm is seen. Major intracranial vessels are patent without significant stenosis. IMPRESSION: Unremarkable This study was performed using automated techniques to achieve radiation exposure as low as reasonably achievable Reviewed, Interpreted and Dictated by Davon Giles MD Transcribed by Lesly Jones Authenticated and [facility]
--- NOTE | 2024-04-16 12:46 | ED_ITS ---
<Statement entered by Lara Julien DO - 04/16/24 16:43> I was consulted by the [facility], and we discussed the complexity of the problems being addressed. I approved the treatment and management plan for this patient's care in the emergency department, thus performing a substantive portion of the medical decision making. Lara Julien DO Discharge Plan Disposition Patient Disposition: Home, Self-Care Condition: Good Prescriptions Prescriptions: No Action aspirin 81 mg tablet 81 mg PO DAILY tramadol 50 mg tablet 50 mg PO Q4-6H PRN (Reason: Pain) Patient Comments: TAKE 1 TABLET BY MOUTH EVERY 6 HOURS NEEDED atorvastatin 40 mg tablet See Rx Instructions .ROUTE .COMPLEX Qty: 90 3RF Dose Instruction: Take 1 tablet by mouth once daily Rx Instructions: Take 1 tablet by mouth once daily cyclobenzaprine 5 mg tablet 5 mg PO TID PRN (Reason: muscle spasm) 5 Days Qty: 15 0RF oseltamivir [Tamiflu] 75 mg capsule 75 mg PO BID 5 Days Qty: 10 0RF Referrals Follow up/Referrals: Jose Daniel Monreal MD [Primary Care Provider] - See instructions Activity Restrictions/Add. Instructions Additional Instructions/Restrictions: Today your evaluated in the emergency department and your workup was overall unremarkable. Please increase your fluid intake, take acetaminophen and ibuprofen [id number] for symptomatic relief. Please follow-up with your PCP within 7 days. Return to the ED for worsening of condition. Clinical Impressions Clinical Impression: COVID, Influenza Headache Qualifiers: Headache type: unspecified Headache chronicity pattern: episodic headache I ntractability: not intractable Qualified Code(s): R51.9 - Headache, unspecified Print Language Print Language: Bengali Discharge ED Provider: Lara Julien General Adult HPI <Eliza Waldrop APRN - Last Filed: 04/16/24 16:25> General Chief complaint: Eye Problems Stated complaint: blurry vision, sent by eye dr to have BP checked Time Seen by Provider: 04/16/24 12:34 Mode of Arrival: Ambulatory Source of Information: Patient Limitations: No Limitations Description of Symptoms (Recalled from ER Triage Doc. by RN): Pt presents with c/o intermittent bilateral blurred vision x 3 days. Pt states he has a headache to the front of his head. Rates pain as a 5/10 History of Present Illness HPI narrative: patient is a 68-year-old male PMH HLD, CAD, cardiomyopathy, history of PCI (on aspirin) who presents to the ED for 3 days of intermittent, frontal headache described as pressure and intermittent blurry vision. Patient states that he associates with blurry vision with a headache. He adds that he has had URI symptoms including cough x 3 days. Related Data Home Medications ?Medication ?Instructions ?Recorded ?Confirmed aspirin 81 mg tablet 81 mg PO DAILY . 03/12/22 04/16/24 tramadol 50 mg tablet 50 mg PO Q4-6H PRN Pain 11/05/23 04/16/24 Previous Rx's ?Medication ?Instructions ?Recorded cyclobenzaprine 5 mg tablet 5 mg PO TID PRN muscle spasm 5 06/10/23 days #15 tabs atorvastatin 40 mg tablet See Rx Instructions .Route 04/13/24 .COMPLEX #90 tabs oseltamivir 75 mg capsule (Tamiflu) 75 mg PO BID 5 days #10 caps 04/15/24 Allergies Allergy/AdvReac Type Severity Reaction Status Date / Time codeine (CODEINE) AdvReac Mild Nausea Verified 03/02/24 09:00 [facility] <Eliza Waldrop, SENIOR RESEARCH ENGINEER - Last Filed: 04/16/24 16:25> [facility] Disclaimer: The information contained in this section may have been updated after the patient was seen, as this information can be updated by other users. Medical History Hyperlipidemia Coronary artery disease Tobacco user Cardiomyopathy Typical angina LV dysfunction Abnormal electrocardiogram [ECG] [EKG] Chest pain Abnormal result of cardiovascular function study Surgical History History of colonoscopy History of right coronary artery stent placement History of colon resection Family History Other No significant family history Social History Smoking Status: Former smoker tobacco type: cigarettes packs per day: 1 second hand exposure: Yes alcohol intake: never substance use type: denies use current occupational status: retired Travel in the last 8 weeks: None household members: significant other housing: house current occupational exposures/hazards: No caffeine: Yes Have you lived/traveled outside [place] in past 30 days?: No Contact w/someone who lives/traveled outside [place] past 30 days?: No Exposure to someone with infectious disease in past 14 days?: No Do you have a fever (greater than 100.4 F or 38 C)?: No Have you tested positive for COVID-19: No Exposed to someone with COVID-19 in past 14 days?: No Do you have a sore throat?: No Do you have a cough?: No Do you have any weakness?: No Do you have any diarrhea?: No Are you experiencing any unusual bleeding?: No Do you have any muscle aches/pain?: No Do you have any abdominal pain?: No Are you experiencing loss of taste or smell?: No Other Medical History Have you received the Flu Vaccine for this season: No Have you received the Pneumonia Vaccine: Yes <Eliza Waldrop APRN - Last Filed: 04/16/24 16:25> ROS Obtained: Yes Systems reviewed as appropriate & no additional complaints except as documented Physical Exam <Eliza Waldrop APRN - Last Filed: 04/16/24 16:25> General General appearance: alert and in no apparent distress Head Head exam: atraumatic and normocephalic Eye Eye exam: Present normal appearance, PERRL and EOMI; Absent conjunctival injection, nystagmus, periorbital swelling or periorbital tenderness ENT ENT exam: Present normal exam Neck Neck exam: Present normal inspection, full ROM and trachea midline; Absent tenderness or meningismus Chest Chest inspection: Present normal inspection and symmetric chest wall rise; Absent tenderness Respiratory Respiratory exam: Present normal lung sounds bilaterally and other (cough present ) Cardiovascular Cardiovascular exam: Present regular rate Abdominal Exam Abdominal exam: Present soft and normal bowel sounds; Absent tenderness Extremities Exam Extremities exam: Present normal inspection and full ROM Back Exam Back exam: Present normal inspection and full ROM; Absent tenderness Neurological Exam Neurological exam: Present alert and oriented X3 Psychiatric Psychiatric exam: Present normal affect and normal mood Skin Skin exam: Present warm and dry Medical Decision Making <Eliza Waldrop APRN - Last Filed: 04/16/24 16:25> Medical Records Screening: Per USPSTF and CDC recommendations, given the prevalence of disease in our region, it is our hospital?s policy to screen for HIV and viral Hepatitis for all patients aged 18 and over and those with ongoing risk factors. Genaro Inquiry Pt receiving controlled substance: No Genaro was queried for this patient: No Vital Signs: 04/16/24 12:07 04/16/24 12:17 04/16/24 12:30 Temperature 98 F Temperature Source Oral Pulse Rate 77 76 Pulse Rate [Right] 72 Respiratory Rate 18 Blood Pressure 146/82 H 137/83 Blood Pressure [Right Arm] 142/76 H Blood Pressure Mean [Right Arm] 98 Blood Pressure Source Blood Pressure Source [Right Arm] Automatic Cuff Blood Pressure Position Blood Pressure Position [Right Arm] Sitting 02 Sat by Pulse Oximetry 94 L 95 94 L Oxygen Delivery Method Room Air 04/16/24 13:00 04/16/24 13:45 04/16/24 14:19 Temperature 98.0 F Temperature Source Oral Pulse Rate 117 H 68 68 Pulse Rate [Right] Respiratory Rate 18 Blood Pressure 122/77 123/71 123/71 Blood Pressure [Right Arm] Blood Pressure Mean [Right Arm] Blood Pressure Source Automatic Cuff Blood Pressure Source [Right Arm] Blood Pressure Position Sitting Blood Pressure Position [Right Arm] 02 Sat by Pulse Oximetry 94 L Oxygen Delivery Method Room Air Lab Data Lab Results 04/16/24 12:20: WBC 4.8, RBC 4.89, Hgb 13.9 L, Hct 41.8 L, MCV 85.5, MCH 28.4, MCHC 33.3, RDW 14.2, Plt Count 172, MPV 9.2, Neut % (Auto) 71.5, Lymph % (Auto) 16.8, Carlton % (Auto) 10.7 H, Eos % (Auto) 0.0 L, Baso % (Auto) 0.6, Neut # (Auto) 3.4, Lymph # (Auto) 0.8, Carlton # (Auto) 0.5, Eos # (Auto) 0.0, Baso # (Auto) 0.0, Sodium 131 L, Potassium 4.2, Chloride 98, Carbon Dioxide 28, Anion Gap 9.2, BUN 20, Creatinine 0.80, Estimated Creat Clear 79, Estimated GFR 96, Est GFR ( Amer) 116, Glucose 119 H, Calcium 8.4, Total Bilirubin 0.6, AST 52, ALT 32, Alkaline Phosphatase 96, Troponin I < 0.01, Total Protein 6.9, Albumin 4.3, Globulin 2.6, Albumin/Globulin Ratio 1.7 04/16/24 12:20 04/16/24 12:20 Orders (Tests/Meds): ED MEDICATIONS Discontinued Medications Generic Name Dose Route Start Last Admin Trade Name Dwaine PRN Reason Stop Dose Admin Iopamidol 80 ml 04/16/24 13:37 04/16/24 13:37 Iopamidol-370 (76%);100ml Bottle IV 04/16/24 13:38 80 ml ONCE ONE Administration Sodium Chloride 50 ml 04/16/24 13:37 04/16/24 13:37 0.9 % Sodium Chloride 50 Ml Vial IV 04/16/24 13:38 50 ml ONCE ONE Administration Sodium Chloride 10 ml 04/16/24 13:37 04/16/24 13:37 Sodium Chloride 0.9% 10ml Syr (Rad Only) IV 04/16/24 13:38 10 ml ONCE ONE Administration ORDERS Category Date Time Status CT angio head Stat Cat Scan 04/16/24 12:[address] angio neck Stat Cat Scan 04/16/24 12:[address] head/brain wo con Stat Cat Scan 04/16/24 12:41 Completed CXR 2 view (NOT portable) [XR chest 2V] Stat Exams 04/16/24 12:41 Completed CBC w/Auto Diff [Complete Blood Count Auto Diff] Stat Lab 04/16/24 12:20 Completed CMP [Comprehensive Metabolic Panel] Stat Lab 04/16/24 12:20 Completed Trop I [Troponin I] Stat Lab 04/16/24 12:20 Completed Troponin I Q3H Lab 04/16/24 18:45 Ordered Medical Decision Narrative: In summary, patient is a 68-year-old male PMHx HLD, CAD, cardiomyopathy, history of PCI (on aspirin) who presents to the ED for 3 days of intermittent, frontal headache described as pressure and intermittent blurry vision. Patient states that he associates with blurry vision with a headache. He adds that he had URI symptoms including cough x 3 days. Patient states he went to the eye doctor this morning and they told him things were normal and to come to the ED. Upon initial exam, patient is alert, oriented and cooperative. Patient is hemodynamically stable. Physical exam remarkable for PERRLA, no nystagmus. Denies fever, chills, chest pain, abdominal pain, flank pain, dysuria. Differential diagnosis includes ACS, pneumonia, pneumothorax, ICH, mass, ischemia, severe stenosis, infectious process, among others Initial workup will be conducted with hematologic labs, imaging. Records reviewed, patient tested positive for COVID and influenza yesterday. Initial workup reviewed by me. Hematologic labs remarkable for CBC unremarkable for any leukocytosis, stable H&H. CMP unremarkable for any actionable abnormalities. First troponin <0.01. I informally interpreted the imaging as no acute cardiopulmonary process. See final read. CT head final read unremarkable for any acute intracranial process. CTA head unremarkable for any acute intracranial process. CTA neck unremarkable for any acute stenosis. I considered additional testing but deferred due to patient remains asymptomatic and workup is unremarkable. Given these findings, patient is appropriate for discharge at this time. Advised that he most likely has headache related to COVID and influenza. Discussed taking acetaminophen and ibuprofen [id number] for symptomatic relief. Discussed following up with PCP within 7 days. We discussed return precautions to the ED. Patient was ambulatory without difficulty in the ED. <Lara Julien, DO - Last Filed: 04/16/24 15:24> Vital Signs: 04/16/24 12:07 04/16/24 12:17 04/16/24 12:30 Temperature 98 F Temperature Source Oral Pulse Rate 77 76 Pulse Rate [Right] 72 Respiratory Rate 18 Blood Pressure 146/82 H 137/83 Blood Pressure [Right Arm] 142/76 H Blood Pressure Mean [Right Arm] 98 Blood Pressure Source Blood Pressure Source [Right Arm] Automatic Cuff Blood Pressure Position Blood Pressure Position [Right Arm] Sitting 02 Sat by Pulse Oximetry 94 L 95 94 L Oxygen Delivery Method Room Air 04/16/24 13:00 04/16/24 13:45 04/16/24 14:19 Temperature 98.0 F Temperature Source Oral Pulse Rate 117 H 68 68 Pulse Rate [Right] Respiratory Rate 18 Blood Pressure 122/77 123/71 123/71 Blood Pressure [Right Arm] Blood Pressure Mean [Right Arm] Blood Pressure Source Automatic Cuff Blood Pressure Source [Right Arm] Blood Pressure Position Sitting Blood Pressure Position [Right Arm] 02 Sat by Pulse Oximetry 94 L Oxygen Delivery Method Room Air Lab Data Lab Results 04/16/24 12:20: WBC 4.8, RBC 4.89, Hgb 13.9 L, Hct 41.8 L, MCV 85.5, MCH 28.4, MCHC 33.3, RDW 14.2, Plt Count 172, MPV 9.2, Neut % (Auto) 71.5, Lymph % (Auto) 16.8, Carlton % (Auto) 10.7 H, Eos % (Auto) 0.0 L, Baso % (Auto) 0.6, Neut # (Auto) 3.4, Lymph # (Auto) 0.8, Carlton # (Auto) 0.5, Eos # (Auto) 0.0, Baso # (Auto) 0.0, Sodium 131 L, Potassium 4.2, Chloride 98, Carbon Dioxide 28, Anion Gap 9.2, BUN 20, Creatinine 0.80, Estimated Creat Clear 79, Estimated GFR 96, Est GFR ( Amer) 116, Glucose 119 H, Calcium 8.4, Total Bilirubin 0.6, AST 52, ALT 32, Alkaline Phosphatase 96, Troponin I < 0.01, Total Protein 6.9, Albumin 4.3, Globulin 2.6, Albumin/Globulin Ratio 1.7 Orders (Tests/Meds): ED MEDICATIONS Discontinued Medications Generic Name Dose Route Start Last Admin Trade Name Freq PRN Reason Stop Dose Admin Iopamidol 80 ml 04/16/24 13:37 04/16/24 13:37 Iopamidol-370 (76%);100ml Bottle IV 04/16/24 13:38 80 ml ONCE ONE Administration Sodium Chloride 50 ml 04/16/24 13:37 04/16/24 13:37 0.9 % Sodium Chloride 50 Ml Vial IV 04/16/24 13:38 50 ml ONCE ONE Administration Sodium Chloride 10 ml 04/16/24 13:37 04/16/24 13:37 Sodium Chloride 0.9% 10ml Syr (Rad Only) IV 04/16/24 13:38 10 ml ONCE ONE Administration ORDERS Category Date Time Status CT angio head Stat Cat Scan 04/16/24 12:[address] angio neck Stat Cat Scan 04/16/24 12:[address] head/brain wo con Stat Cat Scan 04/16/24 12:41 Completed CXR 2 view (NOT portable) [XR chest 2V] Stat Exams 04/16/24 12:41 Completed CBC w/Auto Diff [Complete Blood Count Auto Diff] Stat Lab 04/16/24 12:20 Completed CMP [Comprehensive Metabolic Panel] Stat Lab 04/16/24 12:20 Completed Trop I [Troponin I] Stat Lab 04/16/24 12:20 Completed Troponin I Q3H Lab 04/16/24 18:45 Ordered ECG Data Tracing #1: I reviewed this ECG and interpreted as documented below: Normal sinus rhythm with a ventricular rate of 71 bpm. Right bundle branch block. Left anterior fascicular block. No acute STEMI. Normal QTc ECG initial impression date: 04/16/24 ECG initial impression time: 13:10 Critical Care <Eliza Waldrop APRN - Last Filed: 04/16/24 16:25> Critical Care Time Critical Care Time: No
[2024-04-16 12:51] LABS: Basophils % 0.6 % (0.1-2.0); Hematocrit 41.8 % (42.0-52.0); Hemoglobin 13.9 g/dL (14.1-18.0); Lymphocytes # 0.8 K/mm3 (0.7-4.5); Lymphocytes % 16.8 % (10-50); Mean Corpuscular HGB Conc 33.3 g/dL (31.8-35.4); Mean Corpuscular Hemoglobin 28.4 pg (27.0-31.2); Mean Corpuscular Volume 85.5 fl (80-94); Mean Platelet Volume 9.2 fl (7.4-10.4); Monocytes # 0.5 K/mm3 (0.1-1.0); Monocytes % 10.7 % (1.7-9.3); Neutrophils # 3.4 K/mm3 (1.8-7.8); Neutrophils % 71.5 % (37.0-80.0); Platelet Count 172 K/mm3 (142-424); Red Blood Count 4.89 M/mm3 (4.60-6.20); Red Cell Distribution Width 14.2 % (11.5-17.5); White Blood Count 4.8 K/mm3 (4.8-10.8)
[2024-04-16 12:58] LABS: Alanine Aminotransferase 32 U/L (12-78); Albumin Level 4.3 g/dl (3.5-5.0); Albumin/Globulin Ratio 1.7 (1.1-1.8); Alkaline Phosphatase 96 U/L (38-126); Anion Gap 9.2 mEq/L (5-15); Aspartate Amino Transferase 52 U/L (17-59); Bilirubin,Total 0.6 mg/dl (0.2-1.3); Blood Urea Nitrogen 20 mg/dl (9-20); Calcium 8.4 mg/dl (8.4-10.2); Carbon Dioxide 28 mmol/L (22.0-30.0); Chloride 98 mmol/L (98-107); Creatinine Clearance Estimated 79 mL/min (50-200); Estimated Glomerular Filt Rate 96 ml/min (>60); GFR (African American) 116 ML/MIN (>60); Globulin 2.6 g/dL (1.3-3.2); Glucose 119 mg/dl (74-100); Potassium 4.2 mmoL/L (3.5-5.1); Sodium 131 mmol/L (136-145); Total Protein,Serum 6.9 g/dl (6.3-8.2)
[2024-04-16 13:00] VITALS: BP 122/77; PULSE 117; O2SAT 94
--- NOTE | 2024-04-16 13:08 | ECG_ITS ---
APPROVED REPORT Exam: Resting ECG HR:71 bpm ECG Measurements Heart Rate 71 AXES MI 131 P 78 QRSd 122 QRS -69 QT 401 T 51 QTc 424 Conclusion SINUS RHYTHM RIGHT BUNDLE BRANCH BLOCK [120+ ms QRS DURATION, UPRIGHT V1, 40+ ms S IN I/aVL/V4/V5/V6] LEFT ANTERIOR FASCICULAR BLOCK [QRS AXIS <= -45, QR IN I, RS IN II] No STEMI Electronically signed by : ROBSON RIVERA, 04/17/2024 07:08:07
[2024-04-16 13:13] LABS: Troponin I < 0.01 ng/ml (0.00-0.034)
--- NOTE | 2024-04-16 13:33 | PC.NURSE ---
pt to ct
--- NOTE | 2024-04-16 13:36 | PC.NURSE ---
pt returned from ct
[2024-04-16] MEDS: 0.9 % SODIUM CHLORIDE 50 ML VIAL IV (13:37)
[2024-04-16] MEDS: IOPAMIDOL-370 (76%);100ML BOTTLE 80 ML IV (13:37)
[2024-04-16] MEDS: SODIUM CHLORIDE 0.9% 10ML SYR (RAD ONLY) 10 ML IV (13:37)
[2024-04-16 13:45] VITALS: BP 123/71; PULSE 68
--- NOTE | 2024-04-16 14:06 | PC.NURSE ---
rounded on the pt. the pt voices that he does not need anything at this time. call light is within reach of the pt. family member is present at the bedside.
--- NOTE | 2024-04-16 14:14 | PC.NURSE ---
rajiv pa-c at bedside to update pt and family
[2024-04-16 14:19] VITALS: BP 123/71; PULSE 68; RESP 18; TEMP 36.7; O2SAT 95
== END 2024-04-16 14:25 | disposition home or self-care (01) ==
PROVIDERS: Nurse Practitioner; Emergency Provider Emergency Medicine; PCP Family Medicine
DX: U07.1 COVID-19 (principal); J11.1 Influenza due to unidentified influenza virus with other respiratory manifestations; H53.8 Other visual disturbances; R51.9 Headache, unspecified; R05.9 Cough, unspecified; Z87.891 Personal history of nicotine dependence
CPT/HCPCS: 70450; 70496; 70498; 71046; 80053; 84484; 85025; 93005; 99285; Q9967

== ENCOUNTER 2024-05-13 06:41 | Day surgery (SDC) | payer MEDICARE, SELFPAY ==
[2024-05-11 16:19] VITALS: BMI 28.8
[2024-05-13] VITALS (7 sets, daily range): BP systolic 72–132; BP diastolic 43–77; PULSE 56–71; RESP 14–18; TEMP 36.2–36.3; O2SAT 93–99
[2024-05-13] MEDS: LACTATED RINGERS 1000ML 1,000 ML 50 ML IV (08:13)
--- NOTE | 2024-05-13 08:41 | EXP.HP ---
History of Present Illness *Admission Date: 05/13/24 *Reason for visit:: Personal history of adenomatous colon polyps *History of present illness: Mr. Daniel is a 68-year-old gentleman who is here for surveillance colonoscopy secondary to a personal history of adenomatous colon polyps. The examination is deemed medically necessary for surveillance colonoscopy. The patient has been seen, interviewed and examined prior to the procedure by both myself and the anesthesia provider. [facility] Disclaimer: The information contained in this section may have been updated after the patient was seen, as this information can be updated by other users. Medical History (Updated 05/13/24 @ 08:43 by Chun Lal II, MD) Pre-op exam Hyperlipidemia Coronary artery disease Tobacco user Cardiomyopathy Typical angina LV dysfunction Abnormal electrocardiogram [ECG] [EKG] Chest pain Abnormal result of cardiovascular function study Surgical History History of colonoscopy History of right coronary artery stent placement History of colon resection Family History Other No significant family history Social History Smoking Status: Former smoker tobacco type: cigarettes packs per day: 1 second hand exposure: Yes alcohol intake: never substance use type: denies use current occupational status: retired Travel in the last 8 weeks: None household members: significant other housing: house current occupational exposures/hazards: No caffeine: Yes Have you lived/traveled outside [place] in past 30 days?: No Contact w/someone who lives/traveled outside US past 30 days?: No Exposure to someone with infectious disease in past 14 days?: No Do you have a fever (greater than 100.4 F or 38 C)?: No Have you tested positive for COVID-19: No Exposed to someone with COVID-19 in past 14 days?: No Do you have a sore throat?: No Do you have a cough?: No Do you have any weakness?: No Do you have any diarrhea?: No Are you experiencing any unusual bleeding?: No Do you have any muscle aches/pain?: No Do you have any abdominal pain?: No Are you experiencing loss of taste or smell?: No Other Medical History Have you received the Flu Vaccine for this season: No Have you received the Pneumonia Vaccine: Yes Review of Systems Review of Systems Review of systems (narrative): Negative *Cardiovascular Comments: Negative *Gastrointestinal Comments: Negative *Genitourinary Comments: Negative *Musculoskeletal Comments: Negative *Neurologic Comments: Negative Meds Home Medications and Allergies Home Medications ?Medication ?Instructions ?Recorded ?Confirmed ?Type aspirin 81 mg tablet 81 mg PO DAILY . 03/12/22 05/13/24 History tramadol 50 mg tablet 50 mg PO Q4-6H PRN Pain 11/05/23 05/13/24 History atorvastatin 40 mg tablet 40 mg PO DAILY 05/13/24 05/13/24 History New Prescriptions to Start Prescriptions: Allergies Allergy/AdvReac Type Severity Reaction Status Date / Time codeine (CODEINE) AdvReac Mild Nausea Verified 05/13/24 08:03 Exam Data for Last 24 hours Vital signs and Labs for Last 24 Hours: Temp Pulse Resp BP Pulse Ox O2 Del Method 97.2 F L 71 18 132/72 94 L Room Air 05/13/24 08:05 05/13/24 08:05 05/13/24 08:05 05/13/24 08:05 05/13/24 08:05 05/13/24 08:05 I & O for Last 24 hours: Intake & Output 05/10/24 05/11/24 05/12/24 05/13/24 23:59 23:59 23:59 23:59 Weight 195 lb *Routine HEENT Exam Head: Present normocephalic Eye: Present EOMI and PERRL ENT: Present mucous membranes moist *Routine Neck Exam Neck: Present supple *Routine Respiratory Exam Respiratory: Present CTA bilaterally *Routine Cardiovascular Exam Cardiovascular: Present RRR *Routine Abdominal Exam Abdominal: Present soft and normoactive bowel sounds; Absent tenderness *Routine Rectal Exam Rectal:: deferred *Routine Genitalia Exam Genitalia:: deferred *Routine Extremities Exam Extremities: Absent cyanosis, clubbing or edema *Routine Skin Exam Skin: Present warm; Absent rash *Routine Neurological Exam Neurological: Present alert and oriented X3 Assessment and Plan *Assessment and plan (1) Personal history of adenomatous and serrated colon polyps: Status: Acute Category: Medical Code(s): Z86.0101 - Personal history of adenomatous and serrated colon polyps Plan A/P: 1. Personal history of adenomatous colon polyps is the preprocedural diagnosis. The patient will be anesthetized/sedated using MAC sedation. The patient has been seen and examined. Cardiac and lung assessment prior to the examination is stable. Proceed with planned surveillance colonoscopy
--- NOTE | 2024-05-13 08:44 | P.PNANES_ITS ---
[facility] Disclaimer: The information contained in this section may have been updated after the patient was seen, as this information can be updated by other users. Medical History (Updated 05/13/24 @ 08:43 by Chun Lal II, MD) Pre-op exam Hyperlipidemia Coronary artery disease Tobacco user Cardiomyopathy Typical angina LV dysfunction Abnormal electrocardiogram [ECG] [EKG] Chest pain Abnormal result of cardiovascular function study Surgical History History of colonoscopy History of right coronary artery stent placement History of colon resection Family History Other No significant family history Social History Smoking Status: Former smoker tobacco type: cigarettes packs per day: 1 second hand exposure: Yes alcohol intake: never substance use type: denies use current occupational status: retired Travel in the last 8 weeks: None household members: significant other housing: house current occupational exposures/hazards: No caffeine: Yes Have you lived/traveled outside US in past 30 days?: No Contact w/someone who lives/traveled outside US past 30 days?: No Exposure to someone with infectious disease in past 14 days?: No Do you have a fever (greater than 100.4 F or 38 C)?: No Have you tested positive for COVID-19: No Exposed to someone with COVID-19 in past 14 days?: No Do you have a sore throat?: No Do you have a cough?: No Do you have any weakness?: No Do you have any diarrhea?: No Are you experiencing any unusual bleeding?: No Do you have any muscle aches/pain?: No Do you have any abdominal pain?: No Are you experiencing loss of taste or smell?: No [facility] Anesthesia Checklist Patient Identification Patient Identification: Arm Band Structural Data Admitted From: Home Planned Operative Procedure/s: Colonoscopy Consent for Planned Operative Procedure(s) Verified: Yes Verified Documents: Surgical Consent and History and Physical NPO Status Verified Time NPO: 04:00 (finished prep) Additional verifications Anesthesia Reactions: No Hx Blood Transfusions: No Blood Transfusion Reaction: No Airway Assessment Mallampati Score:: Class II C-Spine Mobility Assessed: Yes TMJ Mobility Assessed: Yes Dentition: Good Dentition Neurological Assessment Level of Consciousness: Awake, Alert and Appropriate Anesthesia Plan Anesthesia Risk discussed: Yes Anesthesia Plan: Verified ASA Class: III Anesthesia Type: MAC
--- NOTE | 2024-05-13 08:53 | HMH.PROCNOTE ---
[facility] Procedure Note Date: 05/13/24 Time: 09:09 Procedure Note:: Colonoscopy Procedure Report: Colonoscopy with cold snare polypectomy Endoscopist: Chun Lal II, MD Referring physician: Pola Monreal MD Date of Procedure: May 13, 2024 Equipment: Olympus 190 variable stiffness pediatric colonoscope Sedation: MAC sedation Indication: Mr. 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 I had done colonoscopy in July 2019 and found multiple adenomatous polyps including the large cecal tubulovillous adenoma. The patient did have a repeat surveillance colonoscopy in October 2020 and had 3 polyps (tubular adenoma x 1/hyperplastic polyps x 2) removed. He reports no abdominal pain, weight loss, change in his bowel habits or rectal bleeding. He reports no family history of colon cancer. He does have some chronic constipation. Procedure: Prior to the procedure, a history and physical exam was performed, and patient's medications and allergies were reviewed. The risks, benefits and alternatives of the sedation and procedure were discussed with the patient. All questions were answered and informed consent was obtained. The patient was brought to the procedure room. Patient identification and proposed procedure were verified by the physician and the nurse. The patient was placed in a left lateral decubitus position and the scope was passed under direct vision. Throughout the procedure, the patient's blood pressure, pulse, and oxygen saturations were monitored continuously. The colonoscopy was accomplished without difficulty. The patient tolerated the procedure well. Findings: On digital rectal examination there was normal rectal tone. There were no external hemorrhoids. There were small external hemorrhoidal tags. The prostate was 2+, mildly firm but symmetric without nodules. The colonoscope was introduced through the anal canal to the rectum and advanced to the ileocolonic anastomosis. This was a normal [id number] ileocolonic anastomosis. The scope was advanced a short distance into the ileum which appeared normal. The scope was then withdrawn into the colon. There was a single diminutive 3 to 4 mm polyp in the transverse colon removed via cold snare polypectomy. There were scattered diverticuli throughout the descending and sigmoid colon (LEFT colon). The rectum itself was normal. Upon retroflexion within the rectum there were grade 2-3 internal hemorrhoids. The preparation was excellent throughout with [place] Preparation Score of 9. Impression: 1. Diminutive 3 to 4 mm transverse polyp 2. Left-sided diverticulosis 3. Prior right hemicolectomy with normal ileocolonic anastomosis 4. Grade 2-3 internal hemorrhoids Plan: I will follow-up the polyp histology and recommend repeat surveillance colonoscopy again in 5 years. I would encourage psyllium bulking fiber supplementation on a long-term daily maintenance basis.
== END 2024-05-13 10:02 | disposition home or self-care (01) ==
PROVIDERS: PCP Family Medicine; Visit Provider Internal Medicine Gastroenterology
PROC: 0DJD8ZZ Inspection of Lower Intestinal Tract, Via Natural or Artificial Opening Endoscopic (ICD-10-PCS; CPT 45378; principal; 2024-05-13 08:30)
DX: K63.5 Polyp of colon (principal); K57.30 Diverticulosis of large intestine without perforation or abscess without bleeding; K64.9 Unspecified hemorrhoids; Z86.0101 Personal history of adenomatous and serrated colon polyps; K59.09 Other constipation
CPT/HCPCS: 45385; J7120

== ENCOUNTER 2024-08-07 18:10 | Emergency (ER) | payer MEDICARE, SELFPAY ==
--- OUTSIDE RECORDS SUMMARY | 2024-04-20 05:30 | XMS_ITS ---
Author Organization [facility] Address [address] [id number] Care Team Providers Care Substitute Teacher Name Role Phone Daljit Monreal Primary Care Provider Ricky Monae Unavailable [phone] Allergies Allergen (clinical drug ingredient) Drug/Non Drug Allergy documented on EMR Reaction Allergy Type Onset Date Status Bee Sting Unknown Allergy Active codeine Codeine abdominal pain Drug Allergy Ac tive Results Component Value Reference Range Notes Influenza Screen (in house) Reviewed date:04/20/2024 10:56:19 AM Interpretation: Performing Lab: Notes/Report: results Neg CBC Fingerstick (in house) Reviewed date:04/20/2024 10:56:31 AM Interpretation: Performing Lab: Notes/Report: wbc 3.9 3.5 - 10 lym 25.4% 15 - 50 mid 4.9% 2 - 15 gran 69.7% 35 - 80 rbc 4.93 3.5 - 5.5 hgb 14.0 11.5 - 16.5 hct 42.7 35 - 55 mcv 86.7 75 - 100 mch 28.5 25 - 35 mchc 32.8 31 - 38 plat 84 100 - 400 Covid test (in house) Reviewed date:04/20/2024 10:56:39 AM Interpretation: Performing Lab: Notes/Report: Result: Neg REASON FOR VISIT cough & congestion Medications Medication SIG (Take, Route, Frequency, Duration) Notes Start Date End Date Status Atorvastatin Calcium 40 MG 1 tablet Oral ly Once a day Active Aspir-Low 81 MG 1 tablet Orally Once a day Active traMADol HCl 50 MG 1 tab(s) Orally q6h prn 024 Active MiraLax 17 GM/SCOOP 1 scoop mixed with 8 ounces of fluid Orally Once a day for 30 day(s) 01/28/2024 Active Azithromycin 500 MG 1 tablet Orally once daily 04/20/2024 Active Cefdinir 300 MG as directed Orally T wo times a day 04/20/2024 Active Medrol 4 MG as directed orally d aily for 6 days 04/20/2024 Active Albuterol Sulfate HFA 108 (90 Base) MCG/ACT 2 inhalations Inhalation four times a day as needed 04/20/2024 Active Trelegy Ellipta 200-62.5-25 MCG/ACT 1 puff Inhalation Once a day 04/20/2024 Active Vital Signs Blood pressure systolic 114 mm Hg 04/21/19 25 Blood pressure diastolic 70 mm Hg 025 Heart Rate 74 /min 04/20/2024 Height 69 in 04/20/2024 Weight 195.4 lbs 04/20/2024 BMI 28.85 kg/m2 04/20/2024 Encounters Encounter Location Date Provider Diagnosis [facility] [address], [place] [id number] 04/20/2024 Ricky Monae Acute bronchitis, unspecified organism J20.9 ; Chronic obstructive pulmonary disease, unspecified COPD type J44.9 and Tobacco use disorder F17.200 Assessments Encounter Date Diagnosis (ICD Code) Assessment Notes Treatment Notes Treatment Clinical Notes Section Notes 04/20/2024 Acute bronchitis, unspecified organism (ICD-10 - J20.9) Trelegy sample given 04/20/2024 Chronic obstructive pulmonary disease, unspecified COPD type (ICD-10 - J44.9) 04/20/2024 Tobacco use disorder (ICD-10 - F17.200) Plan Of Treatment Medication Medication Name Sig Start Date Stop Date Notes Azithromycin 500 MG 1 tablet Orally once daily 04/20/2024 Cefdinir 300 MG as directed Orally T wo times a day 04/20/2024 Medrol 4 MG as directed orally d aily for 6 days 04/20/2024 Albuterol Sulfate HFA 108 (9 0 Base) MCG/ACT 2 inhalations Inhalation four times a day as needed 04/20/2024 Trelegy Ellipta 200-62.5-25 MCG/ACT 1 puff Inhalation Once a day 04/20/2024 Treatment Notes Assessment Notes Acute bronchitis, unspecified organism T relegy sample given Next Appt Details Follow Up: Saturday, Reason: Provider Name:Daljit Allen, 11/19/2024 09:15:00 AM, [address], [address], [place], [place], [id number], Progress Notes * Lacho KINGDOB: [birth year] (69 yo M)Acc No.[id number]:04/20/2024 Progress Notes Patient: Lacho BARRIENTOS Provider: Ricky Monae M.D. :1955 A ge:68 Y S ex:Male Date:04/20/2024 Address:[address] [place] [address] BRENDA Sahni [id number] Pcp:Daljit Monreal Subjective: * Chief Complaints: * 1 . Cough & congestion. * HPI: E NT/respiratory: The patient is here today with c/o cough and congestion for about 5 days. Pt states he is coughing up white sputum and is having wheezing and shortness of breath. has been off cigarettes for 10 days. 68 year old male presents with c/o cough. c/o Short of Breath. Denies : sore throat. D enies : Fever. D enies : Chest Pain. * ROS: D ERMATOLOGY: no R muriel. n o H carrie. G ASTROENTEROLOGY: no N ausea. n o V omiting. n o D iarrhea.? U ROLOGY: no D ifficulty urinating. n o B lood in urine. * Medical History: T obacco addiction, Osteo Arthritis, ASCVD - s/p right coronary artery stent, Cardiomyopathy, Kidney stone. * Surgical History: H ernia Repair X 2 , vascetomy , index finger of left hand cut off by sprocket , scope of right knee , repair of right hand laceration 2016, Right hemicolectomy/large tubulovillous adenoma of the cecum/Dr. Casillas 07/2019, C-scope/ Lal/ polyp x 3/ 3yr f/u recommended 10/28/2020, Coronary stents - Jigar 04/2022. * Family History: F ather: alive 95 yrs, open heart surgery, stomach problems, diagnosed with Hypertension. M other: 77 yrs, COPD, emphasema. 3 brother(s) , 4 sister(s) . 1 daughter(s) . . 2 brothers with CAD. * Social History: C URRENT TOBACCO USE: Yes S moking Status: P atient does smoke, p acks per day:?1, n umber of cigarettes per day: 1 0, S oral age of: 1 2, S moking preference: c igarettes. C affeine: yes, frequency:. Home smoke detector use: yes. Alcohol: Yes, Type: , Frequency: ,Years: , Determination: hot toddy in the winter time. * Medications: T aking Atorvastatin Calcium 40 MG Tablet 1 tablet Orally Once a day , Taking Aspir-Low 81 MG Tablet Delayed Release 1 tablet Orally Once a day , Taking traMADol HCl 50 MG Tablet 1 tab(s) Orally q6h prn , Taking MiraLax 17 GM/SCOOP Powder 1 scoop mixed with 8 ounces of fluid Orally Once a day , Discontinued Albuterol Sulfate HFA 108 (90 Base) MCG/ACT Aerosol Solution 1 puff as needed Inhalation every 4 hrs prn , Discontinued Mucinex DM Maximum Strength 60-1200 MG Tablet Extended Release 12 Hour 1 tablet as needed Orally every 12 hrs , Discontinued Cefuroxime Axetil 500 MG Tablet 1 tablet Orally every 12 hrs , Medication List reviewed and reconciled with the patient * Allergies: C odeine: abdominal pain, Bee Sting. Objective: * Vitals: W t:195.4, Temp:98.8, BP:114/70, HR:74, O2 Sat:87% on RA, Nurse:EMELY, Ht: 69, BMI:28.85. * Examination: G eneral Examination: General Appearance: N AD. HEENT: u nremarkable. Oral cavity: n o lesions, mucosa moist and WNL, no erythema. Neck: s upple, no lymphadenopathy. Chest: n ormal shape and expansion. Heart: R SR. Lungs: decreased breath sounds, no wheezes or rales, Sats up to 90% with use of Trelegy and deep breaths. No respiratory distress.. Neurologic Exam: I ntact, gait normal. Skin: n ormal, no rash. Peripheral pulses: n ormal . Extremities: n o leg edema. Assessment: * Assessment: 1. A cute bronchitis, unspecified organism - J20.9 (Primary) 2 . C hronic obstructive pulmonary disease, unspecified COPD type - J44.9 3 . T obacco use disorder - F17.200 Plan: * Treatment: Value Reference Range r esults Neg * Gem King 04/20/2024 9:23 :25 AM > , Provider reviewed results while patient in office. ?LAB: CBC Fingerstick (in house) (Collection Date & Time - 04/20/2024)* Value Reference Range w bc 3.9 3.5 - 10 * l ym 25.4% 15 - 50 * m id 4.9% 2 - 15 * g ran 69.7% 35 - 80 * r bc 4.93 3.5 - 5.5 * h gb 14.0 11.5 - 16.5 * h ct 42.7 35 - 55 * m cv 86.7 75 - 100 * m ch 28.5 25 - 35 * m chc 32.8 31 - 38 * p lat 84 100 - 400 * Gem King 04/20/2024 9:21 :49 AM > , Provider reviewed results while patient in office. ?LAB: Covid test (in house) (Collection Date & Time - 04/20/2024)* Value Reference Range R esult: Neg * Gem King 04/20/2024 9:21 :24 AM > , Provider reviewed results while patient in office. Notes: Trelegy sample given?? * Procedure Codes: G 2211 Complex e/[place], [address] [place], [address] Flu Test- Nasal Swab, Modifiers: QW , 89043 COVID TEST IN HOUSE, Modifiers: QW , 674[address] CAPILLARY BLOOD DRAW, 89520 CBC WITH AUTO DIFF, 3074F SYST BP LT 130 MM HG, 3078F DIAST BP < 80 MM HG * Follow Up: F riday * Billing Information: * Visit Code: 59666 Office Visit, Est Pt., Level 4. * Procedure Codes: G2211 Complex e/[place] [address] [place]. [address] Flu Test- Nasal Swab. Modifiers: QW 01268 COVID TEST IN HOUSE. Modifiers: QW 96917 CAPILLARY BLOOD DRAW. 60371 CBC WITH AUTO DIFF. 3074F SYST BP LT 130 MM HG. 3078F DIAST BP < 80 MM HG. * Electronic signature of Ricky Monae MD on 08/07/2024 at 06:17 PM EDT Sign off status: Pending * Provider: Ricky Monae M.D. Date: 0 04/20/2024 Generated for Paulie godwin/Paco/Asifitting on: 0 08/07/2024 06:17 PM EDT History and Physical Notes * HPI (History of Present Illness) Category Sub-Category Detail Notes Category Not es ENT/respiratory sore throat Short of Breath Chest Pain cough Fever Examination Category Sub-Category Detail Notes Category Not es General Examination HEENT: unremarkable Heart: RSR Lungs: decreased breath juliano nds, no wheezes or rales, Sats up to 90% with use of Trelegy and deep breaths. No respiratory distress. Extremities: no leg edema General Appearance: NAD Skin: normal, no rash Neurologic Exam: Intact, gait normal Neck: supple, no lymphaden opathy Oral cavity: no lesions, mucosa m oist and WNL, no erythema Peripheral pulses: normal Chest: normal shape and exp ansion
--- OUTSIDE RECORDS SUMMARY | 2024-04-24 06:45 | XMS_ITS ---
Author Organization [facility] Address [address] [facility] [address] [id number] Care Team Providers Care Teletype Operator Name Role Phone Daljit Monreal Primary Care Provider [phone] Ricky Monae Unavailable [phone] Allergies Allergen (clinical drug ingredient) Drug/Non Drug [...] d aily for 6 days 04/20/2024 Active traMADol HCl 50 MG 1 tab(s) Orally q6h prn 024 Active Aspir-Low 81 MG 1 tablet Orally Once a day Active Atorvastatin Calcium 40 MG 1 tablet Oral ly Once a day Active MiraLax 17 GM/SCOOP 1 scoop mixed with 8 ounces of fluid Orally Once a day for 30 day(s) 01/28/2024 Active Problems Problem Type SNOMED Code ICD Code Onset Dates Problem Status W/U Status Risk Notes Problem [id number] COPD with exacerbation (J44.1) Active confirmed Vital Signs Blood pressure systolic 124 mm Hg 04/25/19 25 Blood pressure diastolic 72 mm Hg 025 Heart Rate 67 /min 04/24/2024 Height 69 in 04/24/2024 Weight 194.2 lbs 04/24/2024 BMI 28.68 kg/m2 04/24/2024 Encounters Encounter Location Date Provider Diagnosis [facility] [address] [facility] 36 [facility] [address] [place] [phone] 04/24/2024 Ricky Monae COPD with exacerbati on [...] Dr. Quique rowley, Reason: Provider Name:Daljit Allen, 11/19/2024 09:15:00 AM, [address] [facility] 36 [facility], [address], [place], [id number], Progress Notes * Lacho KING TOMDOB: [birth year] (69 yo M)Acc No.[id number]:04/24/2024 Progress Notes Patient: Lacho BARRIENTOS Provider: Ricky Monae M.D. :1955 A ge:68 Y S ex:Male Date:04/24/2024 Address:[address] [place] [address] Daljit Mar BRENDA [id number] Pcp:Daljit Monreal Subjective: * Chief Complaints: * [...] of: 1 2, S moking preference: c hasmukh. C affeine: yes, frequency:. Home smoke detector [...] shape and expansion. Heart: R SR. Lungs: d ecreased breath sounds, expiratory wheezes. Neurologic Exam: I ntact, gait normal. Skin: n ormal, no rash. Peripheral pulses: n ormal . Extremities: n o leg edema. Assessment: * Assessment: 1. C OPD with exacerbation - J44.1 (Primary) Plan: * Treatment: * Procedure Codes: G 2211 Complex e/[place], [address] [place], 3074F SYST BP LT 130 MM HG, 3078F DIAST BP < 80 MM HG * Follow Up: [address] Monreal * Billing Information: * Visit Code: 76346 Office Visit, Est Pt., Level 3. * Procedure Codes: G2211 Complex e/[place]. [address] [place]. 3074F SYST BP LT 130 MM HG. 3078F DIAST BP < 80 MM HG. * Electronic signature of Ricky Monae MD on 08/07/2024 at 06:17 PM EDT Sign off status: Pending * Provider: Ricky Monae M.D. Date: 0 04/24/2024 Generated for Paulie godwin/Paco/eTransmitting on: 0 08/07/2024 06:17 PM EDT History [...]
--- OUTSIDE RECORDS SUMMARY | 2024-05-19 06:45 | XMS_ITS ---
[facility] Address [address] [facility] [address] [place] [id number] Care Team Providers Care International Tax Manager Name Role Phone Daljit Monreal Primary Care Provider Allergies Allergen (clinical drug ingredient) Drug/Non Drug Allergy documented on EMR Reaction Allergy Type Onset Date Status Bee Sting Unknown Allergy Active codeine Codeine abdominal pain Drug Allergy Ac tive REASON FOR VISIT F/U Medications Medication SIG (Take, Route, Frequency, Duration) Notes Start Date End Date Status Trelegy Ellipta 200-62.5-25 MCG/ACT 1 puff Inhalation Once a day 04/20/2024 Active MiraLax 17 GM/SCOOP 1 scoop mixed with 8 ounces of fluid Orally Once a day for 30 day(s) 01/28/2024 Active Atorvastatin Calcium 40 MG 1 tablet Oral ly Once a day Active traMADol HCl 50 MG 1 tab(s) Orally q6h prn 024 Active Aspir-Low 81 MG 1 tablet Orally Once a day Active Vital Signs Blood pressure systolic 100 mm Hg 05/20/19 25 Blood pressure diastolic 66 mm Hg 025 Heart Rate 64 /min 05/19/2024 Height 69 in 05/19/2024 Weight 193.4 lbs 05/19/2024 BMI 28.56 kg/m2 05/19/2024 Encounters Encounter Location Date Provider Diagnosis [place] [address] [place] [id number] 05/19/2024 Daljit Monreal Chronic obstructive pulmonary disease, unspecified COPD type J44.9 ; Tobacco use disorder F17.200 ; Primary generalized (osteo)arthritis M15.0 and ASCVD (arteriosclerotic cardiovascular disease) I25.10 Assessments Encounter Date Diagnosis (ICD Code) Assessment Notes Treatment Notes Treatment Clinical Notes Section Notes 05/19/2024 Chronic obstructive pulmonary disease, unspecified COPD type (ICD-10 - J44.9) 05/19/2024 Tobacco use disorder (ICD-10 - F17.200) 05/19/2024 Primary generalized (osteo)arthritis (ICD-10 - M15.0) 05/19/2024 ASCVD (arteriosclerotic cardiovascular disease) (ICD-10 - I25.10) Plan Of Treatment Next Appt Details Follow Up: 6 Months, Reason: Provider Name:Daljit Allen, 11/19/2024 09:15:00 AM, [address], [place], [place], [id number], Progress Notes * KINGLacho TOMDOB: [birth year] (69 yo M)Acc No.[id number]:05/19/2024 Progress Notes Patient: Lacho BARRIENTOS Provider: Daljit Monreal M.D. :1955 A ge:68 Y S ex:Male Date:05/19/2024 Address:[address] [place] [address] BRENDA Sahni [id number] Subjective: * Chief Complaints: * 1 . F/U. * HPI: H PI: Calm because of her scheduled follow-up today. Interim history is reviewed. He has recovered from his recent bout of bronchitis. He has had a colonoscopy since his last visit with findings of only a single hyperplastic polyp. Continues to follow with cardiology and had an EKG and blood work performed prior to his colonoscopy. No changes in his regimen. E NT/respiratory: He quit smoking while recuperating from his bronchitis but admits to starting back but still making an effort for long-term cessation. * ROS: D ERMATOLOGY: no R muriel. [...] f/u recommended 10/28/2020, Coronary stents - Jigar 04/2022, C-scope/ Lal/ hyperplastic polyp 05/13/24. * Family History: F ather: alive 95 [...] of: 1 2, S moking preference: c igaretderek. C affeine: yes, frequency:. Home smoke detector [...] 1 puff Inhalation Once a day , Medication List reviewed and reconciled with the patient * Allergies: C odeine: abdominal pain, Bee Sting. Objective: * Vitals: W t: 193.4, Temp: 97.6, BP: 100/66, HR: 64, O2 Sat: 96% on RA, Nurse: allan, Ht: 69, BMI:28.56. * Examination: G eneral Examination: General Appearance: N AD. Oral cavity: n o lesions, mucosa moist and WNL, no erythema. Neck: s upple, no lymphadenopathy, no carotid bruits. Chest: n ormal shape and expansion. Heart: R SR. Lungs: c lear to auscultation. Extremities: n o leg edema. Assessment: * Assessment: 1. C hronic obstructive pulmonary disease, unspecified COPD type - J44.9 (Primary) ?2. T obacco use disorder - F17.200 3 . P rimary generalized (osteo)arthritis - M15.0 4 . A SCVD (arteriosclerotic cardiovascular disease) - I25.10 Plan: * Treatment: * Procedure Codes: G 2211 Complex e/[place], [address] PULSE OX, 3017F COLORECTAL CA SCREEN DOC REV, 3074F SYST BP LT 130 MM HG, 3078F DIAST BP < 80 MM HG * Follow Up: 6 Months * Billing Information: * Visit Code: 06344 Office Visit, Est Pt., Level 3. * Procedure Codes: G2211 Complex e/[place]. [address] PULSE OX. 3017F COLORECTAL CA SCREEN DOC REV. 3074F SYST BP LT 130 MM HG. 3078F DIAST BP < 80 MM HG. * Electronic signature of Daljit Monreal MD on 08/07/2024 at 06:17 PM EDT Sign off status: Pending * Provider: Daljit Monreal M.D. Date: 0 05/19/2024 Generated for Paulie godwin/Paco/eTransmitting on: 0 08/07/2024 06:17 PM EDT History and Physical Notes * Examination Category Sub-Category Detail Notes Category Not es General Examination Heart: RSR Lungs: clear to auscultatio n Extremities: no leg edema General Appearance: NAD Neck: supple, no lymphaden opathy, no carotid bruits Oral cavity: no lesions, mucosa m oist and WNL, no erythema Chest: normal shape and exp ansion
--- OUTSIDE RECORDS SUMMARY | 2024-08-07 18:17 | XMS_ITS ---
Author Organization Unknown [facility] Start Date Provider Encounter for Check-up [id number] [facility]
--- OUTSIDE RECORDS SUMMARY | 2024-08-07 18:17 | XMS_ITS | Clinical Summary ---
Author Organization Healthcare Address [address] [place] [address] Care Team Providers Care Armoured Car Escort Name Role Phone Unavailable Primary Care Provider Unavailabl e Social History Tobacco Use Types Packs/Day Years Used Date Smoking Tobacco: Never Sex and Gender Information Value Date Recorded Sex Assigned at Not on file Legal Sex Male 6:04 PM EDT Gender Identity Not on file Sexual Orientation Not on file Last Filed Vital Signs Vital Sign Reading Time Taken Comments Blood Pressure - - Pulse - - Temperature - - Respiratory Rate - - Oxygen Saturation - - Inhaled Oxygen Concentration - - Weight 81.7 kg (180 lb 0.1 oz) 10/10/2016 1:31 P M EDT Height 175.3 cm (5' 9 ) 10/10/2016 1:31 PM EDT Body Mass Index 26.58 10/10/2016 1:31 PM EDT Plan of Treatment Not on file
[2024-08-07 18:18] VITALS: BP 113/69; PULSE 78; RESP 16; TEMP 36.7; O2SAT 96; BMI 30.4
--- OUTSIDE RECORDS SUMMARY | 2024-08-07 18:18 | XMS_ITS | Patient Health Record ---
[facility] [address] [facility] [address] [id number] Care Team Providers Care Podiatric Medicine Professor Name Role Phone Daljit Monreal Primary Care Provider Ricky Monae Unavailable [phone] Darren Lowery Unavailable [phone] Ida Garcia Unavailable [phone] Allergies Allergen (clinical drug ingredient) Drug/Non Drug Allergy documented on EMR Reaction Allergy Type Onset Date Status Bee Sting Unknown Allergy Active codeine Codeine abdominal pain Drug Allergy Ac tive Results Component Value Reference Range Notes CBC Fingerstick (in house) Reviewed date:04/20/2024 10:56:31 [...] - 38 plat 84 100 - 400 Influenza Screen (in house) Reviewed date:04/20/2024 10:56:19 AM Interpretation: Performing Lab: Notes/Report: results Neg CBC Fingerstick (in house) Reviewed date:02/03/2024 08:59:39 PM Interpretation: Performing Lab: Notes/Report: wbc 6.0 3.5 - 10 lym 23.9 15 - 50 mid 5.4 2 - 15 gran 70.7 35 - 80 rbc 4.93 3.5 - 5.5 hgb 14.1 11.5 - 16.5 hct 43.9 35 - 55 mcv 89.1 75 - 100 mch 28.7 25 - 35 mchc 32.2 31 - 38 plat 140 100 - 400 P-Comprehensive Metabolic Pa marcus (CMP) Reviewed date:09/20/2023 11:40:25 AM Interpretation:Normal Performing Lab: Notes/Report: Test performed by [facility] [address] [place] [address] , [address], [place] [address] Abbe Beard MD, Return To Service Inspector CLIA: [id number] Sodium 142 135-145 mmol/L Potassium 4.7 3.5-5.3 mmol/L Chloride 106 97-108 mmol/L CO2 28 22-32 mmol/L Glucose 96 65-99 mg/dL BUN 21 8-23 mg/dL Creatinine 0.95 0.70-1.30 mg/dL Calcium 9.4 8.6-10.4 mg/dL eGFR by Creatinine 86 >59 mL/min/1.73m2 Protein 6.3 6.0-8.3 g/dL Albumin 4.2 3.5-5.3 g/dL Alkaline Phosphatase 101 40-129 IU/L ALT (SGPT) 13 <5-55 IU/L AST (SGOT) 19 <5-46 IU/L Bilirubin, Total 0.3 <0.2-1.2 mg/dL A/G Ratio 2.0 1.1-2.5 mg/dL P-Lipid Panel Reviewed date:09/20/2023 11:40:25 AM Interpretation:Normal Performing Lab: Notes/Report: Test performed by [facility] [address] [place] [address] , [address], [place] [address] Abbe Beard MD, Return To Service Inspector CLIA: [id number] Cholesterol 98 <200 mg/dL Triglycerides 92 <150 mg/dL HDL Cholesterol 41 >39 mg/dL Cholesterol / HDL Ratio 2.39 0.00-4.99 Ratio Non-HDL Cholesterol 57 <130 mg/dL LDL Cholesterol (Calculation) 39 <130 mg/dL LDL Cholesterol Levels* Less than 100 mg/dL Optimal 100 to 129 mg/dL Near Optimal/ Above Optimal 130 to 159 mg/dL Borderline High 160 to 189 mg/dL High 190 mg/dL and above Very High * Categories as recommended by the 2004 ATPIII guidelines LDL/HDL Ratio 0.9 <3.3 Ratio ____ LDL Cholesterol Patient History ____ Test Date: 09/17/2023 LDL Results: 39 Units: mg/dL % Change: - ____ Urinalysis - Inhouse Reviewed date:11/01/2023 12:13:59 PM Interpretation: Performing Lab: Notes/Report: Color/Clarity dark yellow/clear Leuk neg Nitrite neg Urobili 3.2 Protein neg pH 5.5 Blood trace-lysed Sp. Gr. >=1.030 Ketone neg Bili 1+ Gluc neg Covid test (in house) Reviewed date:04/20/2024 10:56:39 AM Interpretation: Performing Lab: Notes/Report: Result: Neg Reason For Referral No Information Medications Medication SIG (Take, Route, Frequency, Duration) [...] 50 MG 1 tab(s) Orally q6h prn 06/13/2 025 Active Immunizations Vaccine Route Administration Date Status Comme nts COVID 19 Moderna Unknown 04/21/2020 Administered COVID 19 Moderna Unknown 05/19/2020 Administered Tetanus Tdap-Adacel (over 7yrs) Unknown 08/13/2015 Admi nistered Problems Problem Type SNOMED Code ICD Code Onset Dates Problem Status W/U Status Risk Notes Problem Coronary arteriosclerosis (34998696) ASCVD (arteriosclerotic cardiovascular disease) (I25.10) Active confirmed Problem Constipation (09900249) Constipation (K59.00) Active confirmed Problem 809979120 COPD with exacerbation (J44.1) Active confirmed Problem 212544149 Primary generalized (osteo)arthritis (M15.0) Active confirmed Problem 45383495 Chronic obstructive pulmonary disease, unspecified COPD type (J44.9) Active confirmed Problem 965712057 Tobacco use disorder (F17.200) Active confirmed Problem 29257902 Congestive heart failure, unspecified HF chronicity, unspecified heart failure type (I50.9) Active confirmed Vital Signs Heart Rate 64 /min 05/19/2024 Blood pressure diastolic 66 mm Hg 05/19/2024 Height 69 in 05/19/2024 Blood pressure systolic 100 mm Hg 05/19/2024 Weight 193.4 lbs 05/19/2024 BMI 28.56 kg/m2 05/19/2024 Encounters Encounter Location Date Provider Diagnosis [facility] [address] [place] [id number] 09/17/2023 R Pola Monreal Congestive heart failure, unspecified HF chronicity, unspecified heart failure type I50.9 and Lumbar radiculopathy M54.16 [facility] [address] [place] [id number] 11/01/2023 Darren Lowery 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 [facility] [address] [place] [id number] 01/28/2024 R Pola Monreal Constipation K59.00 and History of colon polyps Z86.0100 [facility] [address] [place] [id number] 02/03/2024 Ida Garcia Bronchitis J40 [facility] [address] [place], [place] [id number] 04/20/2024 Ricky Monae Acute bronchitis, unspecified organism J20.9 ; Chronic obstructive pulmonary disease, unspecified COPD type J44.9 and Tobacco use disorder F17.200 [facility] [address] [place], [place] [id number] 04/24/2024 J Riccardo Monae COPD with exacerbati on J44.1 [facility] [address] [place], [place] [id number] 05/19/2024 R Pola Rah Chronic obstructive pulmonary disease, unspecified COPD type J44.9 ; Tobacco use disorder F17.200 ; Primary generalized (osteo)arthritis M15.0 and ASCVD (arteriosclerotic cardiovascular disease) I25.10 [facility] [address] [place], [place] [id number] 09/03/2023 R Pola Rah Lumbar radiculopathy M54.16 [facility] [address] [place], [place] [id number] 09/20/2023 R Pola Rah [facility] [address] [place], [place] [id number] 10/10/2023 R Pola Rah [facility] [address] [place], [place] [id number] 01/15/2024 R Pola Rah Screening for colon cancer Z12.11 [facility] [address] [facility] [address] [place], [place] [id number] 07/31/2024 R Pola Rah Lumbar radiculopathy M54.16 Assessments Encounter Date Diagnosis (ICD Code) Assessment Notes Treatment Notes Treatment Clinical Notes Section Notes 09/03/2023 Lumbar radiculopathy (ICD-10 - M54.16) 09/17/2023 Lumbar radiculopathy (ICD-10 - M54.16) 09/17/2023 Congestive heart failure, unspecified HF chronicity, unspecified heart failure type (ICD-10 - I50.9) 11/01/2023 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 HAS APPT SATURDAY WITH CARDIOLOGY, STATES 05/19/2024 Chronic obstructive pulmonary disease, unspecified COPD type (ICD-10 - J44.9) 05/19/2024 Tobacco use disorder (ICD-10 - F17.200) 07/31/2024 Lumbar radiculopathy (ICD-10 - M54.16) 05/19/2024 Primary generalized (osteo)arthritis (ICD-10 - M15.0) 04/20/2024 Tobacco use disorder (ICD-10 - F17.200) 05/19/2024 ASCVD (arteriosclerotic cardiovascular disease) (ICD-10 - I25.10) Plan Of Treatment Pending Test Test Name Order Date colonoscopy 01/28/2024 colonoscopy 01/15/2024 H-Lipid Panel 08/23/2020 Next Appt Details Provider Name:Daljit Allen, 11/19/2024 09:15:00 AM, [address], [place], [place], [id number], Insurance Providers Payer Name Payer Address Payer Phone Subscriber Number Group Number Insured Name Patient Relationship to Insured Coverage Start Date Coverage End Date MEDICARE PART B [address] [address] [place] [address] [id number] Lacho KING Self - patient is the insured [facility] MEDICARE SUPPLEMENT [address] [address] [place], [place] [phone] [id number] KING Lacho Self - patient is the insured Medications Administered Medication Instructions Date of Administration Dosage Notes Dexamethasone 12/10/2016 1.5 mL Dexamethasone 07/30/2017 1.5 mL Dexamethasone 04/18/2018 1.5 mL Dexamethasone 02/03/2024 1 mL Medical (General) History Medical History History ICD Code Tobacco addiction Osteo Arthritis ASCVD - s/p right coronary artery stent Cardiomyopathy Kidney stone Surgical History Surgery Date(Month/Year) Hernia Repair X 2 vascetomy index finger of left hand cut off by spr ocket scope of right knee repair of right hand laceration 2015 Right hemicolectomy/large tu bulovillous adenoma of the cecum/Dr. Casillas 07/2019 C-scope/ Lal/ polyp x 04/20yr f/u rec ommended 10/28/2020 Coronary stents - Jigar 04/2022 C-scope/ Lal/ hyperplastic polyp 04/19 08/12 Hospitalization History Reason Date(Month/Year)
[2024-08-07 18:30] VITALS: BP 106/64; PULSE 75; RESP 20; O2SAT 95
--- NOTE | 2024-08-07 18:34 | PC.NURSE ---
Dr. Julien @ bedside
[2024-08-07] MEDS: FLUORESCEIN SODIUM 1MG STRIP 1 MG OP (18:35)
[2024-08-07] MEDS: TETRACAINE 0.5% OPTH SOL 15ML OP (18:35)
[2024-08-07] MEDS: NEOMYCIN-BACIT-POLYM OPHTH OINT 3.5GM TUBE 3.5 GM OP (18:35)
[2024-08-07] MEDS: EYE WASH IRRIGATION SOLN 118ML BOTTLE 120 ML OP (18:35)
[2024-08-07 18:50] VITALS: BP 106/64; PULSE 73; RESP 16; TEMP 36.6; O2SAT 94
--- NOTE | 2024-08-07 19:02 | HMH.EDGENADL ---
Discharge Plan Disposition Patient Disposition: Home, Self-Care Condition: Good Prescriptions Prescriptions: No Action aspirin 81 mg tablet 81 mg PO DAILY tramadol 50 mg tablet 50 mg PO Q4-6H PRN (Reason: Pain) Patient Comments: TAKE 1 TABLET BY MOUTH EVERY 6 HOURS NEEDED atorvastatin 40 mg tablet 40 mg PO DAILY Referrals Follow up/Referrals: Jose Daniel Monreal MD [Primary Care Provider, Medical] - See instructions Activity Restrictions/Add. Instructions Additional Instructions/Restrictions: You were evaluated in the emergency department today. You had a metallic foreign body removed from your right eye. You still have a residual rust ring, so it is important that you see an eye doctor over the next [address] Dowling' office is open on Saturday from 8am-12pm. If you do not follow-up for removal of the rust ring within 24 hours, it can cause chronic scarring in your vision. Please use the antibiotic ointment provided to you 4 times a day for the next 4 days or until directed otherwise by an eye doctor. If you have difficulty getting in or getting it managed there, I recommend seeking ER evaluation, preferably an ER with ophthalmology such as . Take Tylenol and ibuprofen as needed for pain. Return to the emergency department for new or worsening symptoms. Clinical Impressions Clinical Impression: Metal foreign body in eye region, Corneal rust ring of right eye Stand Alone Forms Stand Alone Forms: Work/School Release Instructions Patient Instructions: DI for Foreign Body in the Eye Print Language Print Language: Andorran Discharge ED Provider: Lara Julien General Adult HPI General Chief complaint: Eye Problems Stated complaint: something in rt eye since yesterday Time Seen by Provider: 08/07/24 18:14 Mode of Arrival: Ambulatory Source of Information: Patient Description of Symptoms (Recalled from ER Triage Doc. by RN): pt reports getting possibly a peice of steel in his eye yesterday while working. eye is red and watery, denies loss of vision. History of Present Illness HPI narrative: This patient is a 69-year-old male presenting to the emergency department for evaluation with concern for foreign body in the right eye. Patient states that he thinks he got a piece of steel in his eye yesterday while working. This happened yesterday before lunchtime. He notes foreign body sensation and watery eyes but denies any pain with extraocular movement or vision change. No other concerns or complaints noted at this time. He is a glasses wear but does not wear contact lenses. He states his last tetanus shot was recent, definitely within the last 5 years. Related Data Home Medications ?Medication ?Instructions ?Recorded ?Confirmed aspirin 81 mg tablet 81 mg PO DAILY . 03/12/22 08/07/24 tramadol 50 mg tablet 50 mg PO Q4-6H PRN Pain 11/05/23 08/07/24 atorvastatin 40 mg tablet 40 mg PO DAILY 05/13/24 08/07/24 Allergies Allergy/AdvReac Type Severity Reaction Status Date / Time codeine (CODEINE) AdvReac Mild Nausea Verified 08/07/24 18:31 [facility] Disclaimer: The information contained in this section may have been updated after the patient was seen, as this information can be updated by other users. Medical History Pre-op exam Hyperlipidemia Coronary artery disease Tobacco user Cardiomyopathy Typical angina LV dysfunction Abnormal electrocardiogram [ECG] [EKG] Chest pain Abnormal result of cardiovascular function study Surgical History History of colonoscopy History of right coronary artery stent placement History of colon resection Family History Other No significant family history Social History Smoking Status: Current every day smoker tobacco type: cigarettes packs per day: 1 second hand exposure: Yes alcohol intake: never substance use type: denies use current occupational status: retired Travel in the last 8 weeks?: None household members: significant other housing: house current occupational exposures/hazards: No caffeine: Yes Have you lived/traveled outside [place] in past 30 days?: No Contact w/someone who lives/traveled outside US past 30 days?: No Exposure to someone with infectious disease in past 14 days?: No Do you have a fever (greater than 100.4 F or 38 C)?: No Have you tested positive for COVID-19?: No Exposed to someone with COVID-19 in past 14 days?: No Do you have a sore throat?: No Do you have a cough?: No Do you have any weakness?: No Do you have any diarrhea?: No Are you experiencing any unusual bleeding?: No Do you have any muscle aches/pain?: No Do you have any abdominal pain?: No Are you experiencing loss of taste or smell?: No Other Medical History Have you received the Flu Vaccine for this season: No Have you received the Pneumonia Vaccine: Yes ROS Obtained: Yes All systems reviewed & no additional complaints except as documented Physical Exam General General appearance: alert and in no apparent distress Head Head exam: atraumatic and normocephalic Eye Eye exam: Present PERRL and EOMI; Absent discharge, periorbital swelling or periorbital tenderness Expanded Eye Exam Both Eyes Image:  1. Metallic foreign body with rust ring ENT ENT exam: Present normal exam, normal oropharynx, mucous membranes moist and normal external ear exam Neck Neck exam: Present normal inspection, full ROM and trachea midline; Absent tenderness Chest Chest inspection: Present normal inspection and symmetric chest wall rise; Absent tenderness Respiratory Respiratory exam: Present normal lung sounds bilaterally; Absent respiratory distress, wheezes, stridor or accessory muscle use Cardiovascular Cardiovascular exam: Present regular rate and normal rhythm Abdominal Exam Abdominal exam: Present soft; Absent distention, tenderness or guarding Extremities Exam Extremities exam: Present normal inspection, full ROM and normal capillary refill; Absent tenderness or edema Back Exam Back exam: Present normal inspection and full ROM; Absent tenderness Neurological Exam Neurological exam: Present alert, oriented X3, CN II-XII intact and normal gait; Absent motor sensory deficit Psychiatric Psychiatric exam: Present normal affect and normal mood Skin Skin exam: Present warm and dry Medical Decision Making Medical Records Medical records reviewed: Yes I reviewed the patient's medical records. Screening: Per USPSTF and CDC recommendations, given the prevalence of disease in our region, it is our hospital?s policy to screen for HIV and viral Hepatitis for all patients aged 18 and over and those with ongoing risk factors. Genaro Inquiry Pt receiving controlled substance: No Vital Signs: 08/07/24 18:18 08/07/24 18:30 08/07/24 18:50 Temperature 98.1 F 98 F Temperature Source Oral Oral Pulse Rate 75 73 Pulse Rate [Right Brachial] 78 Respiratory Rate 16 20 16 Blood Pressure 106/64 L 106/64 L Blood Pressure [Right Arm] 113/69 Blood Pressure Mean 78 Blood Pressure Mean [Right Arm] 83 Blood Pressure Source Automatic Cuff Blood Pressure Source [Right Arm] Automatic Cuff Blood Pressure Position Sitting Blood Pressure Position [Right Arm] Sitting 02 Sat by Pulse Oximetry 96 95 Oxygen Delivery Method Room Air Room Air Lab Data Lab results reviewed: Yes I reviewed the patient's lab results. Orders (Tests/Meds): ED MEDICATIONS Discontinued Medications Generic Name Dose Route Start Last Admin Trade Name Dwaine PRN Reason Stop Dose Admin Eye Irrigation Solution 120 ml 08/07/24 18:53 Eye Wash Irrigation Soln 118ml Bottle OP 08/07/24 18:54 ONCE ONE Fluorescein Sodium 1 mg 08/07/24 18:53 08/07/24 18:35 Fluorescein Sodium 1mg Strip OP 08/07/24 18:54 1 mg ONCE ONE Administration Neomycin/Polymyxin/Bacitracin 3.5 gm 08/07/24 18:53 Mxjynhnt-Xjctu-Srndl Ophth Oint 3.5gm Tube OP 08/07/24 18:54 ONCE ONE Tetracaine HCl 0 ml 08/07/24 18:53 08/07/24 18:35 Tetracaine 0.5% Opth Lilliana 15ml OP 08/07/24 18:54 15 ml ONCE ONE Administration Medical Decision Narrative: In summary, this patient is a 69-year-old male presenting to the Emergency Department for evaluation of foreign body in the right eye. Differential diagnoses considered include but are not limited to metallic foreign body, rust ring, globe injury, corneal abrasion. Ruling out the most morbid conditions drove assessment. On exam, the patient is well-appearing. He has reassuring eye exam with the exception of a metallic foreign body noted on the right eye. He also has a rust ring. Otherwise, ocular exam is within normal limits. After informed consent was explained, patient consented to removal of foreign body at bedside. Prior to this, eye was anesthetized with tetracaine and then stained with fluorescein stain. He had no localized uptake and no Oracio sign, no evidence of open globe. He is up-to-date on tetanus. Procedure: Informed consent was obtained. The right eye was anesthetized with tetracaine. The foreign body was removed with an 18 guage needle with one attempt. Removal confirmed with direct visualization He tolerated this well with no immediate complications however I was unable to remove residual rust ring. I was then irrigated with eyewash. His eye was then dressed with antibiotic ointment. Ultimately, given failure to remove rust ring, it is important that the patient follows up with an eye doctor over the next 24 hours. He states that he always sees Dr. Dowling for issues. He states that he will go there in the morning when they open, as they are open from 8 AM to 12 PM tomorrow. Advised that he if he had trouble getting in, he should seek ophtho evaluation right away in an emergency department, such as . I also advise that he return to the emergency department for any new or worsening symptoms. He was discharged with an antibiotic and plans for follow-up with an eye doctor tomorrow. Critical Care Critical Care Time Critical Care Time: No
== END 2024-08-07 18:55 | disposition home or self-care (01) ==
PROVIDERS: Emergency Provider Emergency Medicine; PCP Family Medicine
DX: T15.91XA Foreign body on external eye, part unspecified, right eye, initial encounter (principal); H16.021 Ring corneal ulcer, right eye; F17.210 Nicotine dependence, cigarettes, uncomplicated; W44.E0XA Non-magnetic metal object unspecified, entering into or through a natural orifice, initial encounter
CPT/HCPCS: 65222; 99284

== ENCOUNTER 2024-12-03 06:34 | Outpatient (CLI) | payer MEDICARE, SELFPAY ==
--- OUTSIDE RECORDS SUMMARY | 2024-04-24 06:45 | XMS_ITS ---
Author Organization [facility] Address [address] [facility] [address] [id number] Care Team Providers Care Chemistry Teacher Name Role Phone Daljit Monreal Primary Care Provider [phone] Ricky Monae [phone] Allergies Allergen (clinical drug ingredient) Drug/Non Drug Allergy documented on EMR Reaction Allergy Type Onset Date Status Bee Sting Unknown Allergy Active codeine Codeine abdominal pain Drug Allergy Ac tive REASON FOR VISIT 4 Day Follow Up Medications Medication SIG (Take, Route, Frequency, Duration) Notes Start Date End Date Status Albuterol Sulfate HFA 108 (90 Base) MCG/ACT 2 inhalations Inhalation four times a day as needed 04/20/2024 Active Cefdinir 300 MG as directed Orally T wo times a day 04/20/2024 Active Azithromycin 500 MG 1 tablet Orally once daily 04/20/2024 Active Trelegy Ellipta 200-62.5-25 MCG/ACT 1 puff Inhalation Once a day 04/20/2024 Active Medrol 4 MG as directed orally d aily; Duration: 6 days 04/20/2024 Active traMADol HCl 50 MG 1 tab(s) Orally q6h prn 024 Active Aspir-Low 81 MG 1 tablet Orally Once a day Active Atorvastatin Calcium 40 MG 1 tablet Oral ly Once a day Active MiraLax 17 GM/SCOOP 1 scoop mixed with 8 ounces of fluid Orally Once a day; Duration: 30 day(s) 01/28/2024 Active Problems Problem Type SNOMED Code ICD Code Onset Dates Problem Status W/U Status Risk Notes Problem Acute exacerbation of chronic obstructive airways disease (608569589) COPD with exacerbation (J44.1) Active confirmed Vital Signs Blood pressure systolic 124 mm Hg 04/25/19 25 Blood pressure diastolic 72 mm Hg 025 Heart Rate 67 /min 04/24/2024 Height 69 in 04/24/2024 Weight 194.2 lbs 04/24/2024 BMI 28.68 kg/m2 04/24/2024 Encounters Encounter Location Date Provider Diagnosis [facility] [address] [facility] 36 [facility] [address] [place] [id number] 04/24/2024 Ricky Monae COPD with exacerbati on J44.1 Assessments Encounter Date Diagnosis (ICD Code) Assessment Notes Treatment Notes Treatment Clinical Notes Section Notes 04/24/2024 COPD with exacerbation (ICD-10 - J44.1) Complete medications. HAS APPT SATURDAY WITH CARDIOLOGY, HE STATES Plan Of Treatment Treatment Notes Assessment Notes COPD with exacerbation Complete medicati ons. HAS APPT SATURDAY WITH CARDIOLOGY, HE STATES Next Appt Details Follow Up: [address] Quique rowley, Reason: Provider Name:Daljit Allen, 05/20/2025 09:00:00 AM, [address] [facility] 36 [facility], [address], [place], [id number], Progress Notes * Lacho KING CHARANDOB: [birth year] (69 yo M)Acc No.[id number]:04/24/2024 Progress Notes Patient: Lacho BARRIENTOS Provider: Ricky Monae M.D. :1955 A ge:68 Y S ex:Male Date:04/24/2024 Address:[address] [place] [address] Daljit Mar BRENDA [id number] Pcp:Daljit Monreal Subjective: * Chief Complaints: * 1 . 4 Day Follow Up. * HPI: E NT/respiratory: The pt is here for a follow up on Bronchitis and COPD exacerbation. Pt states he is doing much better. DETAILS OF THE 04/16/24 ER VISIT REVIEWED. NOTE CXR REPORT FROM THAT VISIT. 68 year old male presents with c/o cough. c/o Short of Breath. Denies : Fever. D enies : Chest Pain. [...] knee , repair of right hand laceration 2015, Right hemicolectomy/large tubulovillous adenoma of the cecum/Dr. Casillas 07/2019, C-scope/ Lal/ polyp x 04/20yr f/u recommended 10/28/2020, Coronary stents - Jigar [...] of fluid Orally Once a day , Taking Trelegy Ellipta 200-62.5-25 MCG/ACT Aerosol Powder Breath Activated 1 puff Inhalation Once a day , Taking Azithromycin 500 MG Tablet 1 tablet Orally once daily , Taking Cefdinir 300 MG Capsule as directed Orally Two times a day , Taking Medrol 4 MG Tablet Therapy Pack as directed orally daily , Taking Albuterol Sulfate HFA 108 (90 Base) MCG/ACT Aerosol Solution 2 inhalations Inhalation four times a day as needed , Medication List reviewed and reconciled with the patient * Allergies: C odeine: abdominal pain, Bee Sting. Objective: * Vitals: W t:194.2, Temp:98.1, BP:124/72, HR:67, O2 Sat:97% on RA, Nurse:EMELY, Ht: 69, BMI:28.68. * Examination: G eneral Examination: General Appearance: N AD. H EENT: u nremarkable.?Oral cavity: n o lesions, mucosa moist and WNL, no erythema. N concha: s upple, no lymphadenopathy. C hest: n ormal shape and expansion. H eart: R SR. L ungs: d ecreased breath sounds, expiratory wheezes. N eurologic Exam: I ntact, gait normal. S kin:?normal, no rash. P eripheral pulses: n ormal . E xtremities: n o leg edema. Assessment: * Assessment: 1. C OPD with exacerbation - J44.1 (Primary) Plan: * Treatment: * Procedure Codes: G 2211 Complex e/[place], [address] [place], 3074F SYST BP LT 130 MM HG, 3078F DIAST BP < 80 MM HG * Follow Up: [address] Monreal * Images: Billing Information: * Visit Code: 17713 Office Visit, Est Pt., Level 3. * Procedure Codes: G2211 Complex e/[place]. [address] [place]. 3074F SYST BP LT 130 MM HG. 3078F DIAST BP < 80 MM HG. * Electronic signature of Ricky Monae MD on 12/03/2024 at 06:40 AM EDT Sign off status: Pending * Provider: Ricky Monae M.D. Date: 0 04/24/2024 Generated for Paulie godwin/Paco/eTransmitting on: 1 06:40 AM EDT History and Physical Notes * HPI (History of Present Illness) Category Sub-Category Detail Notes Category Not es ENT/respiratory Short of Breath Chest Pain cough Fever Examination Category Sub-Category Detail Notes Category Not es General Examination HEENT: unremarkable Heart: RSR Lungs: decreased breath juliano nds, expiratory wheezes Extremities: no leg edema General Appearance: NAD Skin: normal, no rash Neurologic Exam: Intact, gait normal Neck: supple, no lymphaden opathy Oral cavity: no lesions, mucosa m oist and WNL, no erythema Peripheral pulses: normal Chest: normal shape and exp ansion
--- OUTSIDE RECORDS SUMMARY | 2024-05-19 06:45 | XMS_ITS ---
Author Organization [facility] Address [address] [facility] [address] [place] [id number] Care Team Providers Care Die Storage Clerk Name Role Phone Daljit Monreal Primary Care Provider [phone] Allergies Allergen (clinical drug ingredient) Drug/Non Drug [...] a day; Duration: 30 day(s) 01/28/2024 Active Atorvastatin Calcium 40 [...] 05/19/2024 Encounters Encounter Location Date Provider Diagnosis [facility] [address] [facility] [address] [place] [id number] 05/19/2024 Daljit Monreal Chronic obstructive pulmonary disease, [...] Up: 6 Months, Reason: Provider Name:Daljit Allen, 05/20/2025 09:00:00 AM, [address], [place], [place], [phone], Progress Notes * CHRISTINE Lacho FARRARDOB: [birth year] (69 yo M)Acc No.[id number]:05/19/2024 Progress Notes Patient: Lacho BARRIENTOS Provider: Daljit Monreal M.D. :1955 A ge:68 Y S ex:Male Date:05/19/2024 Address:[address] [place] [address] BRENDA Sahni [id number] Subjective: * Chief Complaints: * 1 . [...] 64, O2 Sat: 96% on RA, Nurse: preethi, Ht: 69, BMI:28.56. * Examination: G eneral Examination: General Appearance: N AD. O ral cavity: n o lesions, mucosa moist and WNL, no erythema. N concha: s upple, no lymphadenopathy, no carotid bruits.?Chest: n ormal shape and expansion. H eart: R SR. L ungs: c lear to auscultation. E xtremities: n o leg edema. Assessment: * Assessment: 1. C hronic obstructive pulmonary disease, unspecified COPD type - J44.9 (Primary) ?2. T obacco use disorder - F17.200 3 . P rimary generalized (osteo)arthritis - M15.0 4 . A SCVD (arteriosclerotic cardiovascular disease) - I25.10 Plan: * Treatment: * Procedure Codes: G 2211 Complex e/[place], [address] PULSE OX, 3017F COLORECTAL CA SCREEN DOC REV, 3074F SYST BP LT 130 MM HG, 3078F DIAST BP < 80 MM HG * Follow Up: 6 Months * Images: Billing Information: * Visit Code: 80642 Office Visit, Est Pt., Level 3. * Procedure Codes: G2211 Complex e/[place]. [address] PULSE OX. 3017F COLORECTAL CA SCREEN DOC REV. 3074F SYST BP LT 130 MM HG. 3078F DIAST BP < 80 MM HG. * Electronic signature of Daljit Monreal MD on 12/03/2024 at 06:37 AM EDT Sign off status: Pending * Provider: Daljit Monreal M.D. Date: 0 05/19/2024 Generated for Paulie godwin/Paco/Sam on: 06:37 AM EDT History and Physical Notes * Examination Category Sub-Category Detail Notes Category Not es General Examination Heart: RSR Lungs: clear to auscultatio n Extremities: no leg edema General Appearance: NAD Neck: supple, no lymphaden opathy, no carotid bruits Oral cavity: no lesions, mucosa m oist and WNL, no erythema Chest: normal shape and exp ansion
--- OUTSIDE RECORDS SUMMARY | 2024-09-15 05:30 | XMS_ITS ---
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 Gr. 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 Medications Medication SIG (Take, Route, Frequency, Duration) Notes Start Date End Date Status Aspir-Low 81 MG 1 tablet Orally Once a day Active traMADol HCl 50 MG 1 tab(s) Orally q6h prn 025 Active Atorvastatin Calcium 40 MG 1 tablet Oral ly Once a day Active Vital Signs Blood pressure systolic 112 mm Hg 09/16/19 25 Blood pressure diastolic 72 mm Hg 025 Heart Rate 70 /min 09/15/2024 Height 69 in 09/15/2024 Weight 190 lbs 09/15/2024 BMI 28.06 kg/m2 09/15/2024 Encounters Encounter Location Date Provider Diagnosis [facility] [address] [facility] [address] [place] [id number] 09/15/2024 Darren Lowery 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 :1955 A ge:69 Y S ex:Male Date:09/15/2024 Address:[address] [place], [place] [id number] Pcp:Daljit Monreal Subjective: * Chief Complaints: * 1 . CDL physical. * HPI: H PI: 69 year old male presents with c/o Patient is here today for?CDL physical. * ROS: D ERMATOLOGY: no R muriel. n o H carrie. G ASTROENTEROLOGY: no N ausea. n o V omiting. U ROLOGY: no D ifficulty urinating. n o B lood in urine. * Medical History: T obacco addiction, Osteo Arthritis, ASCVD - s/p right coronary artery stent, Cardiomyopathy, Kidney stone. * Surgical History: H ernia Repair X 2 , vascetomy , index finger of left hand cut off by sprjiet , scope of right knee , repair of right hand laceration 2015, Right hemicolectomy/large tubulovillous adenoma of the cecum/Dr. Casillas 07/2019, C-scope/ Lal/ polyp x / 3yr f/u recommended 10/28/2020, Coronary stents - Jigar 04/2022, C-scope/ [facility]/ hyperplastic polyp 05/13/24. * Hospitalization/Major Diagno stic Procedure: D enies Past Hospitalization. * Family History: F ather: alive 95 [...] Tablet 1 tab(s) Orally q6h prn , Discontinued MiraLax 17 GM/SCOOP Powder 1 scoop mixed with 8 ounces of fluid Orally Once a day , Discontinued Trelegy Ellipta 200-62.5-25 MCG/ACT Aerosol Powder Breath Activated 1 puff Inhalation Once a day , Medication List reviewed and reconciled with the patient * Allergies: C odeine: abdominal pain, Bee Sting. Objective: * Vitals: W t: 190, Temp: 97.8, BP: 112/72, HR: 70, Nurse: ida, Ht: 69, Visual Acuity: Left eye:20/25, Right eye:20/25, Both eyes:20/25, Color:Pass, Comments:With glasses, BMI:28.06. * Examination: G eneral Examination: General Appearance: N AD. H EENT: u nremarkable.?Oral cavity: n o lesions, mucosa moist and WNL, no erythema. N concha: s upple, no lymphadenopathy. C hest: n ormal shape and expansion. H eart: R SR. L ungs: c lear to auscultation. A bdomen: bowel sounds present, soft and nontender. N eurologic Exam: I ntact, gait normal. S kin: n ormal, no rash. P eripheral pulses: n ormal (2+) bilaterally. E xtremities: n o leg edema. Assessment: * Assessment: 1. 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 Gr. 1.025 * K [place] Neg * B [place] Neg * G [place] Neg * Erika Renee 09/15/2024 09:47: 36 AM EDT > Provider reviewed results while patient in office. * Procedure Codes: 9 9173 VISUAL ACUITY SCREEN, 53853 Urinalysis, no micro * Follow Up: a s scheduled,and prn * Images: Billing Information: * Visit Code: 12824 Preventive Care Est Pt. Age 65 and over. * Procedure Codes: 03244 VISUAL ACUITY SCREEN. 33928 Urinalysis, no micro. * Electronic signature of Adrianna Lowery MD on 12/03/2024 at 06:41 AM EDT Sign off status: Pending * Provider: Manolo Lowery M.D. Date: 0 09/15/2024 Generated for Paulie godwin/Paco/Isrealsmitting on: 1 06:41 AM EDT History and Physical Notes * HPI (History of Present Illness) Category Sub-Category Detail Notes Category Not es HPI Patient is here today for CDL physical Examination Category Sub-Category Detail Notes Category Not es General Examination HEENT: unremarkable Heart: RSR Lungs: clear to auscultatio n Abdomen: bowel sounds present , soft and nontender Extremities: no leg edema General Appearance: NAD Skin: normal, no rash Neurologic Exam: Intact, gait normal Neck: supple, no lymphaden opathy Oral cavity: no lesions, mucosa m oist and WNL, no erythema Peripheral pulses: normal (2+) bilatera lly Chest: normal shape and exp ansion
--- OUTSIDE RECORDS SUMMARY | 2024-11-19 05:15 | XMS_ITS ---
Author Organization [facility] Address [address] [id number] Care Team Providers Care Transportation Solutions Manager Name Role Phone Daljit Monreal Primary Care Provider [phone] Allergies Allergen (clinical drug ingredient) Drug/Non Drug Allergy documented on EMR Reaction Allergy Type Onset Date Status Bee Sting Unknown Allergy Active codeine Codeine abdominal pain Drug Allergy Ac tive Results Component Value Reference Range Notes P-Comprehensive Metabolic Pa marcus (CMP) Reviewed date:11/29/2024 10:49:40 PM Interpretation:Normal Performing Lab: Notes/Report: Test performed by [facility] , [address], [place] [address] Abbe Beard MD, Tv Technician CLIA: [id number] Sodium 140 135-145 mmol/L Potassium 4.7 3.5-5.3 mmol/L Chloride 104 97-108 mmol/L CO2 27 20-32 mmol/L Glucose 71 65-99 mg/dL BUN 19 8-23 mg/dL Creatinine 0.89 0.70-1.30 mg/dL Calcium 9.2 8.6-10.4 mg/dL eGFR by Creatinine 91 >59 mL/min/1.73m2 Protein 6.7 6.0-8.3 g/dL Albumin 4.2 3.5-5.3 g/dL Alkaline Phosphatase 114 40-129 IU/L ALT (SGPT) 12 <5-55 IU/L AST (SGOT) 17 <5-46 IU/L Bilirubin, Total 0.7 <0.2-1.2 mg/dL A/G Ratio 1.7 1.1-2.5 P-Lipid Panel Reviewed date:11/29/2024 10:49:40 PM Interpretation:LDL 43 Performing Lab: Notes/Report: Test performed by [employer] [address] [place] [address] Litzy Saldana, [place] [address] Abbe Beard MD, Tv Technician CLIA: [id number] Lipid Panel Footnote See Below *Based on optimal reference values. Please refer to the DOS for additional information regarding diagnostic lipid reference ranges, patient management based on the recently updated lipid guidelines ([place] [employer]/[place] [employer] Task Force on Clinical Practice Guidelines (2018), and pediatric diagnostic lipid reference values (<18 years old). Total Cholesterol 100 <200 mg/dL Triglycerides 92 <150 mg/dL HDL Cholesterol 39 >40 mg/dL Total Cholesterol / HDL Ratio* 2.56 <4.99 Ratio Non-HDL Cholesterol 61 <130 mg/dL LDL Cholesterol (Calculation) 43 <100 mg/dL LDL / HDL Ratio* 1.09 <2.49 Ratio LDL Cholesterol Patient History Test Date: 09/17/2023 LDL Results: 39 Units: mg/dL % Change: - Test Date: 11/19/2024 LDL Results: 43 Units: mg/dL % Change: +10% P-Magnesium Reviewed date:11/29/2024 10:49:40 PM Interpretation:2.0 Performing Lab: Notes/Report: Test performed by [employer] [address] [place] [address] , [place] [address] Abbe Beard MD, Tv Technician CLIA: [id number] Magnesium 2.0 1.6-2.4 mg/dL P-PSA Reviewed date:11/29/2024 10:49:40 PM Interpretation:0.6 Performing Lab: Notes/Report: Test performed by [employer] [address] [place] [address] , Litzy C, [place] [address] Abbe Beard MD, Tv Technician CLIA: [id number] PSA 0.60 <4.00 ng/mL Please note this is an ultrasensitive PSA assay with a lower limit of detection of 0.014 ng/mL. This test is performed by the [employer] ECLIA methodology. Values obtained with different assay methods or kits cannot be directly compared. REASON FOR VISIT 6 month ckup, Needs labs with PSA, low dose chest CT, Prevnar, & flu vaccine Medications Medication SIG (Take, Route, Frequency, Duration) Notes Start Date End Date Status Atorvastatin Calcium 40 MG 1 tablet Oral ly Once a day Active traMADol HCl 50 MG 1 tab(s) Orally q6h prn 025 Active Aspir-Low 81 MG 1 tablet Orally Once a day Active Vital Signs Blood pressure systolic 100 mm Hg 11/20/19 25 Blood pressure diastolic 70 mm Hg 025 Heart Rate 81 /min 11/19/2024 Height 69 in 11/19/2024 Weight 188.2 lbs 11/19/2024 BMI 27.79 kg/m2 11/19/2024 Encounters Encounter Location Date Provider Diagnosis [facility] [address] [facility] [address] [place], [place] [id number] 11/19/2024 Daljit Monreal ASCVD (arteriosclero tic cardiovascular disease) I25.10 ; Chronic obstructive pulmonary disease, unspecified COPD type J44.9 ; Primary generalized (osteo)arthritis M15.0 ; Screening for prostate cancer Z12.5 ; Flu vaccine refused Z28.21 and BMI 27.0-27.9,adult Z68.27 Assessments Encounter Date Diagnosis (ICD Code) Assessment Notes Treatment Notes Treatment Clinical Notes Section Notes 11/19/2024 ASCVD (arteriosclerotic cardiovascular disease) (ICD-10 - I25.10) 11/19/2024 Chronic obstructive pulmonary disease, unspecified COPD type (ICD-10 - J44.9) 11/19/2024 Primary generalized (osteo)arthritis (ICD-10 - M15.0) 11/19/2024 Screening for prostate cancer (ICD-10 - Z12.5) 11/19/2024 Flu vaccine refused (ICD-10 - Z28.21) 11/19/2024 BMI 27.0-27.9,adult (ICD-10 - Z68.27) Plan Of Treatment Next Appt Details Follow Up: 6 Months, Reason: Provider Name:Daljit Allen, 05/20/2025 09:00:00 AM, [address] [facility], [address] , [place], [place], [id number], Progress Notes * Lacho KINGDOB: [birth year] (69 yo M)Acc No.[id number]:11/19/2024 Progress Notes Patient: Lacho BARRIENTOS Provider: Daljit Monreal M.D. :1955 A ge:69 Y S ex:Male Date:11/19/2024 Address:[address] [place] [address] Daljit MarBRENDA [id number] Subjective: * Chief Complaints: * 1 . 6 month ckup. 2. Needs labs with PSA, low dose chest CT, Prevnar, & flu vaccine. * HPI: H PI: 69 year old male presents with c/o Patient is here today for?Pt is here today for a 6 month check up. Pt is not fasting. C ardiology: Denies : Chest Pain. D enies : Short of Breath. D enies : Palpitations. D enies : Leg Edema. He has been having some nocturnal leg cramps. 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 * ROS: D ERMATOLOGY: no R muriel. n o H carrie. G ASTROENTEROLOGY: no N ausea. n o V omiting. U ROLOGY: no D ifficulty urinating. n o B lood in urine. * Medical History: T obacco addiction, Osteo Arthritis, ASCVD - s/p right coronary artery stent, Cardiomyopathy, Kidney stone, Cataracts. * Surgical History: H ernia Repair X [...] Tablet 1 tab(s) Orally q6h prn , Medication List reviewed and reconciled with the patient * Allergies: C odeine: abdominal pain, Bee Sting. Objective: * Vitals: W t: 188.2, Temp: 97.6, BP: 100/70, HR: 81, O2 Sat: 90% on RA, Nurse: [facility], Ht: 69, BMI:27.79. * Examination: G eneral Examination: General Appearance: N AD. Moves slowly onto exam table. H eart: R SR. L ungs: c lear to auscultation. E xtremities: n o leg edema. Assessment: * Assessment: 1. A SCVD (arteriosclerotic cardiovascular disease) - I25.10 (Primary) 2 . C hronic obstructive pulmonary disease, unspecified COPD type - J44.9 3 . P rimary generalized (osteo)arthritis - M15.0 4 . S creening for prostate cancer - Z12.5 5 . F bernadette vaccine refused - Z28.21 6 . B PA 27.0-27.9,adult - Z68.27 Plan: * Treatment: Value Reference Range M agnesium 2.0 1.6-2.4 - mg/dL * Daljit Monreal 11/29/2024 10:49:16 PM EDT > See phone encounter 2.?Chronic obstructive pulmonary disease, unspecified COPD type?LAB: P-Comprehensive Metabolic Panel (CMP) (Collection Date & Time - 11/19/2024 08:25 AM)?Normal* Value Reference Range A /G Ratio 1.7 1.1-2.5 - * A lbumin 4.2 3.5-5.3 - g/dL * A lkaline Phosphatase 114 40-129 - IU/L * A LT (SGPT) 12 <5-55 - IU/L * A ST (SGOT) 17 <5-46 - IU/L * B ilirubin, Total 0.7 <0.2-1.2 - mg/dL * B UN 19 8-23 - mg/dL * C alcium 9.2 8.6-10.4 - mg/dL * C hloride 104 97-108 - mmol/L * C O2 27 20-32 - mmol/L * C reatinine 0.89 0.70-1.30 - mg/dL * G lucose 71 65-99 - mg/dL * P otassium 4.7 3.5-5.3 - mmol/L * S odium 140 135-145 - mmol/L * P rotein 6.7 6.0-8.3 - g/dL * e GFR by Creatinine 91 >59 - mL/min/1.73m2 * Daljit Monreal 11/29/2024 10:49:16 PM EDT > See phone encounter ?LAB: P-Lipid Panel (Collection Date & Time - 11/19/2024 08:25 AM)?LDL 43* Value Reference Range C holesterol / HDL Ratio 2.56 <4.99 - Ratio * C holesterol 100 <200 - mg/dL * H DL Cholesterol 39 L >40 - mg/dL * L DL Cholesterol (Calculation) 43 <100 - mg/d L * L DL/HDL Ratio 1.09 <2.49 - Ratio * N on-HDL Cholesterol 61 <130 - mg/dL * T riglycerides 92 <150 - mg/dL * L ipid Panel Footnote See Below - * Daljit Monreal 11/29/2024 10:49:16 PM EDT > See phone encounter ?LAB: P-Magnesium (Collection Date & Time - 11/19/2024 08:25 AM)?2.0* Value Reference Range M agnesium 2.0 1.6-2.4 - mg/dL * Daljit Monreal 11/29/2024 10:49:16 PM EDT > See phone encounter 3.?Screening for prostate cancer?LAB: P-PSA (Collection Date & Time - 11/19/2024 08:25 AM)?0.6* Value Reference Range P SA 0.60 <4.00 - ng/mL * Daljit Monreal 11/29/2024 10:49:16 PM EDT > See phone encounter * Procedure Codes: G 2211 Complex e/m visit add on, G8420 BMI<30 AND >=22 CALC & DOCU, G8783 BP SCR PRFRM RCMDD DEFIND SCR INTVL, G8752 MOST RECENT SYSTOLIC BP < 140MM HG, G8754 MOST RECENT DIASTOLIC BP < 90MM HG, 3074F SYST BP LT 130 MM HG, 3078F DIAST BP < 80 MM HG, 3017F COLORECTAL CA SCREEN DOC REV * Preventive Medicine: Screening / Special Tests: C olonoscopy , Dr Lal, , polyps. * Follow Up: 6 Months * Images: Billing Information: * Visit Code: 49162 Office Visit, Est Pt., Level 3. * Procedure Codes: G2211 Complex e/m visit add on. G8420 BMI<30 AND >=22 CALC & DOCU. G8783 BP SCR PRFRM RCMDD DEFIND SCR INTVL. G8752 MOST RECENT SYSTOLIC BP < 140MM HG. G8754 MOST RECENT DIASTOLIC BP < 90MM HG. 3074F SYST BP LT 130 MM HG. 3078F DIAST BP < 80 MM HG. 3017F COLORECTAL CA SCREEN DOC REV. * Electronic signature of Daljit Monreal MD on 12/03/2024 at 06:40 AM EDT Sign off status: Pending * Provider: Daljit Monreal M.D. Date: Generated for Paulie godwin/[employer]/eTransmitting on: 06:40 AM EDT History and Physical Notes * HPI (History of Present Illness) Category Sub-Category Detail Notes Category Not es Cardiology Short of Breath He has been having some nocturnal leg cramps Chest Pain Palpitations Leg Edema HPI Patient is here today for Pt is here today for a 6 month check up. Pt is not fasting Examination Category Sub-Category Detail Notes Category Not es General Examination Heart: RSR Lungs: clear to auscultatio n Extremities: no leg edema General Appearance: NAD. Moves slowly on to exam table
--- OUTSIDE RECORDS SUMMARY | 2024-11-24 05:23 | XMS_ITS ---
Author Organization [facility] Address [address] [facility] [address] [facility] [address] [place], [place] [id number] Care Team Providers Care Registered Nurse Midwife Name Role Phone Daljit Monreal Primary Care Provider [phone] REASON FOR VISIT LDCT scan due Encounters Encounter Location Date Provider Diagnosis [facility] [address] [place], [place] [id number] 11/24/2024 Daljit Monreal Encounter for screening for malignant neoplasm of respiratory organs Z12.2 and Personal history of nicotine dependence Z87.891 Assessments Encounter Date Diagnosis (ICD Code) Assessment Notes Treatment Notes Treatment Clinical Notes Section Notes 11/24/2024 Encounter for screening for malignant neoplasm of respiratory organs (ICD-10 - Z12.2) 11/24/2024 Personal history of nicotine dependence (ICD-10 - Z87.891) Plan Of Treatment Pending Test Test Name Order Date CT Scan : Chest, low dose 11/24/2024 Next Appt Details Provider Name:Daljit Edgar et, 05/20/2025 09:00:00 AM, [address], [address], [place], [place], [id number], Progress Notes * Lacho KINGDOB: [birth year] (69 yo M)Acc No.[id number]:11/24/2024 Patient: Lacho BARRIENTOS :1955 A ge:69 Y S ex:Male Address:[address] [place], [address] Subjective: * Chief Complaints: * L DCT scan due * Medical History: * Surgical History: * Hospitalization/Major Diagno stic Procedure: * Medications: Objective: * Vitals: * Physical Examination: Assessment: * Assessment: 1. E ncounter for screening for malignant neoplasm of respiratory organs - Z12.2 (Primary) 2 . P ersonal history of nicotine dependence - Z87.891 Plan: * Treatment: 2.?Personal history of nicotine dependence?Imaging: CT Scan : Chest, low dose* Rosa Russo 11/24/2024 09:2 8:19 AM EDT >sent to [facility] for a LDCT scan * Procedure Codes: * true * Date: Generated for Paulie godwin/Paco/Sam on: 1 06:41 AM EDT
--- NOTE | 2024-12-03 | CT_ITS ---
FINAL REPORT TECHNIQUE: Thin section axial images were obtained through the lungs using a low-dose technique per lung cancer screening protocol. Reconstruction images were obtained using the axial data. Exam was performed using dose reduction technique. This study was performed with techniques to keep radiation doses as low as reasonably achievable (ALARA). Individualized dose reduction techniques using automated exposure control or adjustment of mA and/or kV according to the patient's size were employed. 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 Multiple calcified granulomas are noted. No additional suspicious nodules are seen. Lymph nodes: No thoracic lymphadenopathy. Mediastinum: Heart size is normal. Prominent coronary artery calcifications are present. Pleura/pericardium: No pleural or pericardial effusion. Other: No acute abnormality in the upper abdomen. IMPRESSION: No suspicious pulmonary nodule or mass. Lung RADS: 1S, the S designation for prominent coronary artery calcifications. Recommendation: 12-month follow-up LDCT. Reviewed, Interpreted and Dictated by Chinyere Ag MD Transcribed by Alicia Oliva Authenticated and . [facility]
--- OUTSIDE RECORDS SUMMARY | 2024-12-03 06:36 | XMS_ITS | Clinical Summary ---
Author Organization [facility] , [facility] Address [address] [place] [address] Phone Care Team Providers Care Salesperson Surgical Appliances Name Role Phone Anita CARTER, Marcio Vang Unavailable [phone] VINICIO CARTER, DENZEL Unavailable [phone] Reason for Visit and Chief Complaint MRI Problems Includes: Problems addressed during this encounter and other active Problems All Visits Onset Date Resolved Date Provider Condition S tatus Joint Pain Shoulder Right 02/27/2021 Marcio Howard MD Active Last Documented On 2 8:53AM ; [facility] Plan of Treatment No Plan of Treatment Recorded Assessments Includes: Assessments from this encounter No Assessments Recorded Medical Equipment - Implanted Devices Includes: Current Devices No Medical Equipment Recorded Medications Includes: Medications discussed during this encounter and other current Medications Current Medications (continue as prescribed) Cefdinir 300 MG Oral Capsule 06/30/2021 Provider: JOSEPH BAUTISTA MD Diagnosis: Last Documented On 2 11:55AM By Elif Rodriguez [facility] HYDROcodone-Acetaminophen 5-325 MG Oral Tablet 022 Provider: JOSEPH BAUTISTA MD Diagnosis: Last Documented On 2 11:55AM By Elif Rodriguez [facility] Medications Administered Includes: Administered Medications from this encounter No Administered Medications Recorded Results Includes: Results discussed during this encounter No Results Recorded For Specified Dates History of Present Illness Includes: History of Present Illness from this encounter No History of Present Illness Recorded Social History No Social History Recorded - Smoking Status Unknown Medical History Includes: Medical History addressed during this encounter No Medical History Recorded Family History Includes: Family History addressed during this encounter No Family History Recorded Review of Systems Includes: Review of Systems from this encounter No Review of Systems Recorded Mental Status Includes: Mental Status from this encounter No Mental Status Recorded Functional Status Includes: Functional Status from this encounter No Functional Status Recorded Physical Exam Includes: Physical Exam from this encounter No Physical Exam Recorded Allergies Includes: Active Allergies No Known Allergies Encounters Encounter Provider Location Date Check-In Time Check-Out Time Diagnosis MRI [facility] 02/01/2021 7:48AM 8:28AM Insurance Includes: Active Insurance Policies Plan Name Member ID Group # Subscriber Relationship Effect umm Dates 1 - Medicare Part B [facility] [id number] Lachobenson Daniel Johnny 02/19/2020 - Unknown 2 - [employer]IG[employer] MEDICARE SUPPLEMENT [id number] Lacho T Fredy Turner 02/19/2020 - Unknown Clinical Notes Includes: Clinical Notes from this encounter No Clinical Notes Recorded
--- OUTSIDE RECORDS SUMMARY | 2024-12-03 06:37 | XMS_ITS | Clinical Summary ---
Author Organization [facility] , [facility] Address [address] [place] [address] Phone Care Team Providers Care Hearing Aid Technician Name Role Phone Anita CARTER, Marcio Vang Unavailable [phone] VINICIO CARTER, DENZEL Unavailable [phone] Reason for Visit and Chief Complaint [Patient Encounter] Problems Includes: Problems addressed during this encounter and other active Problems All Visits Onset Date Resolved Date Provider Condition S tatus Joint Pain Shoulder Right 02/27/2021 Marcio Howard MD Active Last Documented On 2 8:53AM ; [facility] Plan of Treatment Pending Tests Order Diagnosis Results Due Ordering P christiane Radiology - MRI MRI Shoulder 02/08/21 Marcio Howard MD Last Documented On 1 3:23PM ; [facility] Assessments Includes: Assessments from this encounter No Assessments Recorded Medical Equipment - Implanted Devices Includes: Current Devices No Medical Equipment Recorded Medications Includes: Medications discussed during this encounter and other current Medications Current Medications (continue as prescribed) Cefdinir 300 MG Oral Capsule 06/30/2021 Provider: JOSEPH BAUTISTA MD Diagnosis: Last Documented On 2 11:55AM By Elif Rodriguez [facility] HYDROcodone-Acetaminophen 5-325 MG Oral Tablet 022 Provider: JOSEPH BAUTISTA MD Diagnosis: Last Documented On 2 11:55AM By Elif Lin ; [facility] Medications Administered Includes: Administered Medications from this [...] Location Date Check-In Time Check-Out Time Diagnosis [Patient Encounter] Marcio Howard MD 12/15/2021 3:23PM 11:59PM Insurance Includes: Active Insurance Policies Plan Name Member ID Group # Subscriber Relationship Effect umm Dates 1 - Medicare Part B [facility] [id number] Lacho Turner 02/19/2020 - Unknown 2 - [employer] MEDICARE SUPPLEMENT [id number] Lacho Turner 02/19/2020 - Unknown Clinical Notes Includes: Clinical Notes from this encounter No Clinical Notes Recorded
--- OUTSIDE RECORDS SUMMARY | 2024-12-03 06:37 | XMS_ITS | Clinical Summary ---
Author Organization [facility] , [facility] Address [address] [place] [address] Phone Care Team Providers Care School Lunch Monitor Name Role Phone Anita CARTER, Marcio Vang Unavailable [phone] VINICIO CARTER, DENZEL Unavailable [phone] Reason for Referral Date Encounter Description Provider Reason for Referral 10/30/21 Follow Up Marcio Howard MD Refe rral To Physician; Referral To Physician Reason for Visit and Chief Complaint The Chief Complaint is: Right shoulder pain Problems Includes: Problems addressed during this encounter and other active Problems All Visits Onset Date Resolved Date Provider Condition S tatus Joint Pain Shoulder Right 02/27/2021 Marcio Howard MD Active Last Documented On 2 8:53AM ; [facility] Plan of Treatment SURGICAL PLAN: 66 year old male with a full thickness rotator cuff tear. 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 Tis patient has exhausted 12 weeks of conservative treatment. Conservative measures have included rest, activity modification, oral anti-inflammatories, exercise treatment and local pain reduction modalities. We had a discussion about surgery. I explained the procedure and recovery to the patient. He wishes to proceed. The patient understands the risk of surgery to include but are not limited to infection, possible nerve damage, tendon or vessel injury, scar sensitivity and anesthesia.The patient understands the need for postoperative rehabilitation and therapy. The patient had no further questions regarding the surgery or potential risks. Procedure: Right shoulder scope with rotator cuff repair, tenodesis using Arthrex Arc abduction sling needed post operatively for immobilization - Last Documented On 11/03/2021 12:47PM ; [facility] Fall Risk Assessment: This patient has been identified as a fall risk. Balance/gait along with postural blood pressure, vision and home fall hazards have been assessed. Medications have been reviewed, and recommendations made with regard to contributing factors for future falls. Plan of care: Consideration of vitamin D supplementation along with balance and strength training with consideration for formal physical therapy has been discussed with the patient. - Last Documented On 11/03/2021 12:47PM ; [facility], [facility] DO YOU SEE CARDIOLOGY? NO DO YOU SEE A BAGGING MACHINE OPERATOR? NO ARE YOU A DIABETIC? NO IF YES A1C? DO YOU WEAR A CPAP/BIPAP? NO HAVE YOU EVER BEEN TOLD YOU NEED A SLEEP STUDY? NO DO YOU SEE RHEUMATOLOGY? NO DO YOU SEE NEUROLOGY? NO ANY HISTORY OF INFECTIOUS DISEASE? (MRSA, STAPH, ETC.) 40-45 YEARS AGO HAS HAD A STAPH INFECTION IN HIS LEFT KNEE. DO YOU TAKE BLOOD THINNERS? NO DO YOU SEE PAIN MANAGEMENT? NO - Last Documented On 11/03/2021 12:47PM ; [facility] Pending Tests Order Diagnosis [facility] - MRI MRI Shoulder 02/08/21 Marcio Howard MD Last Documented On 1 3:23PM ; [facility] Instructions to patient Intervention and counseling on cessation of tobacco use Last Documented On 2 8:02AM ; [facility], [facility] Lose weight Last Documented On 2 8:02AM ; [facility] Assessments Includes: Assessments from this encounter Findings right shoulder full-thickness rotator cuff tear - Last Documented On 11/03/2021 12:47PM ; [facility] Instructions Includes: Instructions from this encounter Instructions to patient Intervention and counseling on cessation of tobacco use Last Documented On 2 8:02AM ; [facility], [facility] Lose weight Last Documented On 2 8:02AM ; [facility] Medical Equipment - Implanted Devices Includes: Current Devices No Medical Equipment Recorded Medications Includes: Medications discussed during this encounter and other current Medications Current Medications (continue as prescribed) Cefdinir 300 MG Oral Capsule 06/30/2021 Provider: JOSEPH BAUTISTA MD Diagnosis: Last Documented On 2 11:55AM By Elif Lin ; [facility] HYDROcodone-Acetaminophen 5-325 MG Oral Tablet 04/25/2 022 Provider: JOSEPH BAUTISTA MD Diagnosis: Last Documented On 2 11:55AM By Elif Lin ; [facility] Medications Administered Includes: Administered Medications from this encounter No Administered Medications Recorded Vital Signs Includes: Vital Signs from this encounter Vital Name 10/30/2021 08:14A Blood Pressure Sitting (mmHg) 111/73 Pulse Rate-Sitting (bpm) 67 Height (in) 69 Weight (lb) 196 Body Mass Index (kg/m2) 28.9 Body Surface Area (m2) 2.0 Note: cb Last Documented: On 10/30/2021 8:15AM ; [facility] Results Includes: Results discussed during this encounter No Results Recorded For Specified Dates History of Present Illness Includes: History of Present Illness from this encounter NAVIN Daniel is a 66 year old male. - Allergy list reviewed - Problem list reviewed - Medication reconciliation performed - Medication list reviewed - Medication list reviewed - Previous history of new onset pain Injury is not work related or an automotive accident - Patient pain level from 1-10: 8 - No previous treatment. 66 year old male presents for follow up today on his right shoulder rotator cuff tear. I previously saw him in August and we had a discussion about surgical intervention to repair his rotator cuff, however he was busy with work and was unable to proceed until fall. Social History Description Last Updated Tobacco use 10/30/2021 Last Documented On 2 12:47PM ; [facility] Is a smoker 08/28/2021 Last Documented On 2 8:02AM ; [facility] Caffeine use 01/25/2021 Last Documented On 2 8:02AM ; [facility] Exercising regularly 01/25/2021 Last Documented On 2 8:02AM ; [facility] No recent change in diet 01/25/2021 Last Documented On 2 8:02AM ; [facility] Not using alcohol 01/25/2021 Last Documented On 2 8:02AM ; [facility] Not using drugs 01/25/2021 Last Documented On 2 8:02AM ; [facility] Yes, current smoker. 01/25/2021 Last Documented On 2 8:02AM ; [facility] Smoker 01/25/2021 Last Documented On 2 8:02AM ; [facility], [facility] Smoking Status Unknown Procedures and Surgical History Includes: Procedures from this encounter Procedures Code Diagnosis Performing Provider Service L ocation Service Date intervention and counseling on cessation of tobacco use 4000F Last Documented On 2 8:02AM ; [facility], [facility] use of tobacco assessment performed 1000F Last Documented On 2 8:02AM ; [facility], [facility] no influenza immunization patient refuse d Last Documented On 2 8:02AM ; [facility] patient screened for future fall risk 3288F Last Documented On 2 8:02AM ; [facility] patient screened for future fall risk: documentation of any fall with injury in past year 1100F Last Documented On 2 8:15AM ; [facility], [facility] follow-up visit not in one month with PC P for elevated BP Last Documented On 2 8:02AM ; [facility], [facility] referral to physician Last Documented On 2 8:02AM ; [facility], [facility] no referral to physician Last Documented On 2 8:02AM ; [facility], [facility] weight control goals: not including weig ht gain Last Documented On 2 8:02AM ; [facility] Surgical History Last Updated History of hernia repair 01/25/2021 Last Documented On 2 8:02AM ; [facility], [facility] Medical History Includes: Medical History addressed during this encounter Description Last Updated History of arthritis 01/25/2021 Last Documented On 2 8:02AM ; [facility], [facility] No recent immunization for flu 1 Last Documented On 2 8:02AM ; [facility] No recent immunization for pneumococcal pneumonia 01/25/2021 Last Documented On 2 8:02AM ; [facility], [facility] Family History Includes: Family History addressed during this encounter Description Last Updated Family history of heart disease 01/26/20 21 Last Documented On 2 8:02AM ; [facility] Review of Systems Includes: Review of Systems from this encounter Systemic: Not feeling tired, no recent weight loss, and no recent weight gain. Head: No headache and no sinus pain. Eyes: No vision problems and no Cataracts. Glasses/Contacts. No Glaucoma. Otolaryngeal: No hearing loss and no tinnitus. Cardiovascular: No chest pain or discomfort, no palpitations, no Hypertension, and no High Cholesterol. Pulmonary: No daytime asthma symptoms and no chronic cough. No wheezing. Gastrointestinal: No heartburn and no abdominal pain. No Indigestion, no Acid Reflux, no Peptic Ulcer, no GI Stomach Bleed, and no Ulcers. Endocrine: No hot flashes, no muscle weakness, no Diabetes, no Hypothyroid, and no Hyperthyroid. Hematologic: No easy bleeding, no tendency for easy bruising, and no Anemia. Musculoskeletal: Arthritis. No lower back pain. No soft tissue swelling. Pain localized to one or more joints. Neurological: No dizziness, no convulsions, and no numbness. Psychological: No anxiety, no emotional lability, no depression, and no insomnia. Not crying for no reason. Skin: No dry skin. No Ulcers, no Scars, and no rash. Allergic and Immunologic: No complaint of seasonal allergic reaction. Mental Status Includes: Mental Status from this encounter Description No anxiety Functional Status Includes: Functional Status from this encounter No Functional Status Recorded Physical Exam Includes: Physical Exam from this encounter Allergies Includes: Active Allergies No Known Allergies Encounters Encounter Provider Location Date Check-In Time Check- Out Time Diagnosis Follow Up Marcio Howard MD [facility] 2 8:09AM 8:34AM Insurance Includes: Active Insurance Policies Plan Name Member ID Group # Subscriber Relationship Effect umm Dates 1 - Medicare Part B [facility] [id number] Lacho T Fredy Turner 02/19/2020 - Unknown 2 - [employer] MEDICARE SUPPLEMENT [id number] [place] Self 02/19/2020 - Unknown Clinical Notes Includes: Clinical Notes from this encounter No Clinical Notes Recorded
--- OUTSIDE RECORDS SUMMARY | 2024-12-03 06:38 | XMS_ITS ---
Care Plan - [facility], [facility] Created on: December 03, 2024 Lacho Daniel : 1955 Sex: Male Author Organization [facility] , [facility] Address [address] [place] [address] Phone Care Team Providers Care Lithograph Printer Name Role Phone Anita CARTER, Marcio Vang Unavailable [phone] VINICIO CARTER, DENZEL Unavailable [phone]
--- OUTSIDE RECORDS SUMMARY | 2024-12-03 06:39 | XMS_ITS | Clinical Summary ---
Author Organization Healthcare Address [address] [place] [address] Care Team Providers Care Wood Router Hand Name Role Phone Unavailable Primary Care Provider [...]
--- OUTSIDE RECORDS SUMMARY | 2024-12-03 06:39 | XMS_ITS | Clinical Summary ---
Author Organization [facility] , [facility] Address [address] [place] [address] Phone Care Team Providers Care Mold Tooler Name Role Phone Anita CARTER, Marcio Vang Unavailable [phone] VINICIO CARTER, DENZEL Unavailable [phone] Reason for Referral Date Encounter Description Provider Reason for Referral 02/27/21 Follow Up Marcio Howard MD Refe rral To Physician Reason for Visit and Chief Complaint The Chief Complaint is: Right shoulder pain Problems Includes: Problems addressed during this encounter and other active Problems Current Visit Onset Date Resolved Date Provider Cate alexander Status Joint Pain Shoulder Right 02/27/2021 Marcio Howard MD Active Last Documented On 2 8:53AM ; [facility], [facility] Plan of Treatment NON SURGICAL PLAN: I HAD A DISCUSSION WITH THE PATIENT TODAY IN THE OFFICE. I HAVE REVIEWED HIS MRI. HE DOES NOT WISH TO PROCEED WITH SURGERY AT THIS TIME BECAUSE OF HIS BUSY WORK SCHEDULE. HE WISHES TO HOLD OFF UNTIL LATER THIS YEAR IF HE CAN. IF HIS PAIN SHOULD BECOME WORSE IN THE NEAR FUTURE, I LET HIM KNOW HE CAN UTILIZE A STEROID INJECTION TO HELP HIS PAIN. HE IS UNDERSTANDING OF THIS. WE WILL CALL IS HE NEEDS THIS. HE HAS NO FURTHER QUESTIONS. FOLLOW UP: 6 MONTHS - Last Documented On 03/17/2021 8:30AM ; [facility], [facility] Pending Tests Order Diagnosis Results Due Ordering P rovider Radiology - MRI MRI Shoulder 02/08/21 Marcio Howard MD Last Documented On 1 3:23PM ; [facility], [facility] Instructions to patient Intervention and counseling on cessation of tobacco use Last Documented On 2 8:54AM ; [facility], [facility] Lose weight Last Documented On 2 8:54AM ; [facility], [facility] Assessments Includes: Assessments from this encounter Findings RIGHT SHOULDER FULL THICKNESS ROTATOR CUFF TEAR - Last Documented On 03/17/2021 8:30AM ; [facility], [facility] Instructions Includes: Instructions from this encounter Instructions to patient Intervention and counseling on cessation of tobacco use Last Documented On 2 8:54AM ; [facility], [facility] Lose weight Last Documented On 2 8:54AM ; [facility] Medical Equipment - Implanted Devices Includes: Current Devices No Medical Equipment Recorded Medications Includes: Medications discussed during this encounter and other current Medications Current Medications (continue as prescribed) Cefdinir 300 MG Oral Capsule 06/30/2021 Provider: JOSEPH BAUTISTA MD Diagnosis: Last Documented On 2 11:55AM By Elif Rodriguez [facility] HYDROcodone-Acetaminophen 5-325 MG Oral Tablet 022 Provider: JOSEPH BAUTISTA MD Diagnosis: Last Documented On 2 11:55AM By Elif Lin ; [facility], [facility] Medications Administered Includes: Administered Medications from this encounter No Administered Medications Recorded Vital Signs Includes: Vital Signs from this encounter Vital Name 02/27/2021 09:07A Blood Pressure Sitting (mmHg) 129/79 Pulse Rate-Sitting (bpm) 69 Height (in) 69 Weight (lb) 200.2 Body Mass Index (kg/m2) 29.6 Body Surface Area (m2) 2.1 Note: tnr Last Documented: On 02/27/2021 9:08AM ; [facility], [facility] Results Includes: Results discussed during this encounter No Results Recorded For Specified Dates History of Present Illness Includes: History of Present Illness from this encounter NAVIN Daniel is a 65 year old male. - Allergy list reviewed - Problem list reviewed - Medication reconciliation performed - Medication list reviewed - Previous history of new onset pain 11/2020 - Sharp pain Symptoms - Patient pain level from 1-10: 8 - No previous treatment. PATIENT IS IN TO FOLLOW UP ON HIS RIGHT SHOULDER. HIS PAIN IN INTERMITTENT. HE HAS HAD AN MRI OF HIS SHOULDER AND IS HERE TO GO OVER THE RESULTS. Social History Description Last Updated Caffeine use 01/25/2021 Last Documented On 2 8:53AM ; [facility] Exercising regularly 01/25/2021 Last Documented On 2 8:53AM ; [facility] No recent change in diet 01/25/2021 Last Documented On 2 8:53AM ; [facility] Not using alcohol 01/25/2021 Last Documented On 2 8:53AM ; [facility] Not using drugs 01/25/2021 Last Documented On 2 8:53AM ; [facility] Yes, current smoker. 01/25/2021 Last Documented On 2 8:53AM ; [facility] Smoker 01/25/2021 Last Documented On 2 8:53AM ; [facility], [facility] Smoking Status Unknown Procedures and Surgical History Includes: Procedures from this encounter Procedures Code Diagnosis Performing Provider Service L ocation Service Date intervention and counseling on cessation of tobacco use 4000F Last Documented On 2 8:54AM ; [facility], [facility] use of tobacco assessment performed 1000F Last Documented On 2 8:54AM ; [facility], [facility] no influenza immunization Last Documented On 2 8:54AM ; [facility], [facility] referral to physician Last Documented On 2 8:54AM ; [facility], [facility] an X-ray was performed [id number] Last Documented On 2 8:54AM ; [facility] Surgical History Last Updated History of hernia repair 01/25/2021 Last Documented On 2 8:53AM ; [facility], [facility] Medical History Includes: Medical History addressed during this encounter Description Last Updated History of arthritis 01/25/2021 Last Documented On 2 8:53AM ; [facility] No recent immunization for flu Last Documented On 2 8:53AM ; [facility], [facility] No recent immunization for pneumococcal pneumonia 01/25/2021 Last Documented On 2 8:53AM ; [facility] Family History Includes: Family History addressed during this encounter Description Last Updated Family history of heart disease 01/26/20 21 Last Documented On 2 8:53AM ; [facility] Review of Systems Includes: Review of [...] Time Diagnosis Follow Up Marcio Howard MD [facility] 2 8:55AM 9:15AM Insurance Includes: Active Insurance Policies Plan Name Member ID Group # Subscriber Relationship Effect umm Dates 1 - Medicare Part B [facility] [id number] Lacho T Fredy Turner 02/19/2020 - Unknown 2 - [employer] MEDICARE SUPPLEMENT [id number] Lacho T Daniel Self 02/19/2020 - Unknown Clinical Notes Includes: Clinical Notes from this encounter No Clinical Notes Recorded
--- OUTSIDE RECORDS SUMMARY | 2024-12-03 06:41 | XMS_ITS ---
Author Organization [facility] Address [address] [place] [address] Phone Care Team Providers Care Claim Inspector Name Role Phone Anita CARTER, Marcio Vang Unavailable [phone] DENZEL MOONEY MD Unavailable [phone] Reason for Referral Date Encounter Description Provider Reason for Referral 10/30/21 Follow Up Marcio Howard MD Refe rral To Physician; Referral To Physician 08/28/21 Follow Up Marcio Howard MD Refe rral To Physician; Referral To Physician 02/27/21 Follow Up Marcio Howard MD Refe rral To Physician 01/25/21 Follow Up Marcio Howard MD Refe rral To Physician Problems Includes: Active, inactive, and resolved Problems All Visits Onset Date Resolved Date Provider Condition S tatus Joint Pain Shoulder Right 02/27/2021 Marcio Howard MD Active Last Documented On 2 8:53AM ; [facility] Plan of Treatment Pending Tests Order Diagnosis Results Due Ordering P rovider Radiology - MRI MRI Shoulder 02/08/21 Marcio Howard MD Last Documented On 1 3:23PM ; [facility] Instructions to patient Intervention and counseling on cessation of tobacco use Last Documented On 2 8:02AM ; [facility] Lose weight Last Documented On 2 8:02AM ; [facility] Intervention and counseling on cessation of tobacco use Last Documented On 2 8:25AM ; [facility] Lose weight Last Documented On 2 8:25AM ; [facility] Intervention and counseling on cessation of tobacco use Last Documented On 2 8:54AM ; [facility] Lose weight Last Documented On 2 8:54AM ; [facility] Intervention and counseling on cessation of tobacco use Last Documented On 1 9:49AM ; [facility] Lose weight Last Documented On 1 9:49AM ; [facility] Assessments Includes: Assessments for all patient encounters Findings Encounter Date No diagnosis of underweight Follow Up with Marcio Howard MD 08/28/2021 Last Documented On 2 12:46PM ; [facility] Instructions Includes: Instructions for all patient encounters Instructions to patient Intervention and counseling on cessation of tobacco use Last Documented On 2 8:02AM ; [facility] Lose weight Last Documented On 2 8:02AM ; [facility] Intervention and counseling on cessation of tobacco use Last Documented On 2 8:25AM ; [facility] Lose weight Last Documented On 2 8:25AM ; [facility] Intervention and counseling on cessation of tobacco use Last Documented On 2 8:54AM ; [facility] Lose weight Last Documented On 2 8:54AM ; [facility] Intervention and counseling on cessation of tobacco use Last Documented On 1 9:49AM ; [facility] Lose weight Last Documented On 1 9:49AM ; [facility] Medical Equipment - Implanted Devices Includes: Current and historical Devices No Medical Equipment Recorded Medications Includes: Current and historical Medications Current Medications (continue as prescribed) Cefdinir 300 MG Oral Capsule 06/30/2021 Provider: JOSEPH BAUTISTA MD Diagnosis: Last Documented On 2 11:55AM By DARBY Jara HYDROcodone-Acetaminophen 5-325 MG Oral Tablet 022 Provider: JOSEPH BAUTISTA MD Diagnosis: Last Documented On 2 11:55AM By [facility] Medications Administered Includes: Administered Medications in patient's chart No Administered Medications Recorded Results Includes: Results from 12/04/2023 through 12/03/2024 No Results Recorded For Specified Dates History of Present Illness History of Present Illness not supported for this document type No History of Present Illness Recorded Social History Description Last Updated Tobacco use 10/30/2021 Last Documented On 2 12:47PM ; [facility] Is a smoker 08/28/2021 Last Documented On 2 12:46PM ; [facility], [facility] Caffeine use 01/25/2021 Last Documented On 1 3:23PM ; [facility], [facility] Exercising regularly 01/25/2021 Last Documented On 1 3:23PM ; [facility] No recent change in diet 01/25/2021 Last Documented On 1 3:23PM ; [facility] Not using alcohol 01/25/2021 Last Documented On 1 3:23PM ; [facility] Not using drugs 01/25/2021 Last Documented On 1 3:23PM ; [facility], [facility] Yes, current smoker. 01/25/2021 Last Documented On 1 3:23PM ; [facility] Smoker 01/25/2021 Last Documented On 1 3:23PM ; [facility] Smoking Status Unknown Procedures and Surgical History Surgical History Last Updated History of hernia repair 01/25/2021 Last Documented On 1 3:23PM ; [facility] Medical History Includes: Medical History in patient's chart Description Last Updated History of arthritis 01/25/2021 Last Documented On 1 3:23PM ; [facility] No recent immunization for flu 1 Last Documented On 1 3:23PM ; [facility] No recent immunization for pneumococcal pneumonia 01/25/2021 Last Documented On 1 3:23PM ; [facility] Family History Includes: Family History in patient's chart Description Last Updated Family history of heart disease 01/26/20 Last Documented On 1 3:23PM ; [facility], [facility] Review of Systems Review of Systems not supported for this document type No Review of Systems Recorded Mental Status No Mental Status Recorded Functional Status No Functional Status Recorded Physical Exam Physical Exam not supported for this document type No Physical Exam Recorded Immunizations Includes: Immunizations in patient's chart Vaccine Dose # Date Site Reaction(s) Status Source Influenza 1 08/28/2021 Complete (Refused - Patient objection) [facility], [facility] Last Documented On 2 11:59AM ; [facility], [facility] PCV (Pneumovax 23) 1 08/28/2021 Complete (Refused - Patient objection) [facility] Last Documented On 2 11:59AM ; [facility], [facility] Allergies Includes: Active, inactive, and resolved Allergies No Known Allergies Insurance Includes: Active Insurance Policies Plan Name Member ID Group # Subscriber Relationship Effect umm Dates 1 - Medicare Part B [facility] [id number] Lacho Turner 02/19/2020 - Unknown 2 - [employer] MEDICARE SUPPLEMENT [id number] Lacho Turner 02/19/2020 - Unknown Clinical Notes Includes: Signed Clinical Notes starting from 02/01/2022 No Clinical Notes Recorded
--- OUTSIDE RECORDS SUMMARY | 2024-12-03 06:41 | XMS_ITS | Patient Health Record ---
[facility] [address] [facility] [address] [id number] Care Team Providers Care Assistant Producer Name Role Phone Daljit Monreal Primary Care Provider Ricky Monae Unavailable [phone] Darren Lowery Unavailable [phone] Ida Garcia Unavailable [phone] Allergies Allergen (clinical drug ingredient) Drug/Non Drug Allergy documented on EMR Reaction Allergy Type Onset Date Status Bee Sting Unknown Allergy Active codeine Codeine abdominal pain Drug Allergy Ac tive Results Component Value Reference Range Notes P-Comprehensive Metabolic Pa marcus (CMP) Reviewed date:11/29/2024 10:49:40 PM Interpretation:Normal Performing Lab: Notes/Report: Test performed by [facility], [address] , [address], [place] [address] Abbe Beard MD, [employer] CLIA: [id number] Sodium 140 135-145 mmol/L Potassium 4.7 3.5-5.3 [...] 43 Performing Lab: Notes/Report: Test performed by [facility] [address] [place] [address] , [address], [place] [address] Abbe Beard MD, [employer] CLIA: [id number] Lipid Panel Footnote See Below *Based on optimal reference values. Please refer to the DOS for additional information regarding diagnostic lipid reference ranges, patient management based on the recently updated lipid guidelines ([place] [employer]/[place] [employer] Task Force on Clinical Practice [...] Interpretation:2.0 Performing Lab: Notes/Report: Test performed by [facility] [address] [place] [address] , [place] [address] Abbe Beard MD, [employer] CLIA: [id number] Magnesium 2.0 1.6-2.4 mg/dL P-PSA Reviewed date:11/29/2024 10:49:40 PM Interpretation:0.6 Performing Lab: Notes/Report: Test performed by [facility] [address] [place] [address] , [place] [address] Abbe Beard MD, [employer] CLIA: [id number] PSA 0.60 <4.00 ng/mL Please note this is an ultrasensitive PSA assay with a lower limit of detection of 0.014 ng/mL. This test is performed by the [employer] ECLIA methodology. Values obtained with different assay methods or kits cannot be directly compared. Urinalysis - Inhouse Reviewed date:09/15/2024 12:36:45 PM Interpretation: Performing Lab: Notes/Report: Color/Clarity Yellow/Clear Leuk Neg Nitrite Neg Urobili 3.2 Protein Neg pH 6.0 Blood Trace-Intact Sp. Gr. 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) Active confirmed Problem Constipation (03081940) Constipation (K59.00) Active confirmed Problem Acute exacerbation of chronic obstructive airways disease (932844225) COPD with exacerbation (J44.1) Active confirmed Problem Primary generalised osteoarthritis (185758809) Primary generalized (osteo)arthritis (M15.0) Active confirmed Problem COPD - Chronic obstructive pulmonary disease (84061502) Chronic obstructive pulmonary disease, unspecified COPD type (J44.9) Active confirmed Problem Tobacco use (196986078) Tobacco use disorder (F17.200) Active confirmed Problem Heart failure (42621785) Congestive heart failure, unspecified HF chronicity, unspecified heart failure type (I50.9) Active confirmed Vital Signs Heart Rate 81 /min 11/19/2024 Blood pressure diastolic 70 mm Hg 11/19/2024 Height 69 in 11/19/2024 Blood pressure systolic 100 mm Hg 11/19/2024 Weight 188.2 lbs 11/19/2024 BMI 27.79 kg/m2 11/19/2024 Encounters Encounter Location Date Provider [facility] [address] [place] [phone] 01/28/2024 Daljit Monreal Constipation K59.00 and History of colon polyps Z86.0100 [facility] [address] [place] [id number] 02/03/2024 Ida Garcia Bronchitis J40 [facility] [address] [place] [id number] 04/20/2024 Ricky Monae Acute bronchitis, unspecified organism J20.9 ; Chronic obstructive pulmonary disease, unspecified COPD type J44.9 and Tobacco use disorder F17.200 [facility] [address] [place] [id number] 04/24/2024 Ricky Monae COPD with exacerbati on J44.1 [facility] [address] [place], [place] [id number] 05/19/2024 Daljit Monreal Chronic obstructive pulmonary disease, unspecified COPD type J44.9 ; Tobacco use disorder F17.200 ; Primary generalized (osteo)arthritis M15.0 and ASCVD (arteriosclerotic cardiovascular disease) I25.10 [facility] [address] [place], [place] [id number] 09/15/2024 Darren Lowery 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 [facility] [address] [place], [place] [id number] 11/19/2024 Daljit Monreal ASCVD (arteriosclero tic cardiovascular disease) I25.10 ; Chronic obstructive pulmonary disease, unspecified COPD type J44.9 ; Primary generalized (osteo)arthritis M15.0 ; Screening for prostate cancer Z12.5 ; Flu vaccine refused Z28.21 and BMI 27.0-27.9,adult Z68.27 [facility] [address] [place] [id number] 01/15/2024 R Pola Monreal Screening for colon cancer Z12.11 [facility] [address] [place] [id number] 07/31/2024 R Pola Kapadiat Lumbar radiculopathy M54.16 [facility] [address] [place] [id number] 11/24/2024 R Pola Monreal Encounter for screen ing for malignant neoplasm of respiratory organs Z12.2 and Personal history of nicotine dependence Z87.891 [facility] [address] [facility] [address] [place] [id number] 11/29/2024 R Pola Monreal Assessments Encounter Date Diagnosis (ICD Code) Assessment Notes Treatment Notes Treatment Clinical Notes Section Notes 05/19/2024 Chronic obstructive pulmonary disease, unspecified COPD type (ICD-10 - J44.9) 05/19/2024 Tobacco use disorder (ICD-10 - F17.200) 04/24/2024 COPD with exacerbation (ICD-10 - J44.1) Complete medications. 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 (ICD-10 - Z02.4) 07/31/2024 Lumbar radiculopathy (ICD-10 - M54.16) 02/03/2024 Bronchitis (ICD-10 - J40) fluids, rest, supportive measures for fever/symptom relief 01/28/2024 Constipation (ICD-10 - K59.00) 01/28/2024 History of colon polyps (ICD-10 - Z86.0100) 01/15/2024 Screening for colon cancer (ICD-10 - Z12.11) 11/24/2024 Encounter for screening for malignant neoplasm of respiratory organs (ICD-10 - Z12.2) 11/24/2024 Personal history of nicotine dependence (ICD-10 - Z87.891) 11/19/2024 ASCVD (arteriosclerotic cardiovascular disease) (ICD-10 - I25.10) 11/19/2024 Primary generalized (osteo)arthritis (ICD-10 - M15.0) 04/20/2024 Tobacco use disorder (ICD-10 - F17.200) 05/19/2024 Primary generalized (osteo)arthritis (ICD-10 - M15.0) 11/19/2024 Screening for prostate cancer (ICD-10 - Z12.5) 05/19/2024 ASCVD (arteriosclerotic cardiovascular disease) (ICD-10 - I25.10) 11/19/2024 Flu vaccine refused (ICD-10 - Z28.21) 11/19/2024 BMI 27.0-27.9,adult (ICD-10 - Z68.27) Plan Of Treatment Pending Test Test Name Order Date CT Scan : Chest, low dose 11/24/2024 H-Lipid Panel 08/23/2020 Next Appt Details Provider Name:Daljit Allen, 05/20/2025 09:00:00 AM, [address], [place], [place], [id number], Insurance Providers Payer Name Payer Address Payer Phone Subscriber Number Group Number Insured Name Patient Relationship to Insured Coverage Start Date Coverage End Date MEDICARE PART B [address] [address] [place] [address] [id number] Lacho KING Self - patient is the insured [employer] MEDICARE SUPPLEMENT [address] [address] [place], [place] [id number] Lacho KING Self - patient is the insured Medications Administered Medication Instructions Date of Administration Dosage Notes Dexamethasone 12/10/2016 1.5 mL Dexamethasone 07/30/2017 1.5 mL Dexamethasone 04/18/2018 1.5 mL Dexamethasone 02/03/2024 1 mL Medical (General) History Medical History History ICD Code Tobacco addiction Osteo Arthritis ASCVD - s/p right coronary artery stent Cardiomyopathy Kidney stone Cataracts Surgical History Surgery Date(Month/Year) Hernia Repair X [...]
--- OUTSIDE RECORDS SUMMARY | 2024-12-03 06:41 | XMS_ITS | Clinical Summary ---
Author Organization [facility] , [facility] Address [address] [place] [address] Phone Care Team Providers Care Jet Wiper Name Role Phone Anita CARTER, Marcio Vang Unavailable [phone] VINICIO CARTER, DENZEL Unavailable [phone] Reason for Referral Date Encounter Description Provider Reason for Referral 08/28/21 Follow Up Marcio Howard MD Refe rral To Physician; Referral To Physician Reason for Visit and Chief Complaint The Chief Complaint is: Right shoulder pain Problems Includes: Problems addressed during this encounter and other active Problems All Visits Onset Date Resolved Date Provider Condition S tatus Joint Pain Shoulder Right 02/27/2021 Marcio Howard MD Active Last Documented On 2 8:53AM ; [facility] Plan of Treatment NON SURGICAL PLAN: This is a very active 66 year old male chiu with a full thickness rotator cuff tear. I believe he is weaker on physical exam today. 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 I recommended a steroid injection to help his symptoms. He doesn't wish to proceed with the injection today in the office. He gets good relief from ibuprofen when needed. We will schedule him to come back 2 months to discuss surgical intervention for his right shoulder. All questions have been answered at this time. - Last Documented On 09/01/2021 12:46PM ; [facility] Fall Risk Assessment: This patient has [...] with the patient. - Last Documented On 09/01/2021 12:46PM ; [facility], [facility] Pending Tests Order Diagnosis Results Due Ordering Rickie grnade Radiology - MRI MRI Shoulder 02/08/21 Marcio Howard MD Last Documented On 1 3:23PM ; [facility], [facility] Instructions to patient Intervention and counseling on cessation of tobacco use Last Documented On 2 8:25AM ; [facility], [facility] Lose weight Last Documented On 2 8:25AM ; [facility], [facility] Assessments Includes: Assessments from this encounter Findings - No diagnosis of underweight - Last Documented On 09/01/2021 12:46PM ; [facility], [facility] RIght shoulder full thickness rotator cuff tear - Last Documented On 09/01/2021 12:46PM ; [facility], [facility] Instructions Includes: Instructions from this encounter Instructions to patient Intervention and counseling on cessation of tobacco use Last Documented On 2 8:25AM ; [facility], [facility] Lose weight Last Documented On 2 8:25AM ; [facility], [facility] Medical Equipment - Implanted Devices Includes: Current Devices No Medical Equipment Recorded Medications Includes: Medications discussed during this encounter and other current Medications Current Medications (continue as prescribed) Cefdinir 300 MG Oral Capsule 06/30/2021 Provider: JOSEPH BAUTISTA MD Diagnosis: Last Documented On 2 11:55AM By Elif LOYA [facility] HYDROcodone-Acetaminophen 5-325 MG Oral Tablet 022 Provider: JOSEPH BAUTISTA MD Diagnosis: Last Documented On 2 11:55AM By Elif LOYA [facility] Medications Administered Includes: Administered Medications from this encounter No Administered Medications Recorded Vital Signs Includes: Vital Signs from this encounter Vital Name 08/28/2021 08:34A Blood Pressure Sitting (mmHg) 132/82 Height (in) 69 Weight (lb) 201 Body Mass Index (kg/m2) 29.7 Body Surface Area (m2) 2.1 Note: KI Last Documented: On 08/28/2021 8:34AM ; [facility], [facility] Results Includes: Results discussed during this encounter No Results Recorded For Specified Dates History of Present Illness Includes: History of Present Illness from this encounter HPI Lacho Daniel is a 66 year old male. - Allergy list reviewed - Problem list reviewed - Medication reconciliation performed - Medication list reviewed - Medication list reviewed - Previous history of new onset pain Injury is not work related or an automotive accident - Patient pain level from 1-10: 8 - No previous treatment. 66 year old male is in to follow up on his right shoulder. 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 We previously saw him in February of this year and had a full thickness rotator cuff tear. Social History Description Last Updated Is a smoker 08/28/2021 Last Documented On 2 12:46PM ; [facility], [facility] Caffeine use 01/25/2021 Last Documented On 2 8:25AM ; [facility], [facility] Exercising regularly 01/25/2021 Last Documented On 2 8:25AM ; [facility], [facility] No recent change in diet 01/25/2021 Last Documented On 2 8:25AM ; [facility], [facility] Not using alcohol 01/25/2021 Last Documented On 2 8:25AM ; [facility], [facility] Not using drugs 01/25/2021 Last Documented On 2 8:25AM ; [facility] Yes, current smoker. 01/25/2021 Last Documented On 2 8:25AM ; [facility] Smoker 01/25/2021 Last Documented On 2 8:25AM ; [facility] Smoking Status Unknown Procedures and Surgical History Includes: Procedures from this encounter Procedures Code Diagnosis Performing Provider Service L ocation Service Date intervention and counseling on cessation of tobacco use 4000F Last Documented On 2 8:25AM ; [facility], [facility] use of tobacco assessment performed 1000F Last Documented On 2 8:25AM ; [facility], [facility] no influenza immunization patient refuse d Last Documented On 2 11:57AM ; [facility], [facility] patient screened for future fall risk 3288F Last Documented On 2 11:58AM ; [facility], [facility] follow-up visit not in one month with PC P for elevated BP Last Documented On 2 11:58AM ; [facility] referral to physician Last Documented On 2 8:25AM ; [facility] no referral to physician Last Documented On 2 11:58AM ; [facility] weight control goals: not including weig ht gain Last Documented On 2 11:58AM ; [facility] an X-ray was performed 20167 Last Documented On 2 8:25AM ; [facility] Surgical History Last Updated History of hernia repair 01/25/2021 Last Documented On 2 8:25AM ; [facility] Medical History Includes: Medical History addressed during this encounter Description Last Updated History of arthritis 01/25/2021 Last Documented On 2 8:25AM ; [facility] No recent immunization for flu Last Documented On 2 8:25AM ; [facility] No recent immunization for pneumococcal pneumonia 01/25/2021 Last Documented On 2 8:25AM ; [facility] Family History Includes: Family History addressed during this encounter Description Last Updated Family history of heart disease 01/26/20 21 Last Documented On 2 8:25AM ; [facility] Review of Systems Includes: Review of [...] Exam Includes: Physical Exam from this encounter Immunizations Includes: Immunizations addressed during this encounter Vaccine Dose # Date Site Reaction(s) Status Source Influenza 1 08/28/2021 Complete (Refused - Patient objection) [facility], [facility] Last Documented On 2 11:59AM ; [facility] PCV (Pneumovax 23) 1 08/28/2021 Complete (Refused - Patient objection) [facility] Last Documented On 2 11:59AM ; [facility], [facility] Allergies Includes: Active Allergies No Known Allergies Encounters Encounter Provider Location Date Check-In Time Check-Out Time Diagnosis Follow Up Marcio Howard MD [facility] 08/29/19 22 8:31AM 8:36AM Underweight Insurance Includes: Active Insurance Policies Plan Name Member ID Group # Subscriber Relationship Effect umm Dates 1 - Medicare Part B [facility] [id number] Lacho Turner 02/19/2020 - Unknown 2 - [employer] SUPPLEMENT [id number] Lacho Turner 02/19/2020 - Unknown Clinical Notes Includes: Clinical Notes from this encounter No Clinical Notes Recorded
== END 2024-12-03 23:59 | disposition home or self-care (01) ==
LOC: RAD 06:35
PROVIDERS: PCP Family Medicine; Visit Provider Family Medicine
DX: I25.10 Atherosclerotic heart disease of native coronary artery without angina pectoris (principal); Z12.2 Encounter for screening for malignant neoplasm of respiratory organs; Z87.891 Personal history of nicotine dependence
CPT/HCPCS: 71271